=== PATIENT | female | born 1950 | race Caucasian/White ===

== ENCOUNTER → 2018-05-07 10:21 | Outpatient (CLI) | payer OTHER, SELFPAY ==
[2018-03-05 13:05] VITALS: BMI 25.7
[2018-05-07 14:04] LABS: Chlamydia Trachomatis by PCR Negative (Negative); Neisserai gonorrhoeae by PCR Negative (Negative); Probe Check PASS; Sample Adequacy Control PASS; Specimen Processing Control PASS
--- OUTSIDE RECORDS SUMMARY | 2018-07-12 05:00 | XMS RPT_ITS | Clinical Summary ---
:1950 Author Organization [facility], [facility] Address [address] [place] [address] Phone Care Team Providers Name Role Phone Cathy Hilliard Unavailable Conditions or Problems Problem Problem Onset Status Entry Provider Comment Standard Annotate Name Code Date Date Description Body Mass 628411704 Active Yazmin Luna Finding of body Index (SNOMED 11/09 11/09 Clif, mass index 26.0-26.9, CT) PA-C adult Bronchitis, 91473999 Inactive Carson A Acute acute (SNOMED 10/25 10/[address]) Screening 021843777 Active Carson A Screening for for breast (SNOMED 10/06 10/[address] Stan DO [address] cancer CT) neoplasm of breast Body Mass 190396231 Inactive Yazmin Luna Finding of body Index (SNOMED 11/09 11/09 Clif, mass index 28.0-28.9, CT) PA-C adult LONG-TERM 828164955 Active Sheeba Telles Long-term drug (CURRENT) (SNOMED 12/07 12/[address] Gayle therapy [address] OF [address]) RN OTHER MEDICATIONS BODY MASS Z68.30 Resolved Georges Perez Body mass index INDEX (ICD-10-CM 05/13 05/13 [place] (BMI) 30.0-30.9 ) 30.0-30.9, ADULT adult BODY MASS Z68.30 Removed Yazmin Luna Body mass index INDEX (ICD-10-CM 05/13 05/13 Clif, (BMI) 30.0-30.9 ) PA-C 30.0-30.9, ADULT adult Family 466205391 Active Yazmin Luna FH: History of (SNOMED 05/13 Clif, Hypertension Hypertensio CT) PA-C n Family 004851918 Active Yazmin Luna Family history History of (SNOMED 05/13 Clif, of stroke CVA or CT) PA-C Stroke BODY MASS Z68.29 Inactive Georges Perez Body mass index INDEX (ICD-10-CM 11/09 11/09 Moodisp[place]ry (BMI) 29.0-29.9 ) 29.0-29.9, ADULT adult SINUS 12042344 Active Georges Perez Sinus BRADYCARDIA (SNOMED 05/27 05/[address]) SHORTNESS 579213953 Active Shilpa Pereyra Dyspnea OF BREATH (SNOMED 05/17 05/[address]) DIASTOLIC 1266304 Active Shilpa Klein Fair Diastolic DYSFUNCTION (SNOMED 05/17 05/[address]) CHEST PAIN R07.9 Active Shilpa Pereyra Chest pain, UNSPECIFIED (ICD-10-CM 05/17 05/17 RN unspecified ) HYPERLIPIDE 02902365 Active Shilpa Pereyra Hyperlipidemia [place] (SNOMED 05/17 05/[address]) HYPERTENSIO 29092550 Active Shilpa Pereyra Hypertensive N (SNOMED 05/17 05/[address]) PREMATURE 52654452 Active Shilpa Pereyra Ventricular VENTRICULAR (SNOMED 05/17 05/17 RN premature beats CONTRACTION CT) S Medications Medication Instructions Start Stop Generic Name [facility] Provider Date Date LOSARTAN One tablet by / LOSARTAN [id number] Yazmin Luna POTASSIUM 25 MG mouth daily 23 POTASSIUM Clif, TABS PA-C PRAVASTATIN One tablet by / PRAVASTATIN [id number] Georges Perez SODIUM 20 MG mouth daily at 18 SODIUM Chito WONG TABS bedtime LOSARTAN One tablet by / LOSARTAN [id number] Georges Perez POTASSIUM 25 MG mouth daily 21 POTASSIUM Chito WONG TABS LOSARTAN One tablet by / LOSARTAN [id number] Yazmin Luna POTASSIUM 50 MG mouth daily 21 POTASSIUM Clif, TABS PA-C AMLODIPINE One tablet by / AMLODIPINE [id number] Yazmin Luna BESYLATE 2.5 MG mouth daily 22 BESYLATE Clif TABS PA-C LOSARTAN One tablet by / LOSARTAN 44506260145 Yazmin Luna POTASSIUM 50 MG mouth daily POTASSIUM Clif TABS PALaura NORVASC 2.5 MG One tablet by / AMLODIPINE 16115629793 Georges Perez TABS mouth daily BESYLATE Chito WONG NORVASC 2.5 MG One tablet by AMLODIPINE 12058832231 Georges Perez TABS mouth daily BESYLATE Chito WONG CALCIUM CITRATE Elemental / CALCIUM CITRATE 90944783319 Georges F 200 MG TABS calcium Take as Chito WONG directed CALCIUM CITRATE Elemental CALCIUM CITRATE 41869390195 Georges Perez 200 MG TABS calcium Take as Chito WONG directed POTASSIUM 99 MG One tablet by / POTASSIUM 90270899271 Georges F TABS mouth daily as Chito WONG needed POTASSIUM 99 MG One tablet by POTASSIUM 04081836758 Georges Perez TABS mouth daily as Chito WONG needed ATORVASTATIN One tablet by / ATORVASTATIN 58628052073 Georges Perez CALCIUM 20 MG mouth daily CALCIUM Chito WONG TABS ATORVASTATIN One tablet by ATORVASTATIN 36823324569 Yazmin Luna CALCIUM 20 MG mouth daily CALCIUM KENYON MenezesS PA-C ATORVASTATIN One tablet by / ATORVASTATIN [id number] Georges Perez CALCIUM 20 MG mouth daily (on CALCIUM Chito WONG TABS HOLD) ATORVASTATIN One tablet by ATORVASTATIN 63296876478 Sheeba Telles CALCIUM 20 MG mouth daily (on CALCIUM Gayle PARRY TABS HOLD) LISINOPRIL 20 One tablet by / LISINOPRIL 23242363309 Shilpa Klein Fair MG TABS mouth daily RN LISINOPRIL 20 One tablet by LISINOPRIL 43381573741 Georges F MG TABS mouth daily Chito WONG OMEPRAZOLE 20 One tablet by / OMEPRAZOLE 22842104588 Shilpa Klein Fair MG CPDR mouth daily 26 RN OMEPRAZOLE 20 One tablet by OMEPRAZOLE 90060727605 Georges F MG CPDR mouth daily Chito WONG LOSARTAN One tablet by / LOSARTAN 62954433759 Georges Perez POTASSIUM 100 mouth daily 05 POTASSIUM Chito MD MG TABS ATORVASTATIN One tablet by / ATORVASTATIN 27744734322 Shilpa Pereyra CALCIUM 20 MG mouth daily 26 CALCIUM RN TABS ATORVASTATIN One tablet by / ATORVASTATIN 18317783457 Yazmin Luna CALCIUM 20 MG mouth daily CALCIUM Menezes TABS PA-C AMLODIPINE Two tablets by / AMLODIPINE 88851241930 Georges Perez BESYLATE 2.5 MG mouth daily 13 BESYLATE Chito WONG TABS LOSARTAN One tablet by LOSARTAN 65372989141 Carson A POTASSIUM 25 MG mouth daily POTASSIUM Stan DO TABS [facility] FISH OIL 2 capsules by / OMEGA-3 FATTY 84040764608 Carson A 1200 MG CAPS mouth daily 17 ACIDS Stan DO MAG-TAB SR 84 to equeal 20mg, / MAGNESIUM 90267125810 Carson A MG (7MEQ) twice daily 17 LACTATE Stan DO CR-TABS RED WINE 350mg capsules / MISC NATURAL 38265743619 Carson A EXTRACT CAPS 6 times daily 17 PRODUCTS Stan DO PRAVASTATIN One tablet by PRAVASTATIN 30115370882 Yazmin uLna SODIUM 20 MG mouth daily at SODIUM Clif TABS bedtime PA-C CINNAMON 500 MG One tablet by / CINNAMON 96494627638 Georges Perez CAPS mouth daily 08 Chito WONG CINNAMON 500 MG One tablet by CINNAMON 77129779721 Yazmin Luna CAPS mouth daily LING Menezes-C VITAMIN C-GAY One tablet by / ASCORBIC ACID 28051888732 Yazmin Luna HIPS 500 MG mouth daily Menezes, TABS PA-C VITAMIN C-GAY One tablet by ASCORBIC ACID 43293075921 Carson A HIPS 500 MG mouth daily Stan DO TABS AMLODIPINE One tablet by / AMLODIPINE 54073943812 Georges Perez BESYLATE 2.5 MG mouth daily as 22 BESYLATE Chito WONG TABS needed AMLODIPINE One tablet by AMLODIPINE 36059191162 Carson A BESYLATE 2.5 MG mouth daily as BESYLATE Stan DO TABS needed OMEGA 3-6-9 One tablet by / OMEGA 3-6-9 92656485635 Georges Perez COMPLEX CAPS mouth twice 21 FATTY ACIDS Mood[place] MD daily OMEGA 3-6-9 One tablet by OMEGA 3-6-9 77756281116 Carson A COMPLEX CAPS mouth twice FATTY ACIDS Stan DO daily MAGNESIUM CAPS One tablet by / MAGNESIUM CAPS 50425727060 Georges F mouth daily [place] MD MAGNESIUM CAPS One tablet by MAGNESIUM CAPS 93698614779 Carson A mouth daily Stan DO Medications Administered No information available. Allergies, Adverse Reactions, Alerts Allergy Name Reaction Description Start Date Severity Status Provider PRAVASTATIN mylagias Moderate Active Yazmin Menezes PA-C LIPITOR myalgias Moderate Active Sheeba Araujo RN NKDA Mild No Longer Shilpa Pereyra RN Active Results Date Name Value Unit Range Flag Description Clinical Lists Update: Preload TSH 2.06 u[iU]/mL thyroid stimulating hormone, serum VLDL 13 mg/dL very low density lipoproteins GLUCOSE SER 106 mg/dL blood glucose BUN/CREAT 23.3 urea nitrogen/creatinine ratio, serum CREATININE 0.9 mg/dL creatinine, serum BUN 21 mg/dL urea nitrogen, blood ANION GAP 9 anion gap, serum CO2 24.0 mmol/L carbon dioxide, venous blood CHLORIDE 107 mmol/L chloride, serum POTASSIUM 3.9 mmol/L potassium, serum SODIUM 140 mmol/L sodium, serum PLATELETS 288 10*3/mm3 platelet count MCH 28.9 pg mean corpuscular hemoglobin, RBC MCV 85.2 fL mean corpuscular volume, RBC HCT 36.9 % hematocrit, blood HGB 12.5 g/dL hemoglobin, blood RBC M/UL 4.33 10*6/uL red blood count WBC BLOOD 7.2 10*9/L leukocyte (white blood cells) count, blood Office Visit: MM CHD 10YR RSK 7 % General cardiovascular disease 10Y risk [#] [place].D'Agostino CARD RSK GRP B cardiac risk group Clinical Lists Update: Preload CHOL/HDL 3.2 cholesterol/HDL ratio, serum LDH 145 U/L H LACTATE DEHYDROGENASE PROTEIN, TOT 7.4 g/dL protein, total, serum SGOT (AST) 17 U/L aspartate aminotransferase (SGOT), serum SGPT (ALT) 13 U/L alanine aminotransferase (SGPT), serum ALK PHOS 82 U/L alkaline phosphatase, serum BILI DIRECT 0.1 mg/dL bilirubin, serum, direct BILI TOTAL 0.6 mg/dL bilirubin, serum, total ALBUMIN 4.5 g/dL albumin, serum Office Visit: Sick visit ORALTOBACUSE Never Tobacco smoking status NJIS Office Visit: [facility] HGBA1C 5.7 % Hemoglobin A1c/Hemoglobin.total in Blood Replaced Document: Midmark ECG Observations EKG INTERP Sinus Rhythm WITHIN electrocardiogram interpretation NORMAL LIMITS EKG T AXIS 38 deg T wave axis, electrocardiogram EKG QRS AXIS 53 deg QRS axis, electrocardiogram EKG PWAVAXIS 27 deg P wave axis, electrocardiogram QRS INTERVAL 90 ms QRS duration, electrocardiogram ZZ-GE-unk 436 ms GE use only - for LinkLogic import when terms are not otherwise specified QT INTERVAL new path ms QT interval, electrocardiogram VT INTERVAL 168 ms VT interval, electrocardiogram EKGHRTRATE 66 BPM heart rate on electrocardiogram Clinical Lists Update: Preload CARDEFECHO 65 % Left ventricular Ejection fraction Office Visit DIET PURCHASING ADMINISTRATOR yes Dietary management education, guidance, and counseling (procedure) LDL 129 mg/dL Cholesterol in LDL [Mass/volume] in Serum or Plasma HDL 72 mg/dL Cholesterol in HDL [Mass/volume] in Serum or Plasma CHOLESTEROL 219 mg/dL Cholesterol [Mass/volume] in Serum or Plasma TRIGLYCRDES 90 mg/dL Triglyceride [Mass/volume] in Serum or Plasma SMOK STATUS Never smoker Tobacco use [facility] MEDS REVIEW Done Documentation of current medications (procedure) FALLRSKASSES No Fall risk assessment Plan of Care Type Date Detail Appointment 02:30 PM Georges Dale MD, [address], [address], [place], [address], Appointment 01:00 PM Georges Dale MD, [address], [address], [place], [address], Pending order PFM Pending order Follow Up Appt 1 year Pending order EKG (In office) Pending order Nuclear stress test -exercise Pending order PFM Pending order Follow Up Appt 6 months Pending order Nuclear stress test -exercise Pending order MMM Pending order Follow Up Appt 6 months Pending order EKG (In office) Pending order Mammogram, Screening, both breasts Pending order *Hepatic Function Panel Pending order *Lipid Profile CC PCP Pending order PFM Pending order Follow Up Appt 6 months Pending order *Hepatic Function Panel Pending order *Lipid Profile CC PCP Pending order MMM Pending order Follow Up Appt 6 months Pending order EKG (In office) Pending order PFM Pending order Follow Up Appt 6 months Pending order MMM Pending order Follow Up Appt 6 months Pending order PFM Pending order Follow Up Appt 6 months Pending order MMM Pending order Follow Up Appt 6 weeks Patient education CHOLESTEROL%20AND%20YOUR%20HEALTH, LIPID%20PROFILE Procedures Code Procedure Name Date Entry Date CPT-36527 EKG (In office) F/U PFM PFM FUA 6 months Follow Up Appt 6 months CPT-76290 EKG (In office) F/U MMM MMM FUA 6 months Follow Up Appt 6 months CPT-37492 Mammogram, Screening, both breasts 0788-1 *Hepatic Function Panel 45834-8 *Lipid Profile CC PCP F/U PFM PFM FUA 6 months Follow Up Appt 6 months 0788-1 *Hepatic Function Panel 97891-7 *Lipid Profile CC PCP F/U MMM MMM FUA 6 months Follow Up Appt 6 months [id number] SNOMED-CT: 822448867664036 Current Medications Documented CPT-10571 EKG (In office) F/U PFM PFM FUA 6 months Follow Up Appt 6 months [facility]CT[facility][id number] [facility] [id number] Current Medications Documented F/U MMM MMM FUA 6 months Follow Up Appt 6 months F/U PFM PFM FUA 6 months Follow Up Appt 6 months F/U MMM MMM FUA 6 weeks Follow Up Appt 6 weeks Vital Signs Date Name Value Unit Description BMI (Body Mass Index) 27.25 kg/m2 Body Mass Index [Ratio] BP Diastolic 68 mm[Hg] blood pressure, diastolic - 8462-4 BP Systolic 128 mm[Hg] blood pressure, systolic - 8480-6 Heart Rate 64 /min pulse rate E&M - 8867-4 Height 67 [in_us] height E&M - 8302-2 Height 170.18 cm height in centimeters E&M Respiratory Rate 16 /min respiratory rate E&M - 9279-1 Weight Measured 174 [lb_av] weight E&M - 3141-9 Weight Measured 78.92 kg weight in kilograms E&M BSA (Body Surface Area) 1.89 body surface area Body Temperature 98.1 [degF] temperature E&M
--- OUTSIDE RECORDS SUMMARY | 2018-07-12 05:00 | XMS RPT_ITS | Clinical Summary ---
:1950 Author Organization [facility], [facility] Address [address] [place] [address] Phone Care Team Providers Name Role Phone Cathy Hilliard Unavailable Conditions or Problems Problem Problem Onset Status Entry Provider Comment Standard Annotate Name Code Date Date Description Body Mass 206898526 Active Yazmin Luna Finding of body Index (SNOMED 11/09 11/09 Clif, mass index 26.0-26.9, CT) PA-C adult Bronchitis, 04812553 Inactive Carson A Acute acute (SNOMED 10/25 10/[address]) Screening 332457223 Active Carson A Screening for for breast (SNOMED 10/06 10/06 Stan DO malignant cancer CT) neoplasm of breast Body Mass 289240684 Inactive Yazmin Luna Finding of body Index (SNOMED 11/09 11/09 Clif, mass index 28.0-28.9, CT) PA-C adult LONG-TERM 748428763 Active Sheeba Telles Long-term drug (CURRENT) (SNOMED 12/07 12/07 Gayle therapy USE OF CT) RN OTHER MEDICATIONS BODY MASS Z68.30 Resolved Georges Perez Body mass index INDEX (ICD-10-CM 05/13 05/13 [place] (BMI) 30.0-30.9 ) 30.0-30.9, ADULT adult BODY MASS Z68.30 Removed Yazmin Luna Body mass index INDEX (ICD-10-CM 05/13 05/13 Clif, (BMI) 30.0-30.9 ) PA-C 30.0-30.9, ADULT adult Family 658294140 Active Yazmin Luna FH: History of (SNOMED 05/13 Clif, Hypertension Hypertensio CT) PA-C n Family 198951967 Active Yazmin Luna Family history History of (SNOMED 05/13 Clif, of stroke CVA or CT) PA-C Stroke BODY MASS Z68.29 Inactive Georges Perez Body mass index INDEX (ICD-10-CM 11/09 11/09 Mood[place]abarry (BMI) 29.0-29.9 ) 29.0-29.9, ADULT adult SINUS 99704983 Active Georges Perez Sinus BRADYCARDIA (SNOMED 05/27 05/[address]) SHORTNESS 381675768 Active Shilpa Pereyra Dyspnea OF BREATH (SNOMED 05/17 05/[address]) DIASTOLIC 4194965 Active Shilpa Klein Fair Diastolic DYSFUNCTION (SNOMED 05/17 05/[address]) CHEST PAIN R07.9 Active Shilpa Pereyra Chest pain, UNSPECIFIED (ICD-10-CM 05/17 05/17 RN unspecified ) HYPERLIPIDE 76600594 Active Shilpa Pereyra Hyperlipidemia [place] (SNOMED 05/17 05/[address]) HYPERTENSIO 03961309 Active Shilpa Pereyra Hypertensive N (SNOMED 05/17 05/[address]) PREMATURE 44444712 Active Shilpa Pereyra Ventricular VENTRICULAR (SNOMED 05/17 05/17 RN premature beats CONTRACTION CT) S Medications Medication Instructions Start Stop Generic Name [facility][NOTE 3] Provider Date Date LOSARTAN One tablet by / LOSARTAN [id number] Yazmin Luna POTASSIUM 25 MG mouth daily 23 POTASSIUM Clif, TABS PA-C PRAVASTATIN One tablet by / PRAVASTATIN 72763569430 Georges Perez SODIUM 20 MG mouth daily at 18 SODIUM Chito WONG TABS bedtime LOSARTAN One tablet by / LOSARTAN 95229001696 Georges Perez POTASSIUM 25 MG mouth daily 21 POTASSIUM Chito WONG TABS LOSARTAN One tablet by / LOSARTAN 14160391402 Yazmin Luna POTASSIUM 50 MG mouth daily 21 POTASSIUM Clif, TABS PA-C AMLODIPINE One tablet by / AMLODIPINE 17822176621 Yazmin Luna BESYLATE 2.5 MG mouth daily 22 BESYLATE Clif TABS PA-C LOSARTAN One tablet by / LOSARTAN 61897704719 Yazmin Luna POTASSIUM 50 MG mouth daily POTASSIUM Clif TABS PALaura NORVASC 2.5 MG One tablet by / AMLODIPINE 59713076044 Georges Perez TABS mouth daily BESYLATE Chito WONG NORVASC 2.5 MG One tablet by AMLODIPINE 85655896390 Georges Perez TABS mouth daily BESYLATE Chito WONG CALCIUM CITRATE Elemental / CALCIUM CITRATE 48585386661 Georges F 200 MG TABS calcium Take as Chito WONG directed CALCIUM CITRATE Elemental CALCIUM CITRATE 38650347535 Georges Perez 200 MG TABS calcium Take as Chito WONG directed POTASSIUM 99 MG One tablet by / POTASSIUM 33633071751 Georges F TABS mouth daily as Chito WONG needed POTASSIUM 99 MG One tablet by POTASSIUM 01011785062 Georges Perez TABS mouth daily as Chito WONG needed ATORVASTATIN One tablet by / ATORVASTATIN 57708158599 Georges Perez CALCIUM 20 MG mouth daily CALCIUM Chito WONG TABS ATORVASTATIN One tablet by ATORVASTATIN 86040636468 Yazmin Luna CALCIUM 20 MG mouth daily CALCIUM KENYON MenezesS PA-C ATORVASTATIN One tablet by / ATORVASTATIN 93214517051 Georges Perez CALCIUM 20 MG mouth daily (on CALCIUM Chito WONG TABS HOLD) ATORVASTATIN One tablet by ATORVASTATIN 35840364425 Sheeba Telles CALCIUM 20 MG mouth daily (on CALCIUM Gayle PARRY TABS HOLD) LISINOPRIL 20 One tablet by / LISINOPRIL 94031507983 Shilpa Klein Fair MG TABS mouth daily RN LISINOPRIL 20 One tablet by LISINOPRIL 43245358175 Georges F MG TABS mouth daily Chito WONG OMEPRAZOLE 20 One tablet by / OMEPRAZOLE 01193102085 Shilpa Klein Fair MG CPDR mouth daily 26 RN OMEPRAZOLE 20 One tablet by OMEPRAZOLE 82946425961 Georges F MG CPDR mouth daily Chito WONG LOSARTAN One tablet by / LOSARTAN 10325450003 Georges Perez POTASSIUM 100 mouth daily 05 POTASSIUM Chito MD MG TABS ATORVASTATIN One tablet by / ATORVASTATIN 33701791260 Shilpa Pereyra CALCIUM 20 MG mouth daily 26 CALCIUM RN TABS ATORVASTATIN One tablet by / ATORVASTATIN 80670532701 Yazmin Luna CALCIUM 20 MG mouth daily CALCIUM Menezes TABS PA-C AMLODIPINE Two tablets by / AMLODIPINE 11726980298 Georges Perez BESYLATE 2.5 MG mouth daily 13 BESYLATE Chito WONG TABS LOSARTAN One tablet by LOSARTAN 55349565206 Carson A POTASSIUM 25 MG mouth daily POTASSIUM Stan DO TABS [facility] FISH OIL 2 capsules by / OMEGA-3 FATTY 91243986049 Carson A 1200 MG CAPS mouth daily 17 ACIDS Stan DO MAG-TAB SR 84 to equeal 20mg, / MAGNESIUM 87786785307 Carson A MG (7MEQ) twice daily 17 LACTATE Stan DO CR-TABS RED WINE 350mg capsules / MISC NATURAL 32714095840 Carson A EXTRACT CAPS 6 times daily 17 PRODUCTS Stan DO PRAVASTATIN One tablet by PRAVASTATIN 84246830047 Yazmin Luna SODIUM 20 MG mouth daily at SODIUM Clif TABS bedtime PA-C CINNAMON 500 MG One tablet by / CINNAMON 53951805269 Georges Perez CAPS mouth daily 08 Chito WONG CINNAMON 500 MG One tablet by CINNAMON 95117969022 Yazmin Luna CAPS mouth daily LING Menezes-C VITAMIN C-GAY One tablet by / ASCORBIC ACID 27496223800 Yazmin Luna HIPS 500 MG mouth daily Menezes, TABS PA-C VITAMIN C-GAY One tablet by ASCORBIC ACID 37593471327 Carson A HIPS 500 MG mouth daily Stan DO TABS AMLODIPINE One tablet by / AMLODIPINE 49685802232 Georges Perez BESYLATE 2.5 MG mouth daily as 22 BESYLATE Chito WONG TABS needed AMLODIPINE One tablet by AMLODIPINE 14658083769 Carson A BESYLATE 2.5 MG mouth daily as BESYLATE Stan DO TABS needed OMEGA 3-6-9 One tablet by / OMEGA 3-6-9 81181647270 Georges Perez COMPLEX CAPS mouth twice 21 FATTY ACIDS Mood[place] MD daily OMEGA 3-6-9 One tablet by OMEGA 3-6-9 86175473633 Carson A COMPLEX CAPS mouth twice FATTY ACIDS Stan DO daily MAGNESIUM CAPS One tablet by / MAGNESIUM CAPS 81454840568 Georges F mouth daily Mood[place] MD MAGNESIUM CAPS One tablet by MAGNESIUM CAPS 02720214626 Carson A mouth daily Stan DO Medications [...] % General cardiovascular disease 10Y risk [#] [place].D'Agostino CARD RSK GRP B cardiac risk group [...] Sick visit ORALTOBACUSE Never Tobacco smoking status VAIS Office Visit: [facility] HGBA1C 5.7 % Hemoglobin A1c/Hemoglobin.total in Blood [...] INTERVAL new path ms QT interval, electrocardiogram NE INTERVAL 168 ms NE interval, electrocardiogram EKGHRTRATE 66 BPM heart rate on electrocardiogram Clinical Lists Update: Preload CARDEFECHO 65 % Left ventricular Ejection fraction 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 Dietary management education, guidance, and counseling (procedure) LDL 129 mg/dL Cholesterol in LDL [Mass/volume] in Serum or Plasma HDL 72 mg/dL Cholesterol in HDL [Mass/volume] in Serum or Plasma CHOLESTEROL 219 mg/dL Cholesterol [Mass/volume] in Serum or Plasma TRIGLYCRDES 90 mg/dL Triglyceride [Mass/volume] in Serum or Plasma SMOK STATUS Never smoker Tobacco use [facility] MEDS REVIEW Done Documentation of current medications (procedure) FALLRSKASSES No Fall risk assessment Plan of Care Type Date Detail Appointment 01:00 PM Georges Dale MD, [address], [address], [place], [address], Pending order PFM Pending order Follow Up [...] Procedures Code Procedure Name Date Entry Date CPT-37434 EKG (In office) F/U PFM PFM FUA 6 months Follow Up Appt 6 months CPT-50168 EKG (In office) F/U MMM MMM FUA 6 months Follow Up Appt 6 months CPT-03173 Mammogram, Screening, both breasts 0788-1 *Hepatic Function Panel 99280-1 *Lipid Profile CC PCP F/U PFM PFM FUA 6 months Follow Up Appt 6 months 0788-1 *Hepatic Function Panel 56817-7 *Lipid Profile CC PCP F/U MMM MMM FUA 6 months Follow Up Appt 6 months [id number] SNOMED-CT: [id number] Current Medications Documented CPT-81462 EKG (In office) F/U PFM PFM FUA 6 months Follow Up Appt 6 months SCT-[id number] SNOMED-CT: [id number] Current Medications Documented F/U MMM MMM FUA [...]
--- OUTSIDE RECORDS SUMMARY | 2018-07-12 05:00 | XMS RPT_ITS ---
:1950 Author Organization OHIP Care Team Providers Name Role Phone DONG DUNN Admitting Unavailable DONG DUNN Attending Unavailable DONG DUNN Primary Care Unavailable DARON PIERCE Consulting Unavailable PROVIDER, UNKNOWN Consulting Unavailable Daron Pierce Attending Unavailable Daron Pierce Primary Care Unavailable Yazmin May Attending Unavailable Georges Dale Attending Unavailable Daron Pierce Referring Unavailable PROBLEMS PROBLEMS DATE TYPE CONDITION / CODE ATTENDING STATUS SOURCE 05/08/2018 Unknown N34.2 - Other Daron Pierce Active [place] urethritis / Community N34.2(ICD-10) Hospital Repository PROCEDURES PROCEDURES No Procedure Records FoundRESULTS RESULTS CT/NG [facility] BY PCR Collected: 05/07/2018 Status: F Source: [place] [facility] TYPE CODE TESTS RESULT OUT OF RANGE REFERENCE UNITS LAB L8200.2100 Negative Normal Chlam Negative Trac PCR LAB L8200.2200 Negative Normal NG by Negative PCR Performed By: #### L8200.2000 #### [facility] [address] [place], [address] PROGRESS Observed: 04/29/2018 Status: COMPLETED Source: [place] 4:29 PM [facility] REPOSITORY HNO ID: [id number] Author: Sean Contreras) [place] Service: (none) Author Type: Physician Patient Partner Type: Progress Notes Filed: 04/29/2018 4:31 PM Note Text: Subjective HPI Patient presents with chief complaint of dysuria and frequency over the past week. She denies any fever or chills. Chest some back pain yesterday but that went away. She is having some suprapubic discomfort. No vomiting or diarrhea. No vaginal discharge. Review of Systems Gastrointestinal: Positive for abdominal pain. Negative for diarrhea, nausea and vomiting. Genitourinary: Positive for dysuria, frequency and urgency. Negative for flank pain and hematuria. All other systems reviewed and are negative. PAST MEDICAL HISTORY Diagnosis Date - Abnormal nuclear stress test 2002 - Anxiety state, unspecified Anxiety state - Benign neoplasm of stomach - GERD (gastroesophageal reflux disease) 07/12/2010 - Hyperlipidemia LDL goal < 130 02/06/2011 - Nonspecific abnormal finding in stool contents - Other symptoms involving digestive system(787.99) Current Outpatient Prescriptions: cephALEXin (KEFLEX) 500 mg capsule Take 1 capsule by mouth twice daily for 7 days. Disp: 14 capsule Rfl: 0 atorvastatin (LIPITOR) 20 mg tablet Take 1 tablet by mouth once daily. For cholesterol. (Patient not taking: Reported on 04/29/2018 ) Disp: 30 tablet Rfl: 12 cyclobenzaprine 10 mg tablet Take 1 tablet by mouth three times daily as needed for Muscle Spasm. (Patient not taking: Reported on 04/29/2018 ) Disp: 30 tablet Rfl: 3 omeprazole 20 mg capsule Take 1 capsule by mouth daily before breakfast. 1/2 hr before meal. (Patient not taking: Reported on 04/29/2018 ) Disp: 30 capsule Rfl: 0 Bee Pollen 580 mg cap Take by mouth once daily as needed. Disp: Rfl: OMEGA-3/DHA/EPA/FISH OIL (OMEGA-3 FISH OIL ORAL) Take by mouth once daily. Disp: Rfl: COMPOUNDED PRESCRIPTION Take 1 tablet by mouth once daily. Advanced cholesterol formula1 tablets daily (Patient not taking: Reported on 04/29/2018 ) Disp: Rfl: 0 No current facility-administered medications for this visit. PAST SURGICAL HISTORY Procedure Laterality Date - BREAST BIOPSY X 2 - COLONOSCOP W/ OR W/O [facility] SPEC 02/20/12 Colonoscopy repeat 10 years - EGD W/O OR W/BRUSH/WASH 11/17/2010 EGD - EGD W/O OR W/BRUSH/WASH 02/20/12 EGD - TOTAL ABDOM HYSTERECTOMY 2002 BSO also FAMILY HISTORY Problem Relation Age of Onset - Breast Cancer Sister - Diabetes Paternal Grandfather - Colon Cancer Maternal Grandmother Social History Substance Use Topics - Smoking status: Never Smoker - Smokeless tobacco: Never Used - Alcohol use No BP 182/104 Pulse 66 Temp 37.1 ?C (98.7 ?F) (Tympanic) Resp 18 Wt 73.3 kg (161 lb 9.6 oz) SpO2 98% BMI 26.08 kg/m? Objective Physical Exam Constitutional: She is oriented to person, place, and time and well-developed, well-nourished, and in no distress. HENT: Head: Normocephalic and atraumatic. Neck: Normal range of motion. Neck supple. Cardiovascular: Normal rate, regular rhythm and normal heart sounds. Pulmonary/Chest: Effort normal and breath sounds normal. Abdominal: Soft. Bowel sounds are normal. She exhibits no distension and no mass. There is no tenderness. There is no rebound and no guarding. Musculoskeletal: No cva tenderness Neurological: She is alert and oriented to person, place, and time. Skin: Skin is warm and dry. No rash noted. Psychiatric: Affect normal. Nursing note and vitals reviewed. ASSESSMENT/PLAN: 1. Dysuria - ICD9: 788.1, ICD10: R30.0 (primary diagnosis) acute - UA positive for paul esterase and hematuria - Send urine for culture - Begin treatment with keflex for 7 days - UA DIP, URINE (POC) - URINE CULTURE 2. Acute cystitis with hematuria - ICD9: 595.0, ICD10: N30.01 Sean Muller PA-C Observed: 04/29/2018 Status: F Source: [place] URINE CULTURE 4:00 PM [facility] REPOSITORY Sp. Request/Comment: - Specimen received in preservative Culture Result - 10,000 - <50,000 CFU/ml Lactose negative gram negative bacilli --> ABNORMAL ALERT Insignificant colony count. No further workup. --> ABNORMAL ALERT <10,000 CFU/ml Normal urogenital cindy Performed By: #### URCUL #### [facility] [address] [place] [address] CNOV Observed: 04/29/2018 Status: COMPLETED Source: [place] 3:45 PM [facility] REPOSITORY Office Visit ([facility]) RENEA MANN ([id number]) 1950 F Date Time Provider Department 04/29/18 3:45 PM SEAN MULLER (LING) [facility] During your visit today, we recorded the following information about you: Temperature Pulse Respiration Blood pressure 98.7 degrees 66/minute 18/minute 182/104 Weight 73.3 kg Sean Muller PA-C 04/29/2018 4:31 PM Signed Subjective HPI Patient presents with chief complaint of dysuria and frequency over the past week. She denies any fever or chills. Chest some back pain yesterday but that went away. She is having some suprapubic discomfort. No vomiting or diarrhea. No vaginal discharge. Review of Systems Gastrointestinal: Positive for abdominal pain. Negative for diarrhea, nausea and vomiting. Genitourinary: Positive for dysuria, frequency and urgency. Negative for flank pain and hematuria. All other systems reviewed and are negative. PAST MEDICAL HISTORY Diagnosis Date - Abnormal nuclear stress test 2002 - Anxiety state, unspecified Anxiety state - Benign neoplasm of stomach - GERD (gastroesophageal reflux disease) 07/12/2010 - Hyperlipidemia LDL goal < 130 02/06/2011 - Nonspecific abnormal finding in stool contents - Other symptoms involving digestive system(787.99) Current Outpatient Prescriptions: cephALEXin (KEFLEX) 500 mg capsule Take 1 capsule by mouth twice daily for 7 days. Disp: 14 capsule Rfl: 0 atorvastatin (LIPITOR) 20 mg tablet Take 1 tablet by mouth once daily. For cholesterol. (Patient not taking: Reported on 04/29/2018 ) Disp: 30 tablet Rfl: 12 cyclobenzaprine 10 mg tablet Take 1 tablet by mouth three times daily as needed for Muscle Spasm. (Patient not taking: Reported on 04/29/2018 ) Disp: 30 tablet Rfl: 3 omeprazole 20 mg capsule Take 1 capsule by mouth daily before breakfast. 1/2 hr before meal. (Patient not taking: Reported on 04/29/2018 ) Disp: 30 capsule Rfl: 0 Bee Pollen 580 mg cap Take by mouth once daily as needed. Disp: Rfl: OMEGA-3/DHA/EPA/FISH OIL (OMEGA-3 FISH OIL ORAL) Take by mouth once daily. Disp: Rfl: COMPOUNDED PRESCRIPTION Take 1 tablet by mouth once daily. Advanced cholesterol formula1 tablets daily (Patient not taking: Reported on 04/29/2018 ) Disp: Rfl: 0 No current facility-administered medications for this visit. PAST SURGICAL HISTORY Procedure Laterality Date - BREAST BIOPSY X 2 - COLONOSCOP W/ OR W/O [facility] SPEC 02/20/12 Colonoscopy repeat 10 years - EGD W/O OR W/BRUSH/WASH 11/17/2010 EGD - EGD W/O OR W/BRUSH/WASH 02/20/12 EGD - TOTAL ABDOM HYSTERECTOMY 2002 BSO also FAMILY HISTORY Problem Relation Age of Onset - Breast Cancer Sister - Diabetes Paternal Grandfather - Colon Cancer Maternal Grandmother Social History Substance Use Topics - Smoking status: Never Smoker - Smokeless tobacco: Never Used - Alcohol use No BP 182/104 Pulse 66 Temp 37.1 ?C (98.7 ?F) (Tympanic) Resp 18 Wt 73.3 kg (161 lb 9.6 oz) SpO2 98% BMI 26.08 kg/m? Objective Physical Exam Constitutional: She is oriented to person, place, and time and well-developed, well-nourished, and in no distress. HENT: Head: Normocephalic and atraumatic. Neck: Normal range of motion. Neck supple. Cardiovascular: Normal rate, regular rhythm and normal heart sounds. Pulmonary/Chest: Effort normal and breath sounds normal. Abdominal: Soft. Bowel sounds are normal. She exhibits no distension and no mass. There is no tenderness. There is no rebound and no guarding. Musculoskeletal: No cva tenderness Neurological: She is alert and oriented to person, place, and time. Skin: Skin is warm and dry. No rash noted. Psychiatric: Affect normal. Nursing note and vitals reviewed. ASSESSMENT/PLAN: 1. Dysuria - ICD9: 788.1, ICD10: R30.0 (primary diagnosis) acute - UA positive for paul esterase and hematuria - Send urine for culture - Begin treatment with keflex for 7 days - UA DIP, URINE (POC) - URINE CULTURE 2. Acute cystitis with hematuria - ICD9: 595.0, ICD10: N30.01 Sean Muller PA-C Referring Provider: SELF [200] Allergies As of Date: 04/29/2018 Noted Allergy Reaction SIMVASTATIN 04/09/2011 14 - Other: See Comments Comments: myalgia Date Reviewed: 04/29/2018 Reviewed by: Mary Carmen Lee LPN - Fully Assessed Reason for Visit: UTI [116] Cmt: burning, urgency and freuqency with urination x 1 week Primary Visit Diagnosis:Dysuria [R30.0] Other Visit Diagnosis:Acute cystitis with hematuria [N30.01] Order(s):UA DIP, URINE (POC) [[id number]] Order #: [id number]. #:[id number] URINE CULTURE [SQURCUL] Order #: [id number] cephALEXin (KEFLEX) 500 mg capsuleTake 1 capsule by mouth twice daily for 7 days.Disp: 14 capsuleRfl: 0 Prescriptions as of 04/29/2018 Sig: CEPHALEXIN 500 MG CAPSULE Take 1 capsule by mouth twice* ATORVASTATIN 20 MG TABLET Take 1 tablet by mouth once d* Patient not taking: Reported on 04/29/2018 CYCLOBENZAPRINE 10 MG TABLET Take 1 tablet by mouth three * Patient not taking: Reported on 04/29/2018 OMEPRAZOLE 20 MG CAPSULE,STACY* Take 1 capsule by mouth daily* Patient not taking: Reported on 04/29/2018 * BEE POLLEN 580 MG CAPSULE Take by mouth once daily as * * OMEGA-3 FISH OIL ORAL Take by mouth once daily. * COMPOUNDED PRESCRIPTION Take 1 tablet by mouth once d* Patient not taking: Reported on 04/29/2018 Problem List As Of Date 04/29/2018 Noted Resolved LUMP OR MASS IN BREAST [N63.0] INVALID FOR* ATROPHIC VAGINITIS [N95.2] INVALID FOR* FEMALE STRESS INCONTINENCE [N39.3] INVALID FOR* Cystocele, Midline [N81.11] INVALID FOR* GERD (gastroesophageal reflux disease) [K21.9] INVALID FOR* Esophagitis [K20.9] INVALID FOR* Acute gastritis without mention of hemorrhage [*INVALID FOR* Hyperlipidemia LDL goal < 130 [E78.5] INVALID FOR* Abnormal nuclear stress test [R94.39] INVALID FOR* Prescriptions ordered this encounter Disp Refills Start End CEPHALEXIN 500 MG CAPSULE 14 c* 0 04/29/2018 05/06/2018 Class: Print RX Route: ORAL Sig: Take 1 capsule by mouth twice daily for 7 days. Encounter Status:Closed by SEAN MULLER PA-C on 04/29/18 CARDIOLOGY VISIT Observed: 03/05/2018 Status: F Source: [place] REPORT 4:33 PM [facility] REPOSITORY [facility] [address] [place] [address] OFFICE VISIT Date of Service: 03/05/18 MR#: [id number] Acct: [id number] Name: RENEA MANN Rep #: [id number] : 1950 Provider: Georges Dale MD Age/Sex: 67/F Location: [facility] Status: Signed HPI HPI Details: RENEA MANN, is a 67 F who presents to the office today for outpatient cardiovascular follow-up. Since her visit of approximately 1 year ago she states overall from a cardiac standpoint she has done well. She describes no symptoms of classic angina pectoris nor she had any overt episodes of CHF or pulmonary edema. There has been no near syncope or syncope. She has been following her blood pressures at home. She brings in with her. Overall her blood pressures appear to have been under reasonably good control. She states this is without antihypertensive therapy other than on a as needed basis. She states if her blood pressures elevate she will decide whether she takes an amlodipine versus a losartan although she is concerned that the losartan makes her blood pressure too low. She states she was given ramipril by her PCP to take on a as needed basis but she has not done so as the pharmacist indicated that that is not a usual as needed medication. She did have her lipids checked on 02/05/2018. At that time her total cholesterol was reported at 293 with an LDL of 184 and an HDL of 92. Her triglyceride was 87. This is without lipid-lowering medication as she states she has been intolerant to them in the past and has not wanted to retry them. Intake Vital Signs03/05/18 Height 5 ft 6 in 03/05/18 Weight: 159 lb 03/05/18 Body Mass Index (BMI) 25.7 03/05/18 Blood Pressure 152/82 H Intake Visit Reasons: 1 Y FU Allergies atorvastatin [From Lipitor] Adverse Reaction (Severe, Verified 03/05/18 13:05) Myalgias pravastatin Adverse Reaction (Severe, Verified 03/05/18 13:05) Myalgias Medications [place]-3/Dha/Epa/Fish Oil [Fish Oil Dr 500 mg Softgel] 1 ea PO DAILY 12/13/16 [History Confirmed 03/05/18] Wine Extract 4 cap PO DAILY 12/13/16 [History Confirmed 03/05/18] amlodipine 5 mg tablet 5 mg PO DAILY PRN #30 tab 03/05/18 [Rx Confirmed 03/05/18] ascorbic acid (vitamin C) 500 mg tablet 500 mg PO DAILY 03/05/18 [History Confirmed 03/05/18] [facility] Medical History Diastolic dysfunction (Acute) Hyperlipemia (Chronic) Essential hypertension (Chronic) Premature ventricular contraction (Acute) GERD (gastroesophageal reflux disease) (Chronic) Surgical History History of total hysterectomy (Resolved) Family History Father CAD (coronary artery disease) Myocardial infarction, Onset Age: 50 Mother TIA (transient ischemic attack) CVA (cerebral vascular accident) Hypertension Atrial fibrillation Social History Smoking Status: Never smoker alcohol intake: never substance use type: does not use ROS Const Const: Negative for fatigue, weakness, weight gain, weight loss, frequent falls or excessive sweating Eyes Eyes: Negative for change in vision, blurry vision or transient loss of vision ENT ENT: Positive for balance problems (slight unsteadiness); negative for dizziness Cardio Chest Pain: No Palpitations: Yes (rare) Edema: None Muscle aches with walking: None Resp Respiratory: Positive for SOB with activity (slight while going upsatirs); negative for SOB at rest GI GI: Negative vomiting or vomiting blood/hematemesis : Negative for hematuria Musc Musc: Positive for balance problems (slight unsteadiness); negative for muscle aches/ myalgia, muscle weakness or joint pain Skin Skin: Negative non-healing lesions or rash Neuro Neuro: Positive for lack of coordination (patient reports having trouble going upstairs not picking up feet); negative for weakness, blurry vision, dizziness, lightheadedness, frequent falls or orthostatic symptoms Dionicio Hematologic/Lymphatic: Negative for easy bleeding Endo Endo: Negative for fatigue or excessive sweating Psych Psych: Negative for anxiety or depression Allergy Allergy/Immunology: Negative for hives, Negative for rash Cardiology Exam Const Appearance: cooperative, healthy appearing, comfortable, no acute distress, well developed and well groomed Nutritional Appearance: thin Orientation: alert, awake and oriented x3 Head Head: normal to inspection, normocephalic and atraumatic Ears: hearing grossly normal bilaterally Nose: external nose normal Face and Sinus: face symmetric Mouth: oral mucosae normal Teeth and gingiva: fair dentition Eyes Eyelids: eyelids normal Conjunctivae: conjunctivae normal Pupils: PERRL EOM: EOM intact bilaterally Neck Neck: normal visual inspection Carotids: normal carotid upstroke Chest Chest inspection: normal inspection of the chest and symmetric chest movement Auscultation: Bilateral: Clear to Auscultation Cardio Palpation: normal PMI Rate: regular rate Rhythm: regular rhythm Heart sounds: S1 normal and S2 normal Murmur: Grade 2/6, soft, mid systolic, LLSB and LVOT GI GI: normal to inspection, bowel sounds present and soft Neuro General: alert, awake, oriented x3, gait normal, moves all extremities, no focal sensory deficit and no focal motor deficits Skin Skin: no rashes or lesions noted Extremities Pulses: Normal: Right Radial Pulse, Left Radial Pulse Lower Extremity Edema: None: Bilateral Psych Psychological: normal affect Supplemental Info Transthoracic echocardiogram: 05/18/2016 Interpretation Summary Left ventricular systolic function is normal. The estimated ejection fraction is 65 %. Trivial mitral valve insufficiency. Trivial tricuspid valve insufficiency. Mild diffuse aortic valve thickening. Trivial eccentric pulmonic valve insufficiency. Stress test: 05/18/2016 Time The patient exercised on a Jorge protocol for 6 minutes and 30 seconds completing stage 2 and 30 seconds of stage 3, achieving a peak heart rate of 146 beats per minute (93% predicted maximum heart rate) and a peak blood pressure of 182/84 mmHg and a peak MET capacity of 7 METS. The baseline ECG demonstrated normal sinus rhythm. The peak exercise ECG demonstrated no obvious ECG changes. There was an isolated PVC during exercise. The functional capacity was considered average. The patient had no complaint of chest discomfort during exercise or recovery. The examination was discontinued secondary to dyspnea and leg discomfort. IMPRESSION: 1. Technically adequate (percent predicted maximum heart rate greater than 85%) exercise tolerance test. 2. Peak exercise ECG with no obvious ECG changes. 3. Isolated PVC during exercise. 4. Nuclear images pending. MYOCARDIAL PERFUSION IMAGING STUDY: TECHNIQUE: The patient was injected with 11.1 mCi of Tc99m Cardiolite and subsequently rest SPECT Cardiolite nuclear imaging was obtained in the horizontal long, vertical long and short axes views. The patient exercised on a Jorge protocol for 6 minutes and 30 seconds completing stage 2 and 30 seconds of stage 3, achieving a peak heart rate of 146 beats per minute (93% predicted maximum heart rate) and a peak blood pressure of 182/84 mmHg and a peak MET capacity of 7 METS. The patient was injected with 33.5 mCi of Tc99m Cardiolite and subsequently stress SPECT Cardiolite nuclear imaging was obtained in the horizontal long, vertical long and short axes views. A gated Cardiolite study at peak stress was obtained. INTERPRETATION: Rest and stress SPECT Cardiolite nuclear imaging, status post realignment, normalization, pre-attenuation, post-attenuation correction demonstrates the appearance of diminished tracer uptake in the distal anterior segments on the resting views, which appears to be improved and/or normalized on the stress views. There are similar type findings on the resting and stress polar map images. There is notation of end systolic thickening and brightening. The gated Cardiolite study demonstrates myocardial thickening and inward wall motion. The reported LVEF is 68%. There are no myocardial perfusion changes considered diagnostic for associated stress-induced myocardial ischemia or previous myocardial injury/infarction. IMPRESSION: 1. Rest and stress SPECT Cardiolite nuclear imaging demonstrate the appearance of myocardial perfusion changes at rest, which appear to improve and/or normalize following stress appearing compatible with shifting soft tissue attenuation/artifact with no myocardial perfusion changes considered diagnostic for associated stress-induced myocardial ischemia or previous myocardial injury/infarction. 2. The gated Cardiolite study reports an LVEF of 68%. Cardiac cath: 03/10/2003 CONCLUSIONS: 1. Normal left ventricular systolic function, ejection fraction 63%. 2. Mild diastolic dysfunction. 3. Normal coronary arteries. Holter monitor: 08/04/2012 NORMAL SINUS RHYTHM MINIMUM [id number]:41 AM, NOACTIVITYORSYMPTOM RECORDED. AVERAGE HR 77 BPM MAXIMUM HR 135 8PM AT 8:48:05 AM, NO ACTIVITY OR SYMPTOM RECORDED. RARE ISOLATED PREMATURE ATRIAL COMPLEXES. ONE ATRIAL COUPLET. NO RUNS NOTED. FREQUENT ISOLATED PREMATURE VENTRICULAR COMPLEXES. OCCASIONAL VENTRICULAR BIGEMINY AND TRIGEMINY. NO RUNS NOTED. ONE SYMPTOM OF CHEST PAIN DOCUMENTED IN 24 HOUR HOLTER DIARY. MONITOR DURING THIS EPISODE SHOWED SINUS TACHYCARDIA RATE 103 BPM WITH AN ISOLATED PREMATURE VENTRICULAR COMPLEX. NO ST CHANGES NOTED. Assessment AND Plan 1. Premature ventricular beat I49.3 Plan At the present time she appears to be doing well with no concerning ectopy or hemodynamic compromise. She will continue to be followed 2. Hyperlipidemia, unspecified hyperlipidemia type E78.5 Plan Her lipid labs are elevated. She does not want to retry lipid-lowering medication. Her graph she wants to pursue her dietary adjustment. She states she has not been as physically active as she should be. She wants to try and become more active with the hopes that that will help her lipid profile 3. Essential hypertension I10 Plan Her blood pressures at the moment appear recently well controlled based on her home blood pressure recordings. They are somewhat elevated today. She does not want to take medication on a regular routine basis. She only wants to use as needed blood pressure medication. Thus at the present time she was asked to only use her amlodipine as a as needed medication unless otherwise not tolerated. She was asked not to mix and match her other antihypertensive therapies. She was asked to discontinue them. Of note with her other medications such as her losartan she states she was quartering those medications to take for her blood pressure because of her concern that her blood pressure would be too low Plan Detail Other Medications New: Discontinued: Additional Comments Again she was asked to monitor her vital signs. She was asked to report any concerns. She was asked to consider if need be taking antihypertensive therapy on a regular basis. She states depending upon her blood pressure recordings she will consider it. She will work as best she can with her diet and activity bring her lipids under better control. Again she does not want to take lipid-lowering medication Thank you for allowing me to participate in the care of your patient. Please don't hesitate to call if any issues arise. This note was generated using a voice recognition system and there may be incorrect words, spelling or punctuation that were not noted when reviewing the office note prior to saving. Follow Up 1 Year (PFM) Coding Level of Care Code Off vis,est,level 3 Diagnoses Premature ventricular beat I49.3 Hyperlipidemia, unspecified hyperlipidemia type E78.5 Hyperlipidemia type: unspecified Essential hypertension I10 Coding Level of Care Code Off vis,est,level 3 Diagnoses Premature ventricular beat I49.3 Hyperlipidemia, unspecified hyperlipidemia type E78.5 Hyperlipidemia type: unspecified Essential hypertension I10 03/05/18 1633 <Electronically signed by Georges Dale MD> Date Georges Dale MD Cosigner Signature: Date (if applicable) CC: Daron Pierce DO LIPID PROFILE Collected: 02/05/2018 Status: F Source: [facility] 7:40 AM [facility] REPOSITORY TYPE CODE TESTS RESULT OUT OF REFERENCE UNITS RANGE LAB LIPID PROFILE(LOIN C) LIPID PROFILE Result Comment: LIPID PROFILE LAB TRIGLYCERIDE(LOINC) 0 - 150 mg/dl TRIGLYCERIDE 87 LAB CHOLESTEROL(LOINC) 0 - 200 mg/dl CHOLESTEROL High 293 LAB HDL(LOINC) 40 - 60 mg/dl HDL High 92 LAB CHOL/HDL(LOINC) 0.0 - 5.0 CHOL/HDL 3.2 LAB LDL(LOINC) 0 - 129 mg/dl LDL High 184 Performed By: #### [id number] #### [facility],[address] [place] [address] ALLERGIES ALLERGIES DATE TYPE / CODE NAME / CODE REACTION SEVERITY SOURCE 03/05/2018 Drug pravastatin/[id number] MYALGIAS SV [place] Allergy/416 3606(RXNORM) [facility] 155296([facility] ED CT) Repository 03/05/2018 Drug atorvastatin/F0060 MYALGIAS SV [place] Allergy/416 39353(RXNORM) [facility] 164331([facility] ED CT) Repository 04/09/2011 DRUG SIMVASTATIN OTHER: SEE [facility] INGREDI/[address] [place] 399950(SN Repository ED CT) Drug NKDA - NO KNOWN Moderate Michele Pomerene Allergy/416 DRUG ([facility] [id number]([facility] ALLERGIES/[id number] Modifier) Hospital ED CT) (RXNORM) (Qualifier Repository Value) ENCOUNTERS ENCOUNTERS ADMIT/DISCHARGE ACCOUNT ADMITTING ENCOUNTER LOCATION SOURCE NUMBER CLASS 05/07/2018 [id number] [facility] ing:BFHLAB Repository 04/29/2018/04/30/19 [id number] Ambulatory [address] Repository 03/05/2018/03/05/20 [id number] Ambulatory BMSBuilding:B [place] [facility] [place] Repository 03/03/2018 [id number] Ambulatory BMSBuilding:[place] Repository 02/05/2018/02/06/20 [id number] MICHELE, Ambulatory Michele Pomerene 18 [facility] Repository PAYERS PAYERS ENCOUNTER GUARANTOR PAYER SUBSCRIBER SOURCE 05/07/2018 Josemanuel [id number] Insurance:[facility]: [address] [id number] [address]Hla: GROUPPolicy Number: Repository [id number] () Date: [facility] [address] [place] [address] [id number]: 05/07/2018 Secondary NOT GIVENUNK Romeo Insurance:SELF PAY [facility] Number: Effective Repository Date:2018-05-07 03/05/2018 Josemanuel [id number] [address] Insurance:[facility]: [address] [id number] [address]Qix: GROUPPolicy Number: Repository [id number] (HP) Date: [address] [place] [address] [id number]: 03/05/2018 Secondary NOT GIVENUNK Perry Insurance:SELF PAY [facility] Number: Effective Repository Date:2017-04-05 03/03/2018 Josemanuel [id number] Primary [facility] Insurance:KARINA RHOADESOB: Community [address] [place] [address] [id number] [address]Dbm: GROUPPolicy Number: Repository [id number] (HP) Date: [address] [address]TH: 03/03/2018 Secondary NOT GIVENUNK Perry Insurance:SELF PAY [facility] Number: Effective Repository Date:2018-03-03
== END ==
PROVIDERS: Family Provider Family Medicine; PCP Family Medicine; Visit Provider Family Medicine
DX: N34.2 Other urethritis (principal)
CPT/HCPCS: 87491; 87591

== ENCOUNTER 2019-05-20 11:27 | Emergency (ER) | payer OTHER, SELFPAY ==
[2019-03-13 15:31] VITALS: BMI 27.6
[2019-05-20 11:28] VITALS: BP 156/98; PULSE 68; RESP 16; TEMP 36.4; O2SAT 98; BMI 26.8
--- NOTE | 2019-05-20 11:46 | EKG12_ITS ---
Test Reason : CP Blood Pressure : / mmHG Vent. Rate : 064 BPM Atrial Rate : 064 BPM P-R Int : 176 ms QRS Dur : 082 ms QT Int : 404 ms P-R-T Axes : 031 031 045 degrees QTc Int : 416 ms Normal sinus rhythm Normal ECG Confirmed by DANK WONG, SASHA ([id number]), art editor EDUARDO SOLANO ([id number]) on 05/22/2019 1:11:56 PM Referred By: RACH Confirmed By:DONNA WEEMS MD
--- NOTE | 2019-05-20 11:47 | CT_ITS ---
STUDY: CT BRAIN WITHOUT CONTRAST REASON FOR EXAM: Female, 68 years old. HEADACHE, DIZZINESS, HTN RADIATION DOSAGE (If Supplied By Facility): CTDIvol = ( 60.81 ) mGy, DLP = ( 1021.47 ) mGycm TECHNIQUE: Transaxial CT imaging of the brain was performed without administration of intravenous contrast material. Individualized dose optimization techniques were used for this CT. COMPARISON: Comparison is made with prior study dated July 27, 2012. FINDINGS: Normal soft tissue structures. Normal calvarium. Normal size ventricles and extra-axial spaces for the patient''s age. Normal white matter tracts of the cerebral hemispheres. Normal basal ganglia and thalami. Normal brainstem. Normal cerebellum. There is no intracranial hemorrhage. There are no findings of an acute ischemic infarction. Normal visualized paranasal sinuses. CT/Brain/Head without Contrast IMPRESSION: Normal unenhanced CT scan of the brain. Electronically Signed: Arvin Norris, at 12:38 EST , Service support ,
--- NOTE | 2019-05-20 11:50 | RAD_ITS ---
STUDY: X-RAY CHEST REASON FOR EXAM: Female, 68 years old. HYPERTENSION AND NOT FEELING WELL, SOME CHEST DISCOMFORT. TECHNIQUE: Single AP portable view of the chest. COMPARISON: Comparison is made with prior study dated May 15, 2016. FINDINGS: EKG electrodes are seen. Hyperinflation. There is no demonstrated pleural abnormality. Normal size heart. Normal mediastinum and tom. Normal visualized pulmonary arteries. There is atherosclerotic tortuosity of the aortic arch and descending thoracic aorta. There are diffuse degenerative changes of the visualized thoracic spine. Normal visualized ribs, clavicles, and shoulders. There is no demonstrated abnormality of the visualized soft tissue structures of the upper abdomen. RAD/Chest 1 View (Portable) IMPRESSION: Hyperinflation. The lungs are clear. Electronically Signed: Arvin Norris, at 12:18 EST , Service support ,
[2019-05-20 12:02] VITALS: BP 162/82; PULSE 68; RESP 13; O2SAT 98
[2019-05-20 12:07] LABS: Absolute Lymphocyte Count 1.61 X10^3/uL (0.83-4.51); Absolute Neutrophil Count 5.6 X10^3/uL (2.0-7.7); Basophil# 0.03 X10^3/uL; Basophil% 0.4 % (0-1); Eosinophil# 0.02 X10^3/uL; Eosinophils% 0.3 % (0-5); Hematocrit 41.7 % (37-47); Lymphocyte # 1.61 X10^3/ul (4.0); Lymphocyte % 20.8 % (19-41); Mean Corp Hgb Conc 33.6 g/dL (32-36); Mean Corpuscular Hgb 29.4 pg (27.0-32.0); Mean Corpuscular Volume 87.4 fL (81-99); Mean Platelet Vol. 8.9 fl (6.2-12.0); Monocyte# 0.46 X10^3/uL; NRBC Flagged by Analyzer 0 % (0-5); Neutrophil # 5.59 X10^3/uL (2.7-7.7); Neutrophil % 72.2 % (47-70); Platelet Count 342 K/mm3 (150-450); RBC Distribution Width CV 12.4 % (11.6-14.6); RBC Distribution Width SD 39.7 fl (35.1-43.9); Red Blood Count 4.77 M/mm3 (4.2-5.4); White Blood Count 7.7 K/mm3 (4.4-11.0)
[2019-05-20 12:33] LABS: Anion Gap 5 (5-15); BUN 22 mg/dL (7-18); BUN/Creat Ratio 25.2 RATIO (10-20); Calcium,Total 9.9 mg/dL (8.5-10.1); Chloride 107 mmol/L (98-107); Creatinine, Serum 0.87 mg/dL (0.55-1.02); EST Glomerular Filtration Rate 69 mL/min (>60); Est Glom Filt Rate - Afr Amer 83 mL/min (>60); Estimated Creatinine Clearance 58.74 ml/min; Glucose 84 mg/dL (74-106); Lipase 102 U/L (73-393); Potassium 4.2 mmol/L (3.5-5.1); Sodium Level 138 mmol/L (136-145)
[2019-05-20 12:34] LABS: D-Dimer Quantitative (DVT/PE) 0.77 FEU/ug/m (0.27-0.49)
[2019-05-20] MEDS: 0.9% Normal Saline 1,000 ML 150 ML IV (12:35)
[2019-05-20] MEDS: Aspirin 81 MG TAB.CHEW 324 MG PO (12:35)
--- NOTE | 2019-05-20 12:38 | CT_ITS ---
STUDY: CTA CHEST REASON FOR EXAM: Female, 68 years old. PT STATED MCMANUS AFTER HTN YESTERDAY, CHEST PAIN RADIATION DOSAGE (If Supplied By Facility): CTDIvol = ( 18.05 ) mGy, DLP = ( 415.57 ) mGycm TECHNIQUE: The examination was performed with the intravenous administration of 100 CC ISOVUE 370. Post-processing of the angiographic images was performed, with multiplanar reformation and 3D reconstruction. Individualized dose optimization techniques were used for this CT. COMPARISON: Comparison is made with prior examination dated April 16, 2017. FINDINGS: Normal enhancement of the main pulmonary artery and right and left pulmonary arteries. Normal enhancement of the bilateral peripheral pulmonary arteries. There is no demonstrated pulmonary embolism. Normal thoracic aorta and visualized great vessels. There is no demonstrated aortic dissection. Normal heart and pericardium. Normal mediastinum. Normal hilar regions. Normal visualized trachea and bronchi. The lungs are well expanded. Findings suggestive of linear scarring with focal bronchiectasis in the anterior aspect of the left lower lobe abutting the left major fissure. Normal pleura. Normal chest wall structures. There are degenerative changes of thoracic spine. Small hiatal hernia. CT/CTA Chest W/WO Contrast IMPRESSION: No evidence of pulmonary embolism. Focal linear density in the anterior aspect of the left lower lobe adjacent to the major fissure suggestive of scarring. Electronically Signed: Arvin Norris, at 14:19 EST , Service support ,
[2019-05-20 14:29] VITALS: BP 159/75; PULSE 64; RESP 16; O2SAT 97
--- NOTE | 2019-05-20 14:36 | ED.DCSUM_ITS ---
- ER Visit Summary Date of Service: 05/20/19 Chief Complaint: [Chest pain] History of Present Illness: The patient is a 68 F [presents to the emergency department complaint of chest pain that she has had for 4 days. Patient describes a aching in the center of her chest and a burning. Patient states that she thinks it might be her indigestion or heartburn. Patient states that she woke up last evening with a bad headache around 3 AM and noticed that her blood pressure was elevated. Patient had nausea yesterday but no vomiting. Patient has had a cough but is been nonproductive. Patient states that she has had cough and congestion for several months. Patient has history of hypertension and high cholesterol. Patient has chronic neck pain issues that oftentimes cause her headaches. She denies any falls or head injuries. She denies any fevers. Patient states that her last stress test was in 2017 and it was unremarkable. Her last heart catheterization was in 2002.] Patient states that she takes her blood pressure medicine just as needed. Physical Examination: [HEENT-PERRLA, EOMI. Cranial nerves II through XII grossly intact. TMs clear. Mucous membranes moist. No adenopathy. Cardiovascular-regular rate and rhythm without murmur or ectopy Lungs-clear to auscultation, chest wall stable without crepitus or subcu emphysema Abdomen-normoactive bowel sounds, soft, nontender, no rebound or rigidity, no peritoneal signs. Extremities-intact ?4, normal range of motion, normal pulses, atraumatic] Test Results: [EKG obtained arrival showed a sinus rhythm with a ventricular rate of 64 bpm with no acute ST segment changes. CBC with differential showed a white count of 7.7, hemoglobin 14, hematocrit 42, platelets 342. Chemistries unremarkable. Lipase was 102. Troponin was less than 0.015. D-dimer was 0.77. Chest x-ray initially obtained showed hyperinflation. CTA of the chest obtained showed no evidence for PE or dissection and she had a area of left lower lobe scarring. CT scan of the brain without contrast also ordered was negative for anything acute.] Emergency Department Course and Treatment: [Was placed on monitoring specialist on arrival. Patient had received aspirin.] Treatment Plan: [Patient to follow-up with primary care physician within next 3 to 5 days. I did discuss with patient that I cannot rule out cardiac etiology for her pain and initially I recommended admission for possible stress testing. Patient is refusing and states that she believes this is more her heartburn and does not want to be admitted. Patient advised to return to the emergency department if worsening pain, increasing shortness of breath, exertional symptoms, or conditions worsen anyway. Patient also advised to follow-up with her primary care physician about obtaining an MRI of her cervical spine as she has chronic pain leading to headaches and inhibiting her ability to sleep at night.] Disposition: [Discharged home in stable condition] Impression: [Chest pain-etiology uncertain Chronic neck pain] This note was generated with Billetto dictation software. It may contain incorrect words, spelling, and punctuation that were not noted in review of the chart prior to signing ED Disposition - Plan for ED Patient: Referrals: Carson Pierce DO [Primary Care Provider] -
--- NOTE | 2019-05-20 14:41 | ED.DEP ---
ED Disposition - Plan for ED Patient: Instructions: HYPERTENSION, Established, HEADACHE, Unspecified, CHEST PAIN, Uncertain Cause Referrals: Carson Pierce DO [Primary Care Provider] - 3-5 Days
[2019-05-20 14:45] VITALS: BP 159/75; PULSE 63; RESP 14; O2SAT 97
== END 2019-05-20 14:54 | disposition home or self-care (01) ==
PROVIDERS: Emergency Provider Emergency Medicine; PCP Family Medicine
DX: R07.9 Chest pain, unspecified (principal); M54.2 Cervicalgia; G89.29 Other chronic pain; I10 Essential (primary) hypertension; E78.00 Pure hypercholesterolemia, unspecified; R05 Cough; R11.0 Nausea; R51 Headache; Z79.899 Other long term (current) drug therapy
CPT/HCPCS: 70450; 71045; 71275; 80048; 83690; 84484; 85025; 85379; 93005; 96360; 96361; 99285; J7030; Q9967; A4216

== ENCOUNTER → 2020-08-30 13:47 | Outpatient (CLI) | payer SELFPAY, OTHER ==
[2020-03-02 14:03] VITALS: BMI 26.5
--- NOTE | 2020-08-30 13:50 | RAD_ITS ---
STUDY: X-RAY - LEFT ANKLE REASON FOR EXAM: Left lateral ankle and posterior calcaneal pain, open wound at the posterior heel for one month. TECHNIQUE: 3 view(s) of the ankle. COMPARISON: Radiographs 02/10/2015. FINDINGS: Normal visualized distal tibia and fibula. Normal medial and lateral malleoli. Normal tibiotalar articulation and ankle mortise. There are posterior and plantar calcaneal enthesophytes. There is no demonstrated bone destruction of the calcaneus. The visualized subtalar, talonavicular, calcaneocuboid and tarsal articulations are normal. The soft tissue structures are unremarkable. RAD/Ankle min 3 Views IMPRESSION: Calcaneal enthesopathy. Otherwise, unremarkable x-ray examination of the left ankle. Electronically Signed: Abdoulaye Marcus MD at 14:21 EDT Tel , Service support ,
== END ==
PROVIDERS: PCP Family Medicine; Referring Provider Family Medicine; Visit Provider Family Medicine
DX: M77.32 Calcaneal spur, left foot (principal)
CPT/HCPCS: 73610

== ENCOUNTER 2020-12-08 18:34 | Emergency (ER) | payer OTHER, SELFPAY ==
[2020-12-08 18:35] VITALS: BP 174/89; PULSE 73; RESP 16; TEMP 36.6; O2SAT 99; BMI 26.1
--- NOTE | 2020-12-08 19:22 | CT_ITS ---
STUDY: CTA HEAD AND NECK WITH CONTRAST REASON FOR EXAM: Female, 70 years old. paresthesias RADIATION DOSAGE (If Supplied By Facility): CTDIvol = ( 28.84 ) mGy, DLP = ( 1429.72 ) mGycm TECHNIQUE: CT angiography was performed with a multi-detector CT scanner. Data acquisition was obtained from the skull base through the vertex following intravenous administration of IV 100mL Isovue-370. MIP images were reconstructed from the axial data set. Post-processing of the angiographic images was performed, with multiplanar reformation and 3D reconstruction. Individualized dose optimization techniques were used for this CT. COMPARISON: No relevant priors. FINDINGS: Normal bilateral petrous carotid arteries. Normal right cavernous carotid artery with a normal supraclinoid bifurcation. Normal left cavernous carotid artery with a normal supraclinoid bifurcation. Normal right A1 segments of the anterior cerebral artery. Normal left A1 segments of the anterior cerebral artery. Anterior communicating artery not visualized consistent with normal variant. Normal bilateral A2 segments of the anterior cerebral arteries. Normal right M1 and M2 segments of the middle cerebral arteries, with a normal M1 bifurcation. Normal left M1 and M2 segments of the middle cerebral arteries, with a normal M1 bifurcation. The right posterior communicating arteries are normal. There is no left posterior communicating artery consistent with normal variant Normal bilateral vertebral arteries. Normal basilar artery with a normal basilar bifurcation. The visualized bilateral superior cerebellar (SCA) arteries are normal. Normal bilateral P1, P2 and visualized P3 segments of the posterior cerebral arteries. There is no demonstrated aneurysm of the [place]. There is no demonstrated abnormality of the visualized brain. AORTIC ARCH: Normal visualized aortic arch. Normal origins of the brachiocephalic, left common carotid, and left subclavian arteries. RIGHT CAROTID ARTERIES: Normal right common carotid artery (CCA). Minor calcific plaquing of the right common carotid bulb. Normal origin of the right internal carotid (ICA) artery without a hemodynamically significant stenosis. Normal visualized cervical portion of the right internal carotid artery. Normal origin of the right external carotid artery (ECA). LEFT CAROTID ARTERIES: Normal left common carotid artery (CCA). Minor calcific plaquing of the left common carotid bulb. Normal origin of the left internal carotid (ICA) artery without a hemodynamically significant stenosis. Normal visualized cervical portion of the left internal carotid artery. Normal origin of the left external carotid artery (ECA). VERTEBRAL ARTERIES: Normal bilateral vertebral arteries. 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 No evidence for hemodynamically significant stenosis or occlusive thrombus. Electronically Signed: Jerry James MD at 22:15 EDT , Service support ,
--- NOTE | 2020-12-08 19:22 | EKG12_ITS ---
Test Reason : NEURO S/X Blood Pressure : / mmHG Vent. Rate : 062 BPM Atrial Rate : 062 BPM P-R Int : 184 ms QRS Dur : 082 ms QT Int : 438 ms P-R-T Axes : 046 037 048 degrees QTc Int : 444 ms Normal sinus rhythm Normal ECG Confirmed by BETO WONG, KATLYN ([id number]), editor book LUIS KAPOOR ([id number]) on 12/12/2020 1:05:04 PM Referred By: RADHA Confirmed By:KATLYN PÉREZ MD
--- NOTE | 2020-12-08 19:23 | EX.ED.DYSGE1 ---
HPI History of Present Illness Chief Complaint: Neuro S/Sx Informant: patient Onset/Context/Timing Onset: Weeks Context: Gradual Onset Current Severity: Mild Maximum Severity: Moderate Narrative Narrative: Patient presents with 2-week history of tightness on the side of her neck and throat. She has had some intermittent facial numbness over the past couple of days, none currently. She does describe this as being bilateral. She also reports having charley horses when she tries to go to sleep at night. Patient states that she called her doctor today due to concern of carotid disease and he was on the office so she came to the emergency room. She does state that she recently changed her medications secondary to high blood pressure. She was already having these symptoms prior to any medication dose adjustments. [facility] Medical History (Updated 12/08/20 @ 22:[address] Vicky Hirsch MD) Diastolic dysfunction Essential hypertension GERD (gastroesophageal reflux disease) Hyperlipemia Premature ventricular contraction Home Medications ascorbic acid (vitamin C) 500 mg tablet 500 mg PO DAILY 03/05/18 [History Last Taken Unknown] Wine Extract 6 cap PO DAILY 03/13/19 [History Last Taken Unknown] cod liver oil 1 cap PO DAILY 03/13/19 [History Last Taken Unknown] pyridoxine (vitamin B6) 50 mg capsule 50 mg PO DAILY 03/13/19 [History Last Taken Unknown] amlodipine 5 mg PO BID 12/08/20 [History Last Taken Unknown] Allergy/AdvReac Type Severity Reaction Status Date / Time atorvastatin [From Lipitor] AdvReac Severe Myalgias Verified 12/08/20 18:35 pravastatin AdvReac Severe Myalgias Verified 12/08/20 18:35 Family History Father CAD (coronary artery disease) Myocardial infarction, Onset Age: 50 Mother TIA (transient ischemic attack) CVA (cerebral vascular accident) Hypertension Atrial fibrillation Surgical History History of total hysterectomy Social History Smoking Status: Never smoker alcohol intake: never substance use type: does not use ROS ROS ED Constitutional Constitutional ED: Denies chills or fever(s) Eyes Eyes: Denies change in vision ENT ENT ED: Denies sore throat Cardiovascular Cardiovascular: Denies chest pain Respiratory/Chest Respiratory/Chest: Denies cough or dyspnea Gastrointestinal Gastrointestinal: Denies abdominal pain, diarrhea, nausea or vomiting Genitourinary Genitourinary ED: Denies dysuria Musculoskeletal Musculoskeletal: Denies back pain Integumentary Denies rash Neurologic Neurologic: Reports paresthesias; Denies headache(s) or weakness Psychiatric Psychiatric: Denies anxiety or depression Allergic/Immunologic Allergic/Immunologic ED: Denies urticaria EXAM Physical Exam Const Vital Signs: 12/08/20 18:35 Temperature 97.9 F Temperature Source Temporal Pulse Rate 73 Respiratory Rate 16 Blood Pressure 174/89 H Blood Pressure Mean 117 Pulse Ox 99 Positive well nourished and well developed General Appearance ED: well developed HEENT Reports normocephalic and head/scalp atraumatic Eyes PERRL and EOMs intact bilaterally Neck supple Chest Wall inspection of chest normal and palpation of chest normal Resp normal respiratory effort and clear to auscultation bilaterally Cardio regular rate and regular rhythm GI normal to inspection, nondistended, normoactive bowel sounds Palpation: soft Extremity normal to inspection Neuro oriented x3 and no sensory deficits noted Sensorium / Orientation: alert Motor Exam: strength 5/5 throughout Psych mental status grossly normal Skin no rashes or lesions noted MDM MDM MDM Narrative Medical decision making narrative: Lab work and CTA head neck obtained. Lab Data Attestation: I reviewed the patient's lab results. Labs: Laboratory Results - last 24 hr 12/08/20 12/08/20 19:20 19:40 WBC 6.6 RBC 4.63 Hgb 13.5 Hct 41.0 MCV 88.6 MCH 29.2 MCHC 32.9 RDW Std Deviation 41.0 RDW Coeff of Meir 12.6 Plt Count 348 MPV 8.5 Immature Gran % (Auto) 0.300 Neut % (Auto) 58.3 Lymph % (Auto) 32.7 [place] % (Auto) 7.4 Eos % (Auto) 0.5 Baso % (Auto) 0.8 Absolute Neuts (auto) 3.9 Absolute Lymphs (auto) 2.16 Nucleated RBC % 0 Sodium 138 Potassium 3.9 Chloride 105 Carbon Dioxide 31.0 Anion Gap 2 L BUN 19 H Creatinine 0.69 Estim Creat Clear Calc 49.70 Est GFR (MDRD) Af Amer 109 Est GFR (MDRD) Non-Af 90 BUN/Creatinine Ratio 27.7 H Glucose 89 Calcium 9.8 Radiography Diagnostic Testing: Radiology Impression Head/Neck CTA 12/08/20 19:22 IMPRESSION: 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 No evidence for hemodynamically significant stenosis or occlusive thrombus. Electronically Signed: Jerry James MD at 22:15 EDT , Service support , EKG Initial EKG: Attestation: I personally reviewed and interpreted this EKG as follows: Interpretation: Sinus Rhythm (Sinus at 62 with no acute ischemia.) Treatment and Re-Evaluation Comments:: Test results discussed with patient and family at bedside. At this time no acute findings noted on this work-up to explain her symptoms. 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 She will follow-up with her primary care physician. Discharge Plan Triage Chief Complaint: Neuro S/Sx ED Provider: Vicky Hirsch Dx/Rx/DC Orders Clinical Impression: Neck pain, Paresthesias Instructions: ED Neck Pain, ED Paraesthesias Prescriptions: No Action ascorbic acid (vitamin C) 500 mg tablet 500 mg PO DAILY RF: 0 pyridoxine (vitamin B6) 50 mg capsule 50 mg capsule 50 mg PO DAILY RF: 0 cod liver oil Capsule 1 cap PO DAILY RF: 0 Wine Extract 6 cap PO DAILY RF: 0 amlodipine 5 mg tablet 5 mg PO BID RF: 0 Primary Care Provider: Carson Pierce Referrals: Carson Pierce DO [Primary Care Provider] - 1-2 Weeks Disposition Disposition: Home, Self Care
[2020-12-08 19:30] VITALS: BMI 26.1
[2020-12-08 19:46] LABS: Absolute Lymphocyte Count 2.16 X10^3/uL (0.83-4.51); Absolute Neutrophil Count 3.9 X10^3/uL (2.0-7.7); Basophil# 0.05 X10^3/uL; Basophil% 0.8 % (0-1); Eosinophil# 0.03 X10^3/uL; Eosinophils% 0.5 % (0-5); Hemoglobin 13.5 g/dL (12.0-15.0); Lymphocyte # 2.16 X10^3/ul (0.83-4.51); Lymphocyte % 32.7 % (19-41); Mean Corp Hgb Conc 32.9 g/dL (32-36); Mean Corpuscular Hgb 29.2 pg (27.0-32.0); Mean Corpuscular Volume 88.6 fL (81-99); Mean Platelet Vol. 8.5 fl (6.2-12.0); Monocyte# 0.49 X10^3/uL; Monocyte% 7.4 % (0-10); NRBC Flagged by Analyzer 0 % (0-5); Neutrophil # 3.85 X10^3/uL (2.7-7.7); Neutrophil % 58.3 % (47-70); Platelet Count 348 K/mm3 (150-450); RBC Distribution Width CV 12.6 % (11.6-14.6); Red Blood Count 4.63 M/mm3 (4.2-5.4); White Blood Count 6.6 K/mm3 (4.4-11.0)
[2020-12-08 20:25] LABS: Anion Gap 2 (5-15); BUN 19 mg/dL (7-18); BUN/Creat Ratio 27.7 RATIO (10-20); Calcium,Total 9.8 mg/dL (8.5-10.1); Chloride 105 mmol/L (98-107); Creatinine, Serum 0.69 mg/dL (0.55-1.02); EST Glomerular Filtration Rate 90 mL/min (>60); Est Glom Filt Rate - Afr Amer 109 mL/min (>60); Glucose 89 mg/dL (74-106); Potassium 3.9 mmol/L (3.5-5.1); Sodium Level 138 mmol/L (136-145)
[2020-12-08 22:37] VITALS: BP 152/76; PULSE 59; RESP 18; O2SAT 97
== END 2020-12-08 22:38 | disposition home or self-care (01) ==
PROVIDERS: Emergency Provider Emergency Medicine; PCP Family Medicine
DX: M54.2 Cervicalgia (principal); R20.2 Paresthesia of skin; I10 Essential (primary) hypertension; E78.5 Hyperlipidemia, unspecified; K21.9 Gastro-esophageal reflux disease without esophagitis; Z79.899 Other long term (current) drug therapy
CPT/HCPCS: 70496; 70498; 80048; 85025; 93005; 99283; Q9967; A4216

== ENCOUNTER → 2021-03-21 06:27 | Outpatient (CLI) | payer SELFPAY, OTHER ==
--- NOTE | 2021-03-21 09:07 | STRESSREP_ITS ---
Stress Test Report Date: 03-21-2021 Procedure: Pharmacologic stress nuclear imaging study Indications: Chest pain; ventricular ectopy Consent: Per the patient Procedure: The patient underwent pharmacologic (Regadenoson 0.4mg ) evaluation with a peak heart rate of 111 beats per minute (73 %predicted maximal heart rate) and a peak blood pressure of 196/98 mmHg. The baseline ECG demonstrated sinus rhythm. The peak pharmacologic ECG demonstrated no obvious ECG changes. There was an occasional PVC during recovery. There was no complaint of chest discomfort during pharmacologic infusion or recovery. The examination was discontinued secondary to completion of protocol. Impression: 1. Pharmacologic (Regadenoson) evaluation 2. Peak pharmacologic ECG with no obvious ECG changes. 3. There was an occasional PVC during recovery. 4. Nuclear images pending Myocardial perfusion imaging study: Technique: The patient was injected with 11.7 millicuries of technetium 99m Cardiolite and subsequently rest SPECT Cardiolite nuclear imaging was obtained in the horizontal long, vertical long, and short axis views. The patient underwent pharmacologic (Regadenoson) evaluation with a peak heart rate of 111 beats per minute (73 % percent predicted maximal heart rate) and a peak blood pressure of 196/98 mmHg. The patient was injected with 32.1 millicuries of technetium 99m Cardiolite and subsequently stress SPECT Cardiolite nuclear imaging was obtained in the horizontal long, vertical long, and short axis views. A gated Cardiolite study at peak stress was obtained. Interpretation: Rest and stress SPECT Cardiolite nuclear imaging status post realignment, normalization, and attenuation correction demonstrate the appearance of diminished myocardial perfusion uptake in the distal anterior/anteroseptal segments at rest which appear to improve/normalize following stress. There is end systolic thickening and brightening. The gated Cardiolite study demonstrates myocardial thickening and inward wall motion. The reported LVEF is 74 %. Impression: 1. Rest and stress SPECT Cardiolite nuclear imaging demonstrate the appearance of diminished myocardial perfusion uptake in the distal anterior/anteroseptal segments at rest which appear to improve/normalize following stress appearing c/w shifting soft tissue attenuation/artifact with no myocardial perfusion changes considered diagnostic for stress induced myocardial ischemia. 2. The gated Cardiolite study reports an LVEF of 74 %. This note was generated with Tradition Midstreamation software. It may contain incorrect words, spelling, and punctuation that were not noted in checking the note before signing.
== END ==
PROVIDERS: PCP Family Medicine; Referring Provider Internal Medicine Cardiovascular Disease; Visit Provider Internal Medicine Cardiovascular Disease
DX: R07.9 Chest pain, unspecified (principal)
CPT/HCPCS: 78452; 93017; A9500; A4216; J2785

== ENCOUNTER 2021-07-19 10:28 | Day surgery (SDC) | payer SELFPAY, OTHER ==
[2021-07-19 10:50] VITALS: BP 158/81; PULSE 81; RESP 16; TEMP 36.7; O2SAT 100; BMI 24.5
--- NOTE | 2021-07-19 10:54 | HP.PCM_ITS ---
History and Physical Date of Admission: 07/19/21 RENEA MANN, is a 70 F who presents to the office today for For the last three months she has been having difficult with her esophagus including chest pain, esophageal pain causing her to avoid PO intake, heartburn. She has noticed food triggers like sauerkraut. Medications include famotidine PRN, opened calcium capsules PRN, DLG, other natural supplements attempted. DLG has been the most helpful. Presented to [facility] ED previously for evaluation, last seen 2019. Reports taking magnesium to treat constipation. 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 Reports muscle cramping in her legs, feels she may have a UTI because of lower abdominal pain. CT abd/pel 2015 showed decreased attenuation of liver consistent with steatosis. Gastrointestinal history includes GERD with esophagitis, steatosis of liver, IBS. Esophageal burning and chest pain with increased symptoms with PO intake. Famotidine attempted without effect. Last colonoscopy reported as 2014. Additional history includes HTN, TMJ, obstructive sleep apnea, adrenal hyperplasia, COPD, carotid artery disease, hyperlipidemia. ROS Const Constitutional: Positive for fatigue and headache(s); No anorexia, body ache, chills, excessive sweating, fever(s), frequent falls, decreased energy, malaise, night sweats, snoring, weakness, weight change, sleep problems, abnormal sleep pattern, change in appetite or other Eyes Eyes: Positive for blurry vision; No change in vision, double vision, irritation, discharge, vision loss, dry eyes, bulging eyes, floaters, visual disturbances, eye pain, Light sensitivity, spots in vision, tunnel vision or other ENT ENT: Positive for nasal congestion, headache(s), difficulty swallowing, hoarseness and sore throat; No abnormal hearing, ear or mastoid pain, ear discharge, ear pressure, hearing loss, tinnitus, dizziness/vertigo, balance problems, nosebleed/epistaxis, nasal obstruction, nose pain, sinus pressure, sinus pain, nasal discharge, post nasal drip, facial pain, dental pain, dry mouth, bad breath, lip swelling, mouth lesions, mouth pain, neck pain, tongue swelling, throat swelling or other Resp Respiratory: Positive for wheezing; No cough, change in phlegm color, chest congestion, excessive phlegm production, hemoptysis, pain on inspiration, shortness of breath, pain with cough, snoring, stridor or other Cardio Cardiology: Positive for chest pain at rest and leg pain with exertion; No chest pain with exertion, excessive sweating, shortness of breath, dyspnea on exertion, generalized swelling, irregular heart rhythm, lightheadedness, orthopnea, radiating jaw, neck or arm pain, fast heart rate, slow heart rate, palpitations, difficulty breathing or other Gastro GI: Positive for abdominal pain, difficulty swallowing, excessive flatus and nausea/dyspepsia; No belching, bloating, change in bowel habits, change in stool character, coffee ground emesis, constipation, cramping, diarrhea, heartburn, feeling full early, incontinent of stools, Vomiting blood/hematemesis, Blood in stool, loose stools, Black,tarry stools, pain with swallowing, vomiting or other Genitourinary-Female: Positive for urinary incontinence, urinary frequency and Vaginal Itching; No difficulty urinating, burning urination, painful urination, urinary urgency, urinary hesitancy, urinary retention, blood in urine, Frequent nighttime urination/ nocturia, post void dribbling, suprapubic fullness, side pain, sexual problems, genital lesions, genital itching, hot flashes, abnormal periods, abnormal vaginal bleeding, absent period, painful periods, light periods, heavy periods, difficulty getting , painful intercourse, pelvic pain, vaginal dryness, vaginal odor or other Musc Musculoskeletal: Positive for abnormal gait, joint pain, back pain, muscle cramps, muscle weakness, numbness, stiffness, tingling, restless legs, leg pain at night and leg pain with exertion; No deformity, joint swelling, limited range of motion, loss of height, decreased muscle mass, myalgias, neck pain, radiating pain into limb, Arthritis, sciatica or other Skin Skin: Positive for dry skin and itchy eyes; No acne, hair loss in leg, change in hair, nail changes, boil, change in skin color, redness, excessive hair growth, yellowing of the eye, lesions, rash, skin pain, skin ulcer, sores, skin swelling, wounds or other Neuro Neurology: Positive for abnormal gait, headache(s), numbness, tingling and restless legs; No abnormal hearing, abnormal movements, abnormal speech, behavioral changes, confusion, unsteady gait/balance, dizziness, weakness, frequent falls, lack of coordination, loss of vision, memory loss, visual disturbances, fainting, tremor(s), Increased tone in limbs, paralysis, seizures or other Psych Psychiatric: No abnormal sleep pattern, No lack of enjoyment, Positive for anxiety, No behavioral changes, No change in appetite, No confusion, No depression, No difficulty concentrating, No hopelessness, No irritability, No memory loss, No mood swings, No panic attacks, No paranoia, No Thoughts of harming yourself/Others, No hallucinations, No Behavioral Problems, No Compulsive Behavior, No hyperactivity, No inattentiveness, No obsessions/compulsions, No Temper Tantrums, No suicidal ideation and No other Endo Endocrine: Positive for fatigue and heat intolerance; No change in body appearance, cold intolerance, excessive sweating, flushing, increased thirst/drinking, increased hunger, increased urine leakage, weight change or other Aller/Imm Allergy/Immunologic: Positive for itchy eyes and wheezing; No lip swelling, throat swelling or tongue swelling Dionicio/Lymp Hematologic/Lymphatic: Positive for easy bruising; No easy bleeding, enlarged lymph nodes or other Exam Const General: cooperative and comfortable Nutritional Appearance: average body habitus and well nourished [facility] Head: normal to inspection Ears: hearing grossly normal bilaterally Nose: external nose normal Face and sinus: normal facial exam Mouth: oral mucosae normal Throat: posterior oropharynx normal Eyes General: appearance normal, both eyes and all related structures Neck Neck: normal visual inspection Chest Chest palpation & inspection: normal inspection of the chest and normal palpation of entire chest wall Resp Effort & Inspection: normal respiratory effort Auscultation: Bilateral: Clear to Auscultation Cardio Palpation: normal PMI Rate: regular rate Rhythm: regular rhythm GI Inspection: normal to inspection Auscultation: normal bowel sounds Percussion: normal to percussion Palpation: no hepatosplenomegaly Skin General: no rashes or lesions noted Neuro General: patient alert Extrem General: normal to inspection Psych Affect: normal affect Quality Reporting Tobacco Screening ([facility] 138) Smoking Status: Never smoker Assessment and Plan Assessment and Plan (1) Burning chest pain: Status: Acute Plan - Dr. Zamora Friend, DO: He has a history of gastroesophageal reflux disease. Degenerative diagnosis for the burning in the chest could be erosive esophagitis, eosinophilic esophagitis, nonerosive reflux esophagitis. We will perform an upper endoscopy which is upper GI tract. Also the diagnosis would be hiatal hernia. She was explained alternatives, risk, benefits, listing bleeding, infection, sepsis, perforation, need for emergent surgery . She will have an ASA of 1. I have re-examined the patient. There are no clinical changes since date of exam.
[2021-07-19] MEDS: Lactated Ringers 1,000 ML 15 ML IV (10:59)
--- NOTE | 2021-07-19 11:45 | EGD_PTH ---
PATIENT: RENEA MANN LOC: [facility] U#:[id number] AGE/SX: 70/F ROOM: RE07/19/[address]: Dr. Noah Roman DO : 1950 BED: DIS: 07/19/2021 SPEC #: [id number] RECD: 07/19/21 15:00 STATUS: SAGRARIO GIBSON #: [id number] CRISTHIAN: 07/19/21 11:[address]: Noah Roman DEPT: SURGICAL PATHOLOGY RECD BY: Ramandeep Mcdonald ENTERED: 07/20/21 08:43 SP TYPE: EGD BIOPSY OT DR: Dr. Carson Pierce DO Tissues: Esophagus, NOS Procedures: Special Stain Group II Surgery Specimen Level IV Alcian Blue/PAS (control) HEADER [place]PER[place] [place] and dilatation PRE-OP DIAGNOSIS: Burning chest pain TISSUE SUBMITTED: Distal esophagus biopsy MICROSCOPIC DIAGNOSIS Distal esophagus, biopsy: Gastroesophageal junctional mucosa with chronic inflammation. No evidence of goblet cell metaplasia. AM:magali 07/21/2021 COMMENT Alcian blue/PAS stain with matched control supports the above diagnosis. MICROSCOPIC DESCRIPTION Slides are reviewed. GROSS DESCRIPTION Received in fixative is one container labeled with the patient's name and designated distal esophagus. The specimen consists of multiple irregular fragments of light juárez soft tissue that in aggregate measure 1 x 0.3 x 0.1 cm. The specimen is totally submitted in one cassette. / SJ:magali 07/20/2021 TC:3 CPT: 19416, 02220
--- NOTE | 2021-07-19 12:09 | OP.EGD_ITS ---
Patient Name: Venessa Koehler Procedure Date: 07/19/2021 11:39 AM Date of : 1950 Age: 70 Procedure: Upper GI endoscopy Indications: Failure to respond to medical treatment Providers: Noah Romna DO Medicines: See the Anesthesia note for documentation of the administered medications Patient Profile: This is a 70 year old female. Refer to note in patient chart for documentation of history and physical. Patient has symptoms of chronic chest pain. Complications: No immediate complications. Procedure: Pre-Anesthesia Assessment: - Prior to the procedure, a History and Physical was performed, and patient medications and allergies were reviewed. The risks and benefits of the procedure and the sedation options and risks were discussed with the patient. All questions were answered and informed consent was obtained. Patient identification and proposed procedure were verified by the physician. Mental Status Examination: alert and oriented. Airway Examination: normal oropharyngeal airway and neck mobility. Respiratory Examination: clear to auscultation. CV Examination: normal. Prophylactic Antibiotics: The patient does not require prophylactic antibiotics. Prior Anticoagulants: The patient has taken no previous anticoagulant or antiplatelet agents. After reviewing the risks and benefits, the patient was deemed in satisfactory condition to undergo the procedure. The anesthesia plan was to use moderate sedation / analgesia (conscious sedation). Immediately prior to administration of medications, the patient was re-assessed for adequacy to receive sedatives. The heart rate, respiratory rate, oxygen saturations, blood pressure, adequacy of pulmonary ventilation, and response to care were monitored throughout the procedure. The physical status of the patient was re-assessed after the procedure. After obtaining informed consent, the endoscope was passed under direct vision. Throughout the procedure, the patient's blood pressure, pulse, and oxygen saturations were monitored continuously. The gastroscope was introduced through the mouth, and advanced to the second part of duodenum. The upper GI endoscopy was accomplished without difficulty. The patient tolerated the procedure well. Moderate Sedation: Moderate (conscious) sedation was administered by the endoscopy nurse and supervised by the endoscopist. The following parameters were monitored: oxygen saturation, heart rate, blood pressure, and response to care. Total physician intraservice time was 15 minutes. Scope In: 11:55:35 AM Scope Out: 12:02:18 PM Total Procedure Duration Time 0 hours 6 minutes 43 seconds Findings: LA Grade B (one or more mucosal breaks greater than 5 mm, not extending between the tops of two mucosal folds) esophagitis with no bleeding was found 38 to 40 cm from the incisors. Biopsies were taken with a cold forceps for histology. Verification of patient identification for the specimen was done. Estimated blood loss was minimal. A moderate Schatzki ring was found in the lower third of the esophagus. The dilation site was examined and showed moderate improvement in luminal narrowing. Estimated blood loss was minimal. The entire examined stomach was normal. The second portion of the duodenum was normal. Abnormal motility was noted in the middle third of the esophagus. There is spasticity of the esophageal body. The distal esophagus/lower esophageal sphincter is open. Impression: - LA Grade B reflux esophagitis. Biopsied. - Moderate Schatzki ring. - Normal stomach. - Normal second portion of the duodenum. Recommendation: - Discharge patient to home. - Resume previous diet. - Continue present medications. - Await pathology results. - Use Protonix (pantoprazole) 20 mg PO BID for 8 weeks. Procedure Code(s): --- Professional --- 90175, Esophagogastroduodenoscopy, flexible, transoral; with biopsy, single or multiple 14888, 59, Moderate sedation services provided by the same physician or other qualified health healthcare applications analyst performing the diagnostic or therapeutic service that the sedation supports, requiring the presence of an independent trained observer to assist in the monitoring of the patient's level of consciousness and physiological status; initial 15 minutes of intraservice time, patient age 5 years or older CPT copyright 2017 [employer]. All rights reserved. The codes documented in this report are preliminary and upon marketing professor review may be revised to meet current compliance requirements. Noah Roman DO 07/19/2021 12:09:06 PM This report has been signed electronically. Number of Addenda: 1 Note Initiated On: 07/19/2021 11:39 AM Addendum Number: 1 Addendum Date: 01/17/2022 6:15:46 AM MAC was used as sedation for this procedure. Noah Roman DO 01/17/2022 6:15:50 AM This report has been signed electronically.
[2021-07-19 12:10] VITALS: BP 102/54; BP 158/81; PULSE 55; RESP 16; TEMP 36.2; O2SAT 99
--- NOTE | 2021-07-19 12:10 | OP.CCLET_ITS ---
01/17/2022 Carson Pierce [address] [facility] [place] [address] Re : Upper GI endoscopy procedure for [facility] Dear Dr. Pierce This procedure was performed on Monday, July 19, 2021. My impressions and recommendations are as follows: Impressions : - LA Grade B reflux esophagitis. Biopsied. - Moderate Schatzki ring. - Normal stomach. - Normal second portion of the duodenum. Recommendations : - Discharge patient to home. - Resume previous diet. - Continue present medications. - Await pathology results. - Use Protonix (pantoprazole) 20 mg PO BID for 8 weeks. My findings are described in the full procedure note, which is enclosed. If I can be of further assistance, please feel free to contact me at . Sincerely, Noah Friend, 07/19/2021 12:09:06 PM This report has been signed electronically.
[2021-07-19 12:15] VITALS: BP 108/70; BP 158/81; PULSE 55; RESP 16; O2SAT 99
[2021-07-19 12:20] VITALS: BP 119/74; BP 158/81; PULSE 58; RESP 16; O2SAT 99
[2021-07-19 12:25] VITALS: BP 126/67; BP 158/81; PULSE 56; RESP 16; TEMP 36.4; O2SAT 100
[2021-07-19 12:51] VITALS: BP 158/81
== END 2021-07-19 23:59 | disposition home or self-care (01) ==
LOC: EN 10:31 → AC 10:33
PROVIDERS: PCP Family Medicine; Referring Provider Family Medicine; Visit Provider Internal Medicine Gastroenterology
PROC: 0DJ08ZZ Inspection of Upper Intestinal Tract, Via Natural or Artificial Opening Endoscopic (ICD-10-PCS; CPT 43235; principal; 2021-07-19 11:40)
DX: K21.00 Gastro-esophageal reflux disease with esophagitis, without bleeding (principal); J44.9 Chronic obstructive pulmonary disease, unspecified; K22.2 Esophageal obstruction; K58.9 Irritable bowel syndrome, unspecified; Z20.822 Contact with and (suspected) exposure to COVID-19; I49.3 Ventricular premature depolarization; I10 Essential (primary) hypertension; E78.5 Hyperlipidemia, unspecified; G47.33 Obstructive sleep apnea (adult) (pediatric); Z78.0 Asymptomatic menopausal state; Z79.899 Other long term (current) drug therapy
CPT/HCPCS: 43239; 87426; 88305; 88313; J7120; C1769

== ENCOUNTER → 2022-03-14 | Outpatient (CLI) | payer SELFPAY, OTHER ==
--- NOTE | 2022-03-14 12:26 | BI_ITS ---
MAMMOGRAPHY - BILATERAL SCREENING REASON FOR EXAM: Female, 71 years old. Routine annual screening examination. PERTINENT HISTORY: Sister with breast cancer. Aunt with breast cancer. TECHNIQUE: Digital bilateral breast olya (3D mammographic acquisition) in the CC and MLO projections. 2-D mediolateral oblique (MLO) and craniocaudad (CC) views of both breasts were obtained. CAD: Full Field Digital Mammography with Computer Added Detection was performed. COMPARISON: Mammogram from 12/19/2015, 05/13/2014. FINDINGS: Breast Composition: The breasts are almost entirely fatty. There are no dominant masses or suspicious calcifications. No other significant abnormalities are identified. There has been no significant change since the prior study. BI/SCRN MAMM (CAD)W/OLYA BILAT IMPRESSION: Stable bilateral screening mammogram. Yearly follow-up mammogram recommended. (A) ASSESSMENT CATEGORY: BIRADS Category 1: Negative. A letter regarding these results will be sent to the patient by the facility within 30 days. Approximately 10% of breast cancers are not detected by mammography. A normal mammogram should not delay biopsy of a clinically suspicious abnormality. Electronically Signed: Nicanor Cesar, at 16:00 EST ,
== END | disposition home or self-care (01) ==
PROVIDERS: PCP Family Medicine; Visit Provider Family Medicine
DX: Z12.31 Encounter for screening mammogram for malignant neoplasm of breast (principal); Z80.3 Family history of malignant neoplasm of breast
CPT/HCPCS: 77063; 77067

== ENCOUNTER 2022-07-02 14:43 | Emergency (ER) | payer OTHER, SELFPAY ==
[2022-07-02 14:43] VITALS: BP 173/91; PULSE 89; RESP 16; TEMP 36.6; O2SAT 99; BMI 27.2
--- NOTE | 2022-07-02 16:08 | EKG12_ITS ---
Test Reason : GENERAL Blood Pressure : / mmHG Vent. Rate : 056 BPM Atrial Rate : 056 BPM P-R Int : 182 ms QRS Dur : 080 ms QT Int : 434 ms P-R-T Axes : 040 040 052 degrees QTc Int : 418 ms Sinus bradycardia Otherwise normal ECG Confirmed by SANTANA WONG, TREVOR ([id number]), publications editor LUIS KAPOOR ([id number]) on 07/04/2022 9:48:33 AM Referred By: Confirmed By:TREVOR DILLON MD
--- NOTE | 2022-07-02 16:08 | VDLE_ITS ---
Reason For Study: Swelling RIGHT LEFT CFV is compressible, spontaneous, phasic, GSV is normal. competent and demonstrates normal CFV is compressible, spontaneous, phasic, augmentation. competent, and demonstrates normal Procedure augmentation. This is a venous duplex using B-mode, color FV is compressible, spontaneous, phasic, flow and spectral Doppler. competent and demonstrates normal Exam performed portable in ED. augmentation. The exam was diagnostic. POP V is compressible, spontaneous, phasic, A preliminary report was called and/or faxed competent and demonstrates normal to Dr. Garcia. augmentation. T/P Trunk is compressible. PTV is compressible. LT PerV is compressible. Non-vascularized hypoechoic area measuring approximately 3.48cm x 1.10 cm noted in the left proximal calf. VL/Venous Duplex US, Unilateral Interpretation Summary There is no evidence of left lower extremity deep vein thrombosis. Left great s aphenous vein appears patent and compressible segmentally. Left proximal calf 3.48 x 1.1 cm Nonvascul ar partially hypoechoic structure of undetermined etiology. Clinical correlation would be ap propriate. Normal flow patterns right common femoral vein Ordering Physician: Max Garcia Referring Physician: Carson Pierce Performed By: Jose Daniel Lennon RVT
--- NOTE | 2022-07-02 16:13 | RAD_ITS ---
INDICATION: Cough. EXAMINATION/TECHNIQUE: X-RAY - XR Chest 1 View COMPARISON: May 20, 2019 chest x-ray. FINDINGS: LINES/DEVICES: None. LUNGS: No consolidation, edema or effusion. No pneumothorax. MEDIASTINUM AND CARDIOVASCULAR STRUCTURES: Cardiac silhouette not enlarged. Central airways and mediastinal contour are unremarkable. BONES AND SOFT TISSUES: Stable degenerative changes. RAD/Chest 1 View (Portable) IMPRESSION: No acute cardiopulmonary disease. Electronically Signed: Georges Diaz MD at 16:32 EDT ,
--- NOTE | 2022-07-02 16:17 | EDS_ITS ---
HPI History of Present Illness Chief Complaint: Lower Extremity Injury Informant: patient Narrative Narrative: Patient was referred by her primary for some left leg swelling that started on Saturday. She does not think she injured it. She did get up and down out of a chair many times that day but did not think that that really hurt it. She did have a DVT about 40 years ago but not sure which side. She is not on any anticoagulation now. Patient denies any other symptoms. But on specific review of symptoms I do find out that she has had just a slight cough occasionally over the last couple days. She is not short of breath. Its not pain. She just states she has a catching or feeling in her chest. No sputum production or hemoptysis. No pleuritic pain. No lightheadedness. No fevers or chills. PFSH [facility] Medical History Anxiety Arthritis Back pain Burning chest pain Cardiology follow-up encounter Diastolic dysfunction Difficulty swallowing Easy bruising Esophageal spasm Essential hypertension Excessive bleeding Gastric reflux GERD (gastroesophageal reflux disease) High cholesterol History of echocardiogram History of hiatal hernia History of irregular heartbeat History of stress test Hyperlipemia Injury of back Injury of head and neck Leg cramps Non-smoker Post-menopausal Premature ventricular contraction Sleep apnea Wears dentures Wears glasses Home Medications ascorbic acid (vitamin C) 500 mg tablet 1,000 mg PO DAILY 03/05/18 [History Last Taken Unknown] amlodipine 5 mg tablet 5 mg PO DAILY PRN BP 03/08/21 [History Last Taken 07/19/21 06:30] lactobacillus combination no.9 4 billion cell capsule (Adult 50 Plus Probiotic) 4,000 mmu cells PO DAILY 03/08/21 [History Last Taken Unknown] magnesium 250 mg tablet 250 mg PO DAILY 03/08/21 [History Last Taken Unknown] omega-3 fatty acids 1,250 mg PO DAILY 07/18/21 [History Last Taken Unknown] vitamin B complex 1 cap PO DAILY 07/18/21 [History Last Taken Unknown] ezetimibe 10 mg tablet (Zetia) 10 mg PO DAILY 03/22/22 [History Last Taken Unknown] famotidine 20 mg tablet 20 mg PO DAILY PRN 03/22/22 [History Last Taken Unknown] Allergy/AdvReac Type Severity Reaction Status Date / Time atorvastatin [From Lipitor] AdvReac Severe Myalgias Verified 07/02/22 14:46 pravastatin AdvReac Severe Myalgias Verified 07/02/22 14:46 epinephrine AdvReac Other Verified 07/02/22 14:46 Family History Father CAD (coronary artery disease) Myocardial infarction, Onset Age: 50 Mother TIA (transient ischemic attack) CVA (cerebral vascular accident) Hypertension Atrial fibrillation Surgical History History of cardiac catheterization History of total hysterectomy Social History Smoking Status: Never smoker alcohol intake: never substance use type: does not use ROS ROS ED Constitutional Constitutional ED: Denies chills, fever(s) or subjective Eyes Eyes: Denies blurry vision, change in vision or diplopia ENT ENT ED: Denies rhinorrhea or sore throat Cardiovascular Cardiovascular: Reports other Details: See history of present illness peer ; Denies chest pain, palpitations, paroxysmal nocturnal dyspnea or racing heartbeat Respiratory/Chest Respiratory/Chest: Reports cough; Denies dyspnea, dyspnea on exertion, paroxysmal nocturnal dyspnea or sputum Gastrointestinal Gastrointestinal: Denies abdominal pain, nausea or vomiting Genitourinary Genitourinary ED: Denies hematuria Musculoskeletal Musculoskeletal: Reports other Details: Soreness of her left calf. ; Denies arthralgias, back pain or neck pain Integumentary Denies rash Neurologic Neurologic: Denies headache(s), paresthesias or weakness Endocrine Endocrinology: Denies polydipsia or polyuria Hematologic/Lymphatic Hematologic/Lymphatic: Denies easy bleeding, easy bruising or lymphadenopathy Allergic/Immunologic Allergic/Immunologic ED: Denies urticaria EXAM Physical Exam Narrative Exam Narrative: Patient is awake alert no acute distress sitting comfortably in bed. HEENT shows no sign of trauma. Mucous membranes are moist. No sinus tenderness. Neck shows no JVD or stridor. Lungs are completely clear bilaterally. No pain with a deep breath. She is not coughing. Her saturations are normal at 99% on room air showing no hypoxia. Heart is regular. I hear no murmur gallop or rub. Peripheral pulses are equal and normal. Abdomen is soft completely nontender shows no CVA or suprapubic tenderness Extremities does show some very mild swelling of her left calf. It does not e xtend proximal to the knee clinically. Although there is some tenderness I do not feel a cord. She does have some varicosities but these are evidently not new. No sign of arterial insufficiency. However, this is concerning for early DVT. Neurologically she is awake alert and appropriate. Const Vital Signs: 07/02/22 14:43 07/02/22 19:01 Temperature 97.8 F Temperature Source Temporal Pulse Rate 89 58 L Respiratory Rate 16 13 Blood Pressure 173/91 H 174/77 H Blood Pressure Mean 118 109 Pulse Ox 99 98 Oxygen Delivery Method Room Air Room Air MDM MDM MDM Narrative Medical decision making narrative: Patient's CBC was normal including platelets. Electrolytes were normal other than mildly high BUN to creatinine ratio. Troponin was negative. I talk with the locate technician. There is no indication of DVT. But he did say it looks like there may be some muscular injury with some fluid in the area. Patient's D-dimer was elevated. Considering she had leg pain and swelling, history of DVT, and some nonspecific chest symptoms and cough we did do a CTA of her chest which happily was negative. Patient now states that her getting up and down on a chair was actually standing on a chair to do work on windows. Because she has sore knees she was bending and impacting the left leg more than the right. I think this likely caused her injury. But ice rest and gentle range of motion should get this to resolve. If it gets worse or more swelling she should come in because it is still possible to develop a DVT after this injury Lab Data Labs: Laboratory Results - last 24 hr 07/02/22 07/02/22 07/02/22 16:20 16:20 17:04 WBC 6.4 RBC 4.48 Hgb 13.2 Hct 39.1 MCV 87.3 MCH 29.5 MCHC 33.8 RDW Std Deviation 40.5 RDW Coeff of Meir 12.7 Plt Count 337 MPV 8.4 Immature Gran % (Auto) 0.300 Neut % (Auto) 71.3 H Lymph % (Auto) 20.1 Brewster % (Auto) 6.4 Eos % (Auto) 1.3 Baso % (Auto) 0.6 Absolute Neuts (auto) 4.6 Absolute Lymphs (auto) 1.28 Nucleated RBC % 0 D-Dimer Quant (PE/DVT) 0.72 H* Sodium 141 Potassium 4.0 Chloride 107 Carbon Dioxide 27.0 Anion Gap 7 BUN 22 H Creatinine 0.73 Estim Creat Clear Calc 49.00 Est GFR (MDRD) Af Amer 101 Est GFR (MDRD) Non-Af 83 BUN/Creatinine Ratio 30.0 H Glucose 113 H Calcium 9.4 Troponin I High Sens 5 Radiography Diagnostic Testing: Clinical Impression(s) from Imaging Studies Chest X-Ray 07/02/22 16:13 IMPRESSION: No acute cardiopulmonary disease. Electronically Signed: Georges Diaz MD at 16:32 EDT , Chest CTA 07/02/22 18:45 IMPRESSION: No pulmonary embolism or aortic dissection. Electronically Signed: Georges Diaz MD at 19:22 EDT , EKG Initial EKG: Comments: My independent interpretation of EKG done for nonspecific chest symptoms shows sinus rhythm with bradycardic rate at 56. No ectopy. No acute ST elevation or depression. OH interval, QRS duration and QTc are normal. Discharge Plan Triage Chief Complaint: Lower Extremity Injury ED Provider: Max Garcia Dx/Rx/DC Orders Clinical Impression: Pain of left calf, Swelling of left lower extremity Instructions: ED Muscle Strain, Extremity Prescriptions: No Action ascorbic acid (vitamin C) 500 mg tablet 1,000 mg PO DAILY magnesium 250 mg tablet 250 mg PO DAILY Adult 50 Plus Probiotic 4 billion cell capsule 4,000 mmu cells PO DAILY Rx Instructions: administer with a meal famotidine 20 mg tablet 20 mg PO DAILY PRN ezetimibe [Zetia] 10 mg tablet 10 mg PO DAILY amlodipine 5 mg tablet 5 mg PO DAILY PRN (Reason: BP) Rx Instructions: 5 mg PO daily, but if SP 150 or greater, take 10 mg daily; vitamin B complex [B Complex] Capsule 1 cap PO DAILY Fish Oil Capsule 1,250 mg PO DAILY Primary Care Provider: Carson Pierce Referrals: Carson Pierce, DO [Primary Care Provider] - 1 Week if not improving Disposition Disposition: Home, Self Care
[2022-07-02 16:26] LABS: Absolute Lymphocyte Count 1.28 X10^3/uL (0.83-4.51); Absolute Neutrophil Count 4.6 X10^3/uL (2.0-7.7); Basophil# 0.04 X10^3/uL; Basophil% 0.6 % (0-1); Eosinophil# 0.08 X10^3/uL; Eosinophils% 1.3 % (0-5); Hematocrit 39.1 % (37-47); Hemoglobin 13.2 g/dL (12.0-15.0); Lymphocyte # 1.28 X10^3/ul (0.83-4.51); Lymphocyte % 20.1 % (19-41); Mean Corp Hgb Conc 33.8 g/dL (32-36); Mean Corpuscular Hgb 29.5 pg (27.0-32.0); Mean Corpuscular Volume 87.3 fL (81-99); Mean Platelet Vol. 8.4 fl (6.2-12.0); Monocyte# 0.41 X10^3/uL; Monocyte% 6.4 % (0-10); NRBC Flagged by Analyzer 0 % (0-5); Neutrophil # 4.55 X10^3/uL (2.7-7.7); Neutrophil % 71.3 % (47-70); Platelet Count 337 K/mm3 (150-450); RBC Distribution Width CV 12.7 % (11.6-14.6); RBC Distribution Width SD 40.5 fl (35.1-43.9); Red Blood Count 4.48 M/mm3 (4.2-5.4); White Blood Count 6.4 K/mm3 (4.4-11.0)
[2022-07-02 16:45] LABS: Anion Gap 7 (5-15); BUN 22 mg/dL (7-18); Calcium,Total 9.4 mg/dL (8.5-10.1); Chloride 107 mmol/L (98-107); Creatinine, Serum 0.73 mg/dL (0.55-1.02); EST Glomerular Filtration Rate 83 mL/min (>60); Est Glom Filt Rate - Afr Amer 101 mL/min (>60); Glucose 113 mg/dL (74-106); Sodium Level 141 mmol/L (136-145); Troponin-I HS 5 pg/mL (3.0-54.0)
[2022-07-02 17:28] LABS: D-Dimer Quantitative (DVT/PE) 0.72 FEU/ug/m (0.27-0.49)
--- NOTE | 2022-07-02 18:45 | CT_ITS ---
STUDY: CTA CHEST REASON FOR EXAM: Female, 71 years old. Cough. RADIATION DOSAGE (If Supplied By Facility): CTDIvol = ( 7.38 ) mGy, DLP = ( 315.34 ) mGycm TECHNIQUE: The examination was performed with the intravenous administration of IV 100mL Isovue-370. Post-processing of the angiographic images was performed, with multiplanar reformation and 3D reconstruction. Individualized dose optimization techniques were used for this CT. COMPARISON: Chest x-ray July 02, 2022. CTA chest May 20, 2019. FINDINGS: No focal airspace consolidation, pleural effusion or pneumothorax. Normal enhancement of the main pulmonary artery and right and left pulmonary arteries. Normal enhancement of the bilateral peripheral pulmonary arteries. There is no demonstrated pulmonary embolism. Mildly enlarged caliber right main pulmonary artery, stable size, configuration. Normal caliber thoracic aorta. No dissection. Small degree of mural calcification. Normal heart size. No pericardial effusion. No significant coronary artery calcification is present. No mediastinal or hilar adenopathy. No mediastinal hematoma. Trachea and esophagus are unremarkable. Thyroid gland enhances normally. No acute abnormality in the visualized upper abdomen. Degenerative changes without acute osseous injury. CT/CTA Chest W/WO Contrast IMPRESSION: No pulmonary embolism or aortic dissection. Electronically Signed: Georges Diaz MD at 19:22 EDT ,
[2022-07-02 19:01] VITALS: BP 174/77; PULSE 58; RESP 13; O2SAT 98
[2022-07-02 19:40] VITALS: BP 181/87; PULSE 65; RESP 15; O2SAT 98
== END 2022-07-02 19:44 | disposition home or self-care (01) ==
PROVIDERS: Emergency Provider Emergency Medicine; PCP Family Medicine; Visit Provider Emergency Medicine
DX: M79.662 Pain in left lower leg (principal); E78.00 Pure hypercholesterolemia, unspecified; I10 Essential (primary) hypertension; Z86.718 Personal history of other venous thrombosis and embolism
CPT/HCPCS: 71045; 71275; 80048; 84484; 85025; 85379; 93005; 93971; 99283; Q9967; A4216

== ENCOUNTER → 2023-05-20 | Outpatient (CLI) | payer OTHER, SELFPAY ==
--- OUTSIDE RECORDS SUMMARY | 2023-05-20 07:04 | XMS RPT_ITS | CCD ---
Author Name Unknown Address [address] [place] [address] Organization [facility] Care Team Providers Care Wastewater Technician Name Role Phone CATALINA HAGEN DC Admitting Unavailable CATALINA HAGEN DC Primary Care Unavailable CATALINA HAGEN DC Attending Unavailable DARON GONZALEZ Consulting Unavailable PROVIDER, UNKNOWN Consulting [facility] Ad[facility] Primary Care [facility] Attending Unavailable DARON GONZALEZ Consulting Unavailable DARON GONZALEZ Referring Unavailable PROVIDER, UNKNOWN Consulting Unavailable SEGOVIA, LIAN WONG Admitting Unavailable SEGOVIA, WILL Primary Care Unavailable SEGOVIA, WILL Attending Unavailable DARON GONZALEZ Consulting Unavailable PROVIDER, UNKNOWN Consulting Unavailable Results Test Name Value Interpretation Reference Range Facil ity Encounters Encounter Date Encounter Type Care Provider Facility Start: 11-14-2022 End: 11-14-2022 ambulatory WILL MD SEGOVIA [facility] Start: 02-14-2022 End: 02-14-2022 [facility] Start: 01-29-2022 End: 01-29-2022 ambulatory CATALINA MARQUEZ [facility] Payers Date Payer Category Payer Unknown [id number] Unknown Summary Purpose Family History No Family History Records FoundNo Family History Records Found Advance Directives No Advanced Directives Records FoundNo Advanced Directives Records Found Additional Source Comments INFORMATION SOURCE (unrecogn ized section and content) DATE CREATED AUTHOR AUTHOR'S RONDA ATION 11/23/2022 [facility] FOR RECORDS PERTAINING TO PATIENTS WHO ARE OR HAVE BEEN ENROLLED IN A CHEMICAL DEPENDENCY/SUBSTANCEABUSE PROGRAM, SOME INFORMATION MAY BE OMITTED. This clinical summary was aggregated from multiple sources. Caution should be exercised in using it in the provision of clinical care. This summary normalizes information from multiple sources, and as a consequence, information in this document may materially change the coding, format and clinical context of patient data. In addition, data may be omitted in some cases. CLINICAL DECISIONS SHOULD BE BASED ON THE PRIMARY CLINICAL RECORDS. [facility] [facility]. provides no warranty or guarantee of the accuracy or completeness of information in this document.
[2023-05-20 07:58] LABS: Hematocrit 41.3 % (37-47); Hemoglobin 13.5 g/dL (12.0-15.0); Mean Corp Hgb Conc 32.7 g/dL (32-36); Mean Corpuscular Hgb 28.8 pg (27.0-32.0); Mean Corpuscular Volume 88.2 fL (81-99); Mean Platelet Vol. 9.2 fl (6.2-12.0); Platelet Count 395 K/mm3 (150-450); RBC Distribution Width CV 12.9 % (11.6-14.6); RBC Distribution Width SD 41.7 fl (35.1-43.9); Red Blood Count 4.68 M/mm3 (4.2-5.4); White Blood Count 6.3 K/mm3 (4.4-11.0)
--- NOTE | 2023-05-20 08:00 | RAD_ITS ---
STUDY: X-RAY - ESOPHAGUS (BARIUM SWALLOW) WITH FLUOROSCOPY REASON FOR EXAM: Female, 72 years old. DYSPHAGIA TECHNIQUE: 16 view(s) of the esophagus were obtained following swallowing of barium. FLUOROSCOPY TIME (if supplied): (24 seconds) minutes/seconds. 12.27 mGy COMPARISON: None. FINDINGS: There is no demonstrated esophageal foreign body. There is no demonstrated stricture or mucosal abnormality. Normal gastroesophageal junction, without a demonstrated hiatal hernia. The patient ingested a 12 mm tablet of barium without any issues. Normal visualized aortic arch and descending thoracic aorta. Normal visualized pulmonary parenchyma. Normal visualized osseous structures of the thorax. RAD/Esophagus Dual Contrast IMPRESSION: Normal plain film x-ray examination (barium swallow) of the esophagus. Electronically Signed: Arvin Norris MD at 8:39 EST ,
[2023-05-20 09:01] LABS: AST(SGOT) 16 U/L (15-37); Alanine Aminotransfer ALT/SGPT 22 U/L (13-56); Albumin, Serum 3.7 g/dL (3.2-5.0); Alkaline Phosphatase 95 U/L (45-117); Bilirubin, Direct 0.13 mg/dL (0.00-0.30); Cholesterol 231 mg/dL (200); Globulin 4.1 g/dL (2.2-4.2); High Density Lipoprotein 96 mg/dL; Protein, Total 7.8 g/dL (6.4-8.2); Triglycerides 77 mg/dL; Very Low Density Lipoprotein 15 mg/dL (5-40)
[2023-05-20 09:03] LABS: Anion Gap 3 (5-15); BUN 14 mg/dL (7-18); BUN/Creat Ratio 19.6 RATIO (10-20); Calcium,Total 9.9 mg/dL (8.5-10.1); Chloride 110 mmol/L (98-107); Creatinine, Serum 0.71 mg/dL (0.55-1.02); EST Glomerular Filtration Rate 86 mL/min (>60); Est Glom Filt Rate - Afr Amer 104 mL/min (>60); Glucose 102 mg/dL (74-106); Magnesium 2.4 mg/dL (1.6-2.6); Potassium 3.9 mmol/L (3.5-5.1); Sodium Level 141 mmol/L (136-145); Thyroid Stim Hormone (TSH) 2.71 uIU/mL (0.358-3.74)
== END | disposition home or self-care (01) ==
LOC: RAD 07:02
PROVIDERS: Nurse Practitioner Family; PCP Family Medicine; Referring Provider Internal Medicine Gastroenterology; Visit Provider Internal Medicine Gastroenterology
DX: R13.10 Dysphagia, unspecified (principal); E78.00 Pure hypercholesterolemia, unspecified; R00.2 Palpitations; I49.3 Ventricular premature depolarization; R00.0 Tachycardia, unspecified; R07.89 Other chest pain
CPT/HCPCS: 36415; 74221; 80048; 80061; 80076; 83735; 84443; 85027

== ENCOUNTER 2023-10-11 09:58 | Emergency (ER) | payer OTHER, SELFPAY ==
[2023-10-11 09:59] VITALS: BP 204/66; PULSE 68; RESP 15; TEMP 36.4; O2SAT 98; BMI 26.6
--- NOTE | 2023-10-11 10:06 | EKG12_ITS ---
Test Reason : CP Blood Pressure : / mmHG Vent. Rate : 068 BPM Atrial Rate : 068 BPM P-R Int : 182 ms QRS Dur : 082 ms QT Int : 416 ms P-R-T Axes : 049 050 054 degrees QTc Int : 442 ms Sinus rhythm with frequent Premature ventricular complexes Otherwise normal ECG Confirmed by Milind So ([id number]), technical writer and editor LUIS KAPOOR ([id number]) on 10/15/2023 5:57:09 AM Referred By: Confirmed By:Milind So
--- NOTE | 2023-10-11 10:11 | ED.VIS.CHEST ---
HPI History of Present Illness Chief Complaint: Chest Pain Informant: patient Onset/Context/Timing Onset: Days Activity at onset: gradual Timing: Intermittent Quality: Positive for Pain Location: Left Parasternal Current Severity: Mild Maximum Severity: Mild Worsened By: Nothing Relieved By: - (Patient believes it may be related to the heat. Better when she is in the air conditioning. It is intermittent. It is not specifically associated with exertion.) Associated Symptoms: Negative for Nausea, Vomiting, Diaphoresis, Dyspnea, Cough, Fever, Lightheadedness, Acid Reflux or Palpitations Narrative Narrative: 72-year-old female history of hypertension, reflux and borderline diabetes. Never been a smoker. Said for last week she has had intermittent left-sided chest discomfort. Denies any fall injury or trauma. No history of PE. Stop pleuritic. She is not short of breath. Is not associated with exertion. She thought it may be secondary to the recent heat wave. Says she feels much better and air conditioning. She has been kind of tired all week. Said before that he weighs started a week or 2 ago she was not having any symptoms. Denies any leg pain or swelling. No hemoptysis. She had a negative stress test 3 years ago and the only heart cath she ever had was 20 years ago and was negative. Prior Similar Symptoms: No Recent Illness/Hospitalization: No CVD Risk Factors: Negative for Hypertension PE Risk Factors: Negative for Recent Travel/Surgery, Recent Immobilization, Prior DVT or PE, Cancer or OCP + Smoking + >/=35 TAD Risk Factors: Negative for Marfan's Syndrome [facility] Medical History Esophageal spasm Wears dentures Wears glasses Post-menopausal Anxiety Arthritis High cholesterol Excessive bleeding Easy bruising Injury of back Back pain Injury of head and neck Difficulty swallowing History of hiatal hernia Gastric reflux Non-smoker Sleep apnea Leg cramps History of echocardiogram History of stress test History of irregular heartbeat Cardiology follow-up encounter Burning chest pain GERD (gastroesophageal reflux disease) Diastolic dysfunction Hyperlipemia Essential hypertension Premature ventricular contraction Home Medications ?Medication ?Instructions ?Recorded ?Last Taken ?Type ascorbic acid (vitamin C) 500 mg 1,000 mg PO DAILY 03/05/18 Unknown History tablet lactobacillus combination no.9 4 4,000 mmu cells PO DAILY 03/08/21 Unknown History billion cell capsule (Adult 50 Plus Probiotic) magnesium 250 mg tablet 250 mg PO DAILY 03/08/21 Unknown History omega-3 fatty acids 1,250 mg PO DAILY 07/18/21 Unknown History vitamin B complex 1 cap PO DAILY 07/18/21 Unknown History amlodipine 2.5 mg tablet 2.5 mg PO DAILY BP #90 tabs 06/03/23 Unknown Rx pantoprazole 40 mg tablet,delayed 40 mg PO DAILY 06/19/23 Unknown History release Allergy/AdvReac Type Severity Reaction Status Date / Time atorvastatin (From Lipitor) AdvReac Severe Myalgias Verified 10/11/23 10:01 pravastatin AdvReac Severe Myalgias Verified 10/11/23 10:01 epinephrine AdvReac Other Verified 10/11/23 10:01 Family History Father CAD (coronary artery disease) Myocardial infarction, Onset Age: 50 Mother TIA (transient ischemic attack) CVA (cerebral vascular accident) Hypertension Atrial fibrillation Surgical History History of cardiac catheterization History of total hysterectomy Social History Smoking Status: Never smoker alcohol intake: never substance use type: does not use ROS ROS ED ROS Narrative Nonexertional left-sided chest discomfort. Review of Systems ROS Unobtainable: Denies due to encephalopathy Constitutional Constitutional ED: Denies chills or fever(s) Eyes Eyes: Reports none ENT ENT ED: Denies ear pain or rhinorrhea Cardiovascular Cardiovascular: Reports as per HPI and chest pain; Denies palpitations or racing heartbeat Respiratory/Chest Respiratory/Chest: Denies cough or dyspnea Gastrointestinal Gastrointestinal: Denies abdominal pain, constipation, diarrhea, melena, nausea or vomiting Genitourinary Genitourinary ED: Denies dysuria or hematuria Musculoskeletal Musculoskeletal: Denies arthralgias or back pain Integumentary Denies abscess or Abrasions Neurologic Neurologic: Denies headache(s) Psychiatric Psychiatric: Denies anxiety Endocrine Endocrinology: Denies cold intolerance Hematologic/Lymphatic Hematologic/Lymphatic: Denies easy bleeding, easy bruising or lymphadenopathy Allergic/Immunologic Allergic/Immunologic ED: Denies mouth swelling, tongue swelling or urticaria EXAM Physical Exam Narrative Exam Narrative: 72-year-old female vital signs stable afebrile. Initial blood pressure is elevated 204 over 66. Pulse ox 90% on room air no signs of hypoxia. H EENT exam unremarkable. Neck nontender no JVD. Lungs clear to auscultation bilateral. Heart regular rate and rhythm rate about 68 no murmur. Chest wall she does have reproducible left parasternal chest wall discomfort in the specific area in her left upper medial chest. There is no ecchymosis or bruising. No redness or warmth. No history of trauma or signs of trauma. Abdomen soft nontender. Moving all 4 extremities. Calves are nontender without edema or cords. Equal symmetrical radial pulses. Back nontender. Neurologically she is awake and alert with no focal motor deficits. Answering questions following commands. present at bedside. Const Vital Signs: 10/11/23 09:59 10/11/23 10:20 Temperature 97.6 F L Temperature Source Temporal Pulse Rate 68 Respiratory Rate 15 Blood Pressure 204/66 H Blood Pressure Mean 112 Pulse Ox 98 Oxygen Delivery Method Room Air Room Air Positive well developed; Negative for well nourished, obese, cachectic, contractures or unkempt General Appearance ED: well developed and NAD; Negative for unkempt, cachectic, contractures or pallor Nutritional Appearance: Negative for cachectic or obese HEENT Reports moist mucous membranes normocephalic and atraumatic; Negative for trauma or tenderness Eyes PERRL and EOMs intact bilaterally General Eye ED: Negative for pale conjunctiva or scleral icterus Neck no lymphadenopathy, supple and no JVD General: Negative for tenderness Chest Wall inspection of chest normal; Negative for palpation of chest normal Chest Narrative: Reproducible chest wall pain left upper medial chest. Normal inspection Chest: Negative for tenderness or other Resp normal respiratory effort and clear to auscultation bilaterally Effort and Inspection: Negative for respiratory distress Auscultation: Negative for rales, rhonchi or wheezes Cardio regular rate, regular rhythm, S1 normal heart sound, S2 normal heart sound and no murmurs Rate: Negative for bradycardia or tachycardic Rhythm: Negative for abnormal rhythm Peripheral Pulses: pulses 2+ throughout GI normal to inspection, nondistended, normoactive bowel sounds, soft to palpation, non-tender, non-distended and no masses Auscultation: Negative for hyperactive bowel sounds Palpation: Negative for splenomegaly, mass or other Back/Spine no CVA tenderness and no thoracic nor lumbar tenderness General Back: Negative for CVA tenderness or other Cervical Spine: Negative for cervical spine tenderness Extremity normal to inspection General Extremety ED: Negative for edema, pulses abnormal or tenderness General Extremity: Negative for edema or pulses abnormal Neuro oriented x3 and CN's II-XII intact bilaterally Sensorium / Orientation: awake, alert, oriented to person, oriented to place and oriented to time; Negative for confused, lethargic or stuporous Motor Exam: strength 5/5 throughout; Negative for general weakness or strength abnormal Psych mental status grossly normal Appearance: Negative for unkempt Attitude: No agitated Mood & Affect: Negative for depressed, anxious or tearful Skin no rashes or lesions noted and no wounds General Skin Exam: Negative for jaundice or pallor Rashes: No rashes noted Trauma: Negative for abrasion or laceration Heart Score History: Slightly/Non-Suspicious ECG: Normal Age: >/= 65 years Risk Factors: 1 or 2 Risk Factors Troponin: </= Normal Limit Score: 3 MDM MDM MDM Narrative Medical decision making narrative: 72-year-old with atypical nonexertional chest pain. Non-smoker. Borderline diabetic. Negative stress test about 3 years ago at this facility. Benign exam except there is some mild reproducible left upper chest wall pain. Cardiac workup will be done. Repeat exam patient is doing well at 10:58 PM. She and I and her went over all of her test. I do not have a strong suspicion this is cardiac actually nonexertional. Seems to be heat related. Yesterday she worked in her garden and ran a [employer] for 30 minutes and then give her any problem at all. Both she and her are comfortable being discharged home she really does not want to be admitted for stress test and she will follow-up with her primary care physician. History & Record Review Discussion w/independent historian: Patient and Family Additional record(s) reviewed:: Prior inpatient record, Prior outpatient record, Prior ED visit and Prior labs Lab Data Attestation: I reviewed the patient's lab results. Lab results narrative: CBC normal. White count 7. H&H 13 and 41. Platelets 344. Electrolytes unremarkable gap 7. Normal BUN and creatinine is 0.7. Glucose 110. Troponin normal at 7. Labs: Laboratory Results - last 24 hr 10/11/23 10:20 WBC 7.5 RBC 4.69 Hgb 13.5 Hct 41.2 MCV 87.8 MCH 28.8 MCHC 32.8 RDW Std Deviation 43.2 RDW Coeff of Meir 13.4 Plt Count 344 MPV 9.1 Immature Gran % (Auto) 0.400 Neut % (Auto) 72.5 H Lymph % (Auto) 20.5 Bracken % (Auto) 5.5 Eos % (Auto) 0.4 Baso % (Auto) 0.7 Absolute Neuts (auto) 5.5 Absolute Lymphs (auto) 1.54 Nucleated RBC % 0 Sodium 140 Potassium 3.8 Chloride 108 H Carbon Dioxide 25.0 Anion Gap 7 BUN 18 Creatinine 0.70 Estim Creat Clear Calc 66.71 Est GFR (MDRD) Af Amer 106 Est GFR (MDRD) Non-Af 88 BUN/Creatinine Ratio 25.8 H Glucose 110 H Calcium 10.0 Troponin I High Sens 7 Radiography Chest X-Ray - ED: 1 View, Read by ED Physician, Read by Radiologist, Heart, Lungs, Mediastinum, Bony Structures, No Acute Disease and Chronic Changes Diagnostic Testing: Clinical Impression(s) from Imaging Studies Chest X-Ray 10/11/23 10:35 IMPRESSION: Hyperinflation. The lungs are clear. Electronically Signed: Arvin Norris MD at 10:49 EDT , Chest x-ray, portable, single view interpreted both by myself and the radiologist shows no acute abnormality. Normal cardiac silhouette. Normal mediastinum. Normal lung pittman. Rhythm Strip Rhythm Strip: Sinus Rhythm Rate: 68 Ectopy: PVC(s) EKG Initial EKG: Attestation: I personally reviewed and interpreted this EKG as follows: Interpretation: Sinus Rhythm and No Acute Injury Pattern Comments: Normal sinus rhythm with frequent PVCs. No acute signs of KS or ischemia. No inverted T waves or ST elevation or depression. Discharge Plan Triage Chief Complaint: Chest Pain ED Provider: Ethan Herzog Dx/Rx/DC Orders Clinical Impression: Chest pain, Acute chest wall pain, Hx of esophageal reflux Instructions: ED Chest Pain, Uncertain Cause Prescriptions: No Action ascorbic acid (vitamin C) 500 mg tablet 1,000 mg PO DAILY magnesium 250 mg tablet 250 mg PO DAILY Adult 50 Plus Probiotic 4 billion cell capsule 4,000 mmu cells PO DAILY Rx Instructions: administer with a meal amlodipine 2.5 mg tablet 2.5 mg PO DAILY Qty: 90 3RF vitamin B complex [B Complex] Capsule 1 cap PO DAILY Fish Oil Capsule 1,250 mg PO DAILY pantoprazole 40 mg tablet,delayed release (DR/EC) 40 mg PO DAILY Primary Care Provider: Carson Pierce Referrals: Carson Pierce, DO [Primary Care Provider] - 3-5 Days if not improving Activity Restrictions/Additional Instructions: Your blood work, EKG and chest x-ray were all normal today. Follow-up with your doctor if not improving. Return if you are feeling worse. You can use your home remedies for your reflux. You might also want to try Tums. Or [id number] Pepcid. Print Language: Azeri Disposition Disposition: Home, Self Care
[2023-10-11] MEDS: Aspirin 81 MG TAB.CHEW 324 MG PO (10:22)
[2023-10-11 10:24] LABS: Absolute Lymphocyte Count 1.54 X10^3/uL (0.83-4.51); Absolute Neutrophil Count 5.5 X10^3/uL (2.0-7.7); Basophil# 0.05 X10^3/uL; Basophil% 0.7 % (0-1); Eosinophil# 0.03 X10^3/uL; Eosinophils% 0.4 % (0-5); Hematocrit 41.2 % (37-47); Hemoglobin 13.5 g/dL (12.0-15.0); Lymphocyte # 1.54 X10^3/ul (0.83-4.51); Lymphocyte % 20.5 % (19-41); Mean Corp Hgb Conc 32.8 g/dL (32-36); Mean Corpuscular Hgb 28.8 pg (27.0-32.0); Mean Corpuscular Volume 87.8 fL (81-99); Mean Platelet Vol. 9.1 fl (6.2-12.0); Monocyte# 0.41 X10^3/uL; Monocyte% 5.5 % (0-10); NRBC Flagged by Analyzer 0 % (0-5); Neutrophil # 5.45 X10^3/uL (2.7-7.7); Neutrophil % 72.5 % (47-70); Platelet Count 344 K/mm3 (150-450); RBC Distribution Width CV 13.4 % (11.6-14.6); RBC Distribution Width SD 43.2 fl (35.1-43.9); Red Blood Count 4.69 M/mm3 (4.2-5.4); White Blood Count 7.5 K/mm3 (4.4-11.0)
--- NOTE | 2023-10-11 10:35 | RAD_ITS ---
STUDY: X-RAY CHEST REASON FOR EXAM: Female, 72 years old. Chest pain TECHNIQUE: Single AP portable view of the chest. COMPARISON: Comparison is made with prior study of July 02, 2022. FINDINGS: EKG electrodes are seen. Hyperinflation. The lungs are clear. There is no demonstrated pleural abnormality. Normal size heart. Normal mediastinum and tom. Normal visualized pulmonary arteries. Normal visualized aortic arch and descending thoracic aorta. There are diffuse degenerative changes of the visualized thoracic spine. Normal visualized ribs, clavicles, and shoulders. There is no demonstrated abnormality of the visualized soft tissue structures of the upper abdomen. RAD/Chest 1 View (Portable) IMPRESSION: Hyperinflation. The lungs are clear. Electronically Signed: Arvin Norris MD at 10:49 EDT ,
[2023-10-11 10:51] LABS: Anion Gap 7 (5-15); BUN 18 mg/dL (7-18); BUN/Creat Ratio 25.8 RATIO (10-20); Chloride 108 mmol/L (98-107); EST Glomerular Filtration Rate 88 mL/min (>60); Est Glom Filt Rate - Afr Amer 106 mL/min (>60); Estimated Creatinine Clearance 66.71 ml/min; Glucose 110 mg/dL (74-106); Potassium 3.8 mmol/L (3.5-5.1); Sodium Level 140 mmol/L (136-145); Troponin-I HS 7 pg/mL (3.0-54.0)
[2023-10-11 11:03] VITALS: BP 142/75; PULSE 82; RESP 18; TEMP 36.6; O2SAT 98
== END 2023-10-11 11:08 | disposition home or self-care (01) ==
PROVIDERS: Emergency Provider Emergency Medicine; PCP Family Medicine; Visit Provider Emergency Medicine
DX: R07.89 Other chest pain (principal); R73.03 Prediabetes; I10 Essential (primary) hypertension; E78.00 Pure hypercholesterolemia, unspecified; K21.9 Gastro-esophageal reflux disease without esophagitis; Z79.899 Other long term (current) drug therapy
CPT/HCPCS: 71045; 80048; 84484; 85025; 93005; 99284; A4216

== ENCOUNTER → 2024-03-26 | Outpatient (CLI) | payer OTHER, SELFPAY | END | disposition home or self-care (01) | LOC: LABSPEC 15:23 | PROVIDERS: PCP Family Medicine; Referring Provider Family Medicine; Visit Provider Family Medicine | DX: R30.0 Dysuria (principal) | CPT/HCPCS: 87086; 87088 ==

== ENCOUNTER → 2024-04-16 | Outpatient (CLI) | payer OTHER, SELFPAY ==
--- NOTE | 2024-04-16 12:43 | US_ITS ---
STUDY: RENAL ULTRASOUND - COMPLETE REASON FOR EXAM: Female, 73 years old. HEMATURIA TECHNIQUE: Ultrasound evaluation of the kidneys was performed with real-time and static barrett-scale imaging. COMPARISON: None. FINDINGS: RIGHT KIDNEY: Normal location of the right kidney, which is normal in size. The right kidney measures 10.3 cm. There is a normal cortex of the right kidney. The renal cortex measures cm. 8 mm cyst lower pole right kidney. There are no right renal calculi. There is no right hydronephrosis. DISTAL RIGHT URETER: There is non-visualization of the distal right ureter. There is no demonstrated right ureterovesical junction calculus. There is a visualized right ureteral jet. LEFT KIDNEY: Normal location of the left kidney, which is normal in size. The left kidney measures 11.3 cm. There is a normal cortex of the left kidney. The renal cortex measures 1.1 cm. There is no left renal mass or cyst. There are no left renal calculi. There is no left hydronephrosis. DISTAL LEFT URETER: There is non-visualization of the distal left ureter. There is no demonstrated left ureterovesical junction calculus. There is a visualized left ureteral jet. BLADDER: The distended urinary bladder has a volume of 226 ml. The empty urinary bladder has a volume of ml. There is a normal wall thickness of the distended urinary bladder. There is no demonstrated mass within the urinary bladder. There are no demonstrated bladder calculi. US/Kidney and Bladder IMPRESSION: Normal ultrasound of the kidneys and urinary bladder. Electronically Signed: Kamran Nye MD at 18:02 EST ,
== END | disposition home or self-care (01) ==
PROVIDERS: PCP Family Medicine; Referring Provider Urology; Visit Provider Urology
DX: R31.9 Hematuria, unspecified (principal)
CPT/HCPCS: 76770

== ENCOUNTER → 2024-05-25 | Outpatient (CLI) | payer SELFPAY, OTHER ==
--- NOTE | 2024-05-25 14:34 | CT_ITS ---
PROCEDURE: ABDOMEN/PELVIS WITHOUT CONTRAST REASON FOR EXAM: Urinary tract infection symptoms for 2 months. TECHNIQUE: Contiguous axial scans of 2.5 mm slice thicknesses. Sagittal and coronal reconstruction images were obtained. One or more dose reduction techniques were used (e.g., automated exposure control, adjustment of mA and/or kv according to patient size, use of iterative reconstruction technique). COMPARISON: Ultrasound kidneys and bladder dated 04/16/2024. FINDINGS: Lung bases: Mild subsegmental atelectasis and/or parenchymal scarring in the lung bases. Liver: Unremarkable. Gallbladder: Unremarkable. Contracted. Spleen: Unremarkable. A 1.2 cm splenule, axial image 58. Pancreas: Unremarkable. Adrenals: Unremarkable. Kidneys: Unremarkable. Bladder: Unremarkable. Reproductive Organs: Unremarkable. Bowel: Diverticulosis of the descending and sigmoid colon without signs of diverticulitis. Appendix: Normal. Lymph nodes: No suspicious lymph node enlargement. Vasculature: Major vascular structures are unremarkable. Phleboliths in the pelvis. Peritoneum / Retroperitoneum: No ascites. No free air. Bones: Multilevel spondylosis. Severe degenerative disc disease, L5-S1. CT/Abdomen/Pelvis without Cont IMPRESSION: 1. Diverticulosis without signs of diverticulitis. 2. Small splenule. Reading Location: [facility]
== END | disposition home or self-care (01) ==
PROVIDERS: PCP Family Medicine; Referring Provider Urology; Visit Provider Urology
DX: N21.0 Calculus in bladder (principal)
CPT/HCPCS: 74176

== ENCOUNTER → 2024-06-05 | Outpatient (CLI) | payer SELFPAY, OTHER ==
--- NOTE | 2024-06-05 14:01 | CDU_ITS ---
Reason For Study Reason For Study: Eval for Carotid Disease Rt. Velocities/BP Lt. Velocities/BP Prox CCA 107/30 cm/sec. Prox CCA 134/29 cm/sec. Mid CCA 97/31 cm/sec. Mid CCA 99/30 cm/sec. Dist CCA 86/28 cm/sec. Dist CCA 88/30 cm/sec. Prox ICA 73/25 cm/sec. Prox ICA 84/25 cm/sec. Mid ICA 91/29 cm/sec. Mid ICA 116/31 cm/sec. Dist ICA 101/38 cm/sec. Dist ICA 140/47 cm/sec. Rt. ICA/CCA = 1.1. Lt. ICA/CCA = 1.4. Prox ECA 99/18 cm/sec. Prox ECA 65/12 cm/sec. Rt. Vert. 66/17 cm/sec. Lt. Vert. 54/16 cm/sec. Right Extracranial There is intimal thickening but no significant atherosclerotic plaque noted in the right common carotid artery. There is heterogeneous, irregular atherosclerotic plaque noted in the right internal carotid artery. There is intimal thickening but no significant atherosclerotic plaque noted in the right external carotid artery. Antegrade flow is noted in the right vertebral artery. Left Extracranial There is intimal thickening but no significant atherosclerotic plaque noted in the left common carotid artery. There is heterogeneous, irregular atherosclerotic plaque noted in the left internal carotid artery. There is no significant atherosclerotic plaque noted in the left external carotid artery. Antegrade flow is noted in the left vertebral artery. Procedure Carotid Duplex [id number]. This is a Carotid Duplex examination using B-mode, color flow and specral Doppler. Exam performed in department. VL/Carotid Duplex Ultrasound Interpretation Summary Mild (<50%) stenosis right extracranial internal carotid. Moderate (50-69%) stenosis left extracranial internal carotid. Patent and antegrade vertebrals bilaterally. Ordering Physician: Trace To Referring Physician: Carson Pierce Performed By: Nai To, RDCS, RVT
== END | disposition home or self-care (01) ==
PROVIDERS: PCP Family Medicine; Referring Provider Nurse Practitioner Family; Visit Provider Nurse Practitioner Family
DX: I65.22 Occlusion and stenosis of left carotid artery (principal); R42 Dizziness and giddiness
CPT/HCPCS: 93880

== ENCOUNTER → 2024-07-06 | Outpatient (CLI) | payer OTHER, SELFPAY ==
--- NOTE | 2024-07-06 11:55 | FLU_PTH ---
PATIENT: RENEA MANN LOC: [facility] U#:[id number] AGE/SX: 73/F ROOM: RE07/06/[address]: SHRUTHI Dueñas : 1950 BED: DIS: 07/06/2024 SPEC #: [id number] RECD: 07/07/24 10:00 STATUS: SAGRARIO PAIGE #: [id number] CRISTHIAN: 07/06/24 11:[address]: Nai Goode DEPT: CYTOLOGY RECD BY: Ebenezer Mccain ENTERED: 07/07/24 10:01 SP TYPE: Fluid OTHR DR: Dr. Carson Pierce, DO Tissues: Urine Procedures: Special Stain Group II Surgery Specimen Level IV Cytospin Fluid HEADER OPERATION: Not noted PRE-OP DIAGNOSIS: Hematuria TISSUE SUBMITTED: Urine for cytology DIAGNOSIS CYTOLOGY Urine, cytology:Numerous benign squamous cellsNegative for malignant cellsOziel mane MD, 07/08/2024 CYTOLOGY STUDY Slides are reviewed. CYTOLOGY GROSS A- Received is 10 ml of yellow-cloudy fluid labeled with the patient's name and and designated per the requisition as urine. Submitted for cytology preparation. Mr 07/07/2024 CPT: 83142 , TC:4
[2024-07-06 11:57] LABS: Cytology, Body Fluid / CSF SEE PATHOLOGY REPORT
== END | disposition home or self-care (01) ==
LOC: BFHLAB 11:53 → LABSPEC 11:54
PROVIDERS: PCP Family Medicine; Visit Provider Nurse Practitioner Family
DX: R31.9 Hematuria, unspecified (principal)
CPT/HCPCS: 87086; 87088; 88108; 88305; 88313

== ENCOUNTER → 2024-11-27 | Outpatient (CLI) | payer OTHER, SELFPAY ==
--- OUTSIDE RECORDS SUMMARY | 2024-11-27 16:07 | XMS RPT_ITS | CCD ---
Author Organization [facility] Care Team Providers Care [employer] Ax Consultant Name Role Phone Dr. Daron Pierce Primary Care Provider Dr. Daron Pierce Referring Provider Dr. Georges Dale Attending Provider DARON PIERCE Consulting Unavailable SUPRIYA SMALL Attending Unavailable SUPRIYA SMALL Primary Care Unavailable SUPRIYA SMALL Admitting Unavailable PROVIDER, UNKNOWN Consulting Unavailable DARON PIERCE Attending Unavailable DARON PIERCE Consulting Unavailable DARON PIERCE Primary Care Unavailable DARON PIERCE Admitting Unavailable PROVIDER, UNKNOWN Consulting Unavailable Dr. Daron Pierce DO Primary Care Provider [phone] Dr. Daron Pierce DO Attending Provider Dr. Daron Pierce DO Referring Provider Dr. Supriya Small MD Attending Provider [phone] Dr. Supriya Small MD Referring Provider Zuleika PERSONNEL ASSISTANT-C, Trace Dominguez Attending Provider Zuleika PERSONNEL ASSISTANT-CTrace Referring Provider [phone] Ollie Lozano MD Attending Provider [phone] Russel PERSONNEL ASSISTANT-C, Nai Attending Provider [phone] Daron Pierce Primary Care Unavailable Trace To Attending Unavailable RoofTrace H Referring Unavailable StanDaron williamson Referring Unavailable Trace To H Attending Unavailable Daron Pierce Primary Care Unavailable Daron Pierce Primary Care Unavailable SailorsJose Attending Unavailable SailorsJose Referring Unavailable Daron Pierce Primary Care Unavailable Ollie Lozano Attending Unavailable Trace To Referring Unavailable Supriya Small Attending Unavailable Supriya Small Referring Unavailable Daron Pierce Primary Care Unavailable Supriya Small Attending Unavailable Supriya Small Referring Unavailable Daron Pierce Primary Care Unavailable Ethan Herzog Attending Unavailable StanDaron williamson Primary Care Unavailable StanDaron williamson Primary Care Unavailable Nai Goode Attending Unavailable Daron Pierce Attending Unavailable Daron Pierce Referring Unavailable StanDaron williamson Primary Care Unavailable Allergies Allergy Classification Reported Allergen(s) Allergy Type Date of Onset Reaction(s) Facility (3 sources) atorvastatin Drug Allergy 07-19-2021 Myalgias [facility] (3 sources) EPINEPHrine Drug Allergy 07-19-2021 Other [facility] Comment on above: HEART RACING (3 sources) Pravastatin Drug Allergy 07-19-2021 Myalgias [facility] (1 source) Ciprofloxacin Drug Allergy 05-14-2024 [facility] (1 source) levoFLOXacin Drug Allergy 05-14-2024 [facility] (1 source) atorvastatin Drug Allergy 05-14-2024 [facility] Repository (1 source) Ciprofloxacin Drug Allergy 05-14-2024 [facility] Rep[facility] (1 source) EPINEPHrine Drug Allergy 05-14-2024 [facility] Repository (1 source) levoFLOXacin Drug Allergy 05-14-2024 [facility] (1 source) Pravastatin Drug Allergy 05-14-2024 [facility] Repository Medications Current Medications Medication Drug Class(es) Dates Sig (Normalized) Sig (Original) amLODIPine 2.5 mg oral tablet (20 sources) Dihydropyridine Calcium Channel Toan Start: 06-03-2023 take 1 tablet by mouth once daily Amlodipine 2.5 mg tablet Active 2.5 mg PO DAILY June 03, 2023 4:03pm Start: 03-23-2020 End: 03-23-2020 take 1 tablet by mouth once daily Amlodipine 10 mg tablet Discontinued 10 mg PO DAILY March 23, 2020 1:00am March 23, 2020 3:43pm Start: 05-20-2019 End: 06-03-2023 take 1 tablet by mouth once daily, then take 2 tablets by mouth once daily Amlodipine 5 mg tablet Discontinued 5 mg PO .COMPLEX 180 October 26, 2020 2:50pm December 08, 2020 7:32pm 5 mg PO daily, but if SP 150 or greater, take 10 mg daily; Start: 07-24-2018 End: 03-13-2019 take 2 tablets by mouth once daily Amlodipine 5 mg tablet Discontinued 10 mg PO DAILY July 24, 2018 5:09pm March 13, 2019 4:34pm Start: 07-24-2018 End: 03-13-2019 take 10 mg by mouth once daily Amlodipine Discontinued 10 MG PO DAILY July 24, 2018 5:09pm March 13, 2019 4:34pm Start: 04-12-2017 End: 07-24-2018 take 1 tablet by mouth once daily as needed Amlodipine 5 mg tablet Discontinued 5 mg PO DAILY as needed March 05, 2018 2:06pm March 05, 2018 2:33pm asparagus allergenic extract (1 source) Non-Standardized Food Allergenic Extract Start: 05-14-2024 asparagus Active 1 NMA PO 3 times daily May 14, 2024 1:00am Cholecalciferol (4 sources) Vitamin D Start: 05-14-2024 cholecalcifero l (vitamin D3) Active SL May 14, 2024 1:00am Start: 04-12-2017 End: 03-05-2018 take 1 mL by mouth once daily Cholecalciferol (Vitamin D3) 15 ML drops Discontinued 15 mL PO DAILY April 12, 2017 1:00am March 05, 2018 2:06pm Start: 04-12-2017 End: 03-05-2018 take 1 mL by mouth once daily Cholecalciferol (Vitamin D3) Discontinued 15 ML PO DAILY April 12, 2017 1:00am March 05, 2018 2:06pm Cranberry (1 source) Non-Standardized Food Allergenic Extract, Non-Standardized Plant Allergenic Extract Start: 05-14-2024 take 1 capsule by mouth once daily at mealtime Cranberry 500 mg capsule Active 500 mg PO daily May 14, 2024 1:00am administer with meals Kidney Chi (1 source) Start: 05-14-2024 Kidney Chi Active 1 NMA PO 3 times daily May 14, 2024 1:00am Lactobacillus Combination No.9 (Adult 50 Plus Probiotic) 4 billion cell capsule (3 sources) Start: 03-08-2021 take 4 capsules by mouth once daily Lactobacillus Combination No.9 (Adult 50 Plus Probiotic) 4 billion cell capsule Active 4000 NMA PO DAILY March 08, 2021 1:00am administer with a meal Start: 03-08-2021 take 4 capsules by m outh once daily Lactobacillus Combination No.9 (Adult 50 Plus Probiotic) 4 billion cell capsule Active 4000 MMU CELLS PO DAILY March 08, 2021 1:00am administer with a meal Start: 03-08-2021 take 4 capsules by m outh once daily Lactobacillus Combination No.9 (Adult 50 Plus Probiotic) 4 billion cell capsule Active 4000 MMU CELLS PO DAILY March 08, 2021 12:00am administer with a meal Magnesium (4 sources) Start: 05-14-2024 take 1 tablet by allen th twice daily Magnesium 250 mg tablet Active 250 mg PO TWICE A DAY May 14, 2024 12:18pm Start: 03-08-2021 End: 05-14-2024 take 1 tablet by mouth once daily Magnesium 250 mg tablet Discontinued 250 mg PO DAILY March 08, 2021 1:00am May 14, 2024 12:20pm Start: 03-08-2021 take 250 mg by mouth once magdalene y Magnesium Active 250 MG PO DAILY March 08, 2021 1:00am Start: 03-08-2021 take 250 mg by mouth once magdalene y Magnesium Active 250 MG PO DAILY March 08, 2021 12:00am [place]-3 Fatty Acids (Fish Oil) Capsule (3 sources) Start: 07-18-2021 take 1 capsule by mouth once daily [place]-3 Fatty Acids (Fish Oil) Capsule Active 1250 mg PO DAILY July 18, 2021 12:00am Start: 07-18-2021 take 1 capsule by mouth once d aily C[place]-3 Fatty Acids (Fish Oil) Capsule Active 1250 MG PO DAILY July 18, 2021 12:00am Start: 07-18-2021 take 1 capsule by mouth once d aily [place]-3 Fatty Acids (Fish Oil) Capsule Active 1250 MG PO DAILY July 17, 2021 11:00pm Vitamin B Complex (B Complex ) Capsule (3 sources) Start: 07-18-2021 Vitamin B Comp bita (B Complex) Capsule Active 1 NMA PO DAILY July 18, 2021 12:00am Start: 07-18-2021 take 1 capsule by mo uth once daily Vitamin B Complex (B Complex) Capsule Active 1 CAP PO DAILY July 18, 2021 12:00am Start: 07-18-2021 take 1 capsule by mo ut once daily Vitamin B Complex (B Complex) Capsule Active 1 CAP PO DAILY July 17, 2021 11:00pm Completed/Discontinued Medications Medication Drug Class(es) Dates Sig (Normalized) Sig (Original) ascorbic acid 500 mg oral tablet (3 sources) Vitamin C Start: 03-05-2018 End: 05-14-2024 take 2 tablets by mouth once daily Ascorbic Acid (Vitamin C) 500 mg tablet Discontinued 1000 mg PO DAILY March 05, 2018 1:00am May 14, 2024 12:17pm Start: 03-05-2018 take 1000 mg by mouth once kody ly Ascorbic Acid (Vitamin C) Active 1000 MG PO DAILY March 05, 2018 1:00am Cod Liver Oil (2 sources) Start: 03-13-2019 End: 05-03-2021 take 1 capsule by mouth once daily Cod Liver Oil Discontinued 1 CAP PO DAILY March 13, 2019 1:00am May 03, 2021 11:26am Start: 03-13-2019 End: 05-03-2021 take 1 capsule by mouth once daily Cod Liver Oil Discontinued 1 CAP PO DAILY March 13, 2019 12:00am May 03, 2021 10:26am Cod Liver Oil capsule (1 source) Start: 03-13-2019 End: 05-03-2021 Cod Liver Oil capsule Discontinued 1 NMA PO DAILY March 13, 2019 1:00am May 03, 2021 11:26am ezetimibe 10 mg oral tablet (8 sources) Dietary Cholesterol Absorption Inhibitor Start: 03-22-2022 End: 06-03-2023 take 1 tablet by mouth once daily Ezetimibe (Zetia) 10 mg tablet Discontinued 10 mg PO DAILY March 22, 2022 1:00am June 03, 2023 3:40pm Start: 03-08-2021 End: 05-03-2021 take 1 tablet by mouth once daily Ezetimibe (Zetia) 10 mg tablet Discontinued 10 mg PO DAILY March 08, 2021 1:00am May 03, 2021 11:26am Start: 03-13-2019 End: 04-01-2019 take 1 tablet by mouth once daily Ezetimibe (Zetia) 10 mg tablet Discontinued 10 mg PO DAILY March 13, 2019 1:00am April 01, 2019 10:48am famotidine 20 mg oral tablet (5 sources) Histamine-2 Receptor Antagonist Start: 03-22-2022 End: 06-03-2023 take 1 tablet by mouth once daily as needed Famotidine 20 mg tablet Discontinued 20 mg PO DAILY as needed March 22, 2022 5:04pm June 03, 2023 3:40pm Start: 07-21-2021 End: 03-22-2022 take 1 tablet by mouth twice daily Famotidine 20 mg tablet Discontinued 20 mg PO TWICE A DAY 60 July 21, 2021 12:00am March 22, 2022 5:05pm gemfibrozil 600 mg oral tablet (9 sources) Peroxisome Proliferator Receptor alpha Agonist Start: 04-17-2019 End: 03-02-2020 take 0.5 tablet by mouth at dinner Gemfibrozil 600 mg tablet Discontinued 300 mg PO TWICE A DAY April 17, 2019 1:13pm March 02, 2020 3:04pm Take 1/2 tab by mouth 30 minutes prior to morning and evening meals Start: 04-17-2019 End: 03-02-2020 take 0.5 tablet by mouth at dinner Gemfibrozil Discontinued 300 MG PO TWICE A DAY April 17, 2019 1:13pm March 02, 2020 3:04pm Take 1/2 tab by mouth 30 minutes prior to morning and evening meals Start: 04-01-2019 End: 04-17-2019 take 1 tablet by mouth at dinner Gemfibrozil 600 mg tablet Discontinued 600 mg PO TWICE A DAY April 01, 2019 10:49am April 17, 2019 1:15pm Take 1 tab by mouth 30 minutes prior to morning and evening meals losartan potassium 25 mg oral tablet (9 sources) Angiotensin 2 Receptor Toan Start: 12-13-2016 End: 03-05-2018 take 1 tablet by mouth once daily Losartan 25 MG tablet Discontinued 25 mg PO DAILY June 05, 2017 12:03pm March 05, 2018 2:08pm magnesium lactate 84 mg extended release oral tablet (3 sources) Start: 12-14-2014 End: 03-05-2018 take 1 tablet by mouth twice daily Magnesium L-Lactate 84 MG tablet extended release Discontinued 84 mg PO TWICE A DAY December 14, 2014 12:00am March 05, 2018 2:07pm [place] 5-Rqp-Prj-Fish Oil (2 sources) Start: 12-13-2016 End: 03-13-2019 [place] 1-Saj-Ztt-Fish Oil Discontinued 1 EACH PO DAILY December 13, 2016 12:00am March 13, 2019 4:34pm Start: 12-13-2016 End: 03-13-2019 [place] 6-Qor-Fon-Fish Oil Dis continued 1 EACH PO DAILY December 12, 2016 11:00pm March 13, 2019 3:34pm [place] 1-Xhk-Btm-Fish Oil 1 EACH capsule,delayed release(DR/EC) (1 source) Start: 12-13-2016 End: 03-13-2019 take 1 capsule by mouth once daily [place] 8-Tdp-Poe-Fish Oil 1 EACH capsule,delayed release(DR/EC) Discontinued 1 NMA PO DAILY December 13, 2016 12:00am March 13, 2019 4:34pm pantoprazole 40 mg delayed release oral tablet (4 sources) Proton Pump Inhibitor Start: 06-19-2023 End: 05-14-2024 take 1 tablet by mouth once daily Pantoprazole 40 mg tablet,delayed release (DR/EC) Discontinued 40 mg PO DAILY June 19, 2023 1:00am May 14, 2024 12:18pm Start: 07-19-2021 End: 07-21-2021 take 1 tablet by mouth twice daily Pantoprazole 20 mg tablet,delayed release (DR/EC) Discontinued 20 mg PO TWICE A DAY 60 July 19, 2021 12:00am July 21, 2021 4:36pm RABEprazole sodium 20 mg delayed release oral tablet (1 source) Proton Pump Inhibitor Start: 06-03-2023 End: 06-19-2023 take 1 tablet by mouth once daily Rabeprazole 20 mg tablet,delayed release (DR/EC) Discontinued 20 mg PO DAILY June 03, 2023 1:00am June 19, 2023 10:22am ramipril 2.5 mg oral capsule (3 sources) Angiotensin Converting Enzyme Inhibitor Start: 03-05-2018 End: 03-05-2018 take 1 capsule by mouth once daily as needed Ramipril 2.5 mg capsule Discontinued 2.5 mg PO DAILY as needed March 05, 2018 1:00am March 05, 2018 2:29pm Turmeric extract (3 sources) Start: 03-13-2019 End: 03-02-2020 take 1 capsule by mouth once daily Turmeric 400 mg capsule Discontinued 117 mg PO DAILY March 13, 2019 1:00am March 02, 2020 3:04pm Start: 03-13-2019 End: 03-02-2020 take 117 mg by mouth once daily Turmeric Discontinued 117 MG PO DAILY March 13, 2019 1:00am March 02, 2020 3:04pm Start: 03-13-2019 End: 03-02-2020 take 117 mg by mouth once daily Turmeric Discontinued 117 MG PO DAILY March 13, 2019 12:00am March 02, 2020 2:04pm Vitamin B Comp And C No.3 (B Complex Plus Vitamin C) 41-46-42-5-300 mg capsule (3 sources) Start: 03-13-2019 End: 03-02-2020 Vitamin B Comp And C No.3 (B Complex Plus Vitamin C) 17-92-02-5-300 mg capsule Discontinued 1 NMA PO DAILY March 13, 2019 1:00am March 02, 2020 3:05pm Start: 03-13-2019 End: 03-02-2020 Vitamin B Comp And C No.3 (B Complex Plus Vitamin C) 04-14-01-5-300 mg capsule Discontinued 1 CAP PO DAILY March 13, 2019 1:00am March 02, 2020 3:05pm Start: 03-13-2019 End: 03-02-2020 Vitamin B Comp And C No.3 (B Complex Plus Vitamin C) 61-34-15-5-300 mg capsule Discontinued 1 CAP PO DAILY March 13, 2019 12:00am March 02, 2020 2:05pm vitamin b6 50 mg oral capsule (3 sources) Start: 03-13-2019 End: 03-22-2022 take 1 capsule by mouth once daily Pyridoxine (Vitamin B6) 50 mg capsule Discontinued 50 mg PO DAILY March 13, 2019 1:00am March 22, 2022 5:05pm Wine Extract (6 sources) Start: 03-13-2019 End: 05-03-2021 Wine Extract Discontinued 6 NMA PO DAILY March 13, 2019 4:32pm May 03, 2021 11:27am Start: 03-13-2019 End: 05-03-2021 take 6 capsules by mouth once daily Wine Extract Discontinued 6 CAP PO DAILY March 13, 2019 4:32pm May 03, 2021 11:27am Start: 03-13-2019 End: 05-03-2021 take 6 capsules by mouth once daily Wine Extract Discontinued 6 CAP PO DAILY March 13, 2019 3:32pm May 03, 2021 10:27am Start: 12-13-2016 End: 03-13-2019 Wine Extract Discontinued 4 NMA PO DAILY December 13, 2016 12:00am March 13, 2019 4:35pm Start: 12-13-2016 End: 03-13-2019 take 4 capsules by mouth once daily Wine Extract Discontinued 4 CAP PO DAILY December 13, 2016 12:00am March 13, 2019 4:35pm Start: 12-13-2016 End: 03-13-2019 take 4 capsules by mouth once daily Wine Extract Discontinued 4 CAP PO DAILY December 12, 2016 11:00pm March 13, 2019 3:35pm Problems Active Problems Problem Classification Problem Date Documented Da te Episodic/Chronic Calculus of urinary tract (1 source) Calculus in bladder; Translations: [Calculus in bladder] Onset: 5 Episodic Cardiac dysrhythmias (5 sources) Multiple premature ventricular complexes; Translations: [Ventricular premature depolarization] 03-03-2018 Chronic Cardiac dysrhythmias (2 sources) Palpitations; Translations: [Palpitations] 05-17-2023 Episodic Conditions associated with dizziness or vertigo (1 source) Dizziness and giddiness; Translations: [Dizziness and giddiness] Onset: 5 Episodic Disorders of lipid metabolism (5 sources) Hyperlipidemia; Translations: [Hyperlipidemia, unspecified] 03-05-2018 Chronic Esophageal disorders (6 sources) Gastroesophageal reflux disease; Translations: [Gastro-esophageal reflux disease without esophagitis] 08-10-2021 Chronic Esophageal disorders (3 sources) Esophagitis; Translations: [Esophagitis] 08-10-2021 Episodic Essential hypertension (5 sources) Essential hypertension; Translations: [Essential (primary) hypertension] 07-18-2021 Chronic Comment on above: USES BP MED PRN, HAS WHITE COAT SYNDROME Genitourinary symptoms and ill-defined conditions (2 sources) Hematuria, unspecified; Translations: [Dysuria] Onset: 5 Episodic Occlusion or stenosis of precerebral arteries (1 source) Occlusion and stenosis of left carotid artery; Translations: [Occlusion and stenosis of left carotid artery] Onset: 5 Chronic Other and ill-defined heart disease (3 sources) Diastolic dysfunction; Translations: [Other ill-defined heart diseases] 03-03-2018 Chronic Other circulatory disease (2 sources) Disorder of carotid artery; Translations: [Disorder of arteries and arterioles, unspecified] 05-14-2024 Chronic Other connective tissue disease (3 sources) Pain in left lower limb; Translations: [Pain in left leg] 12-13-2016 Episodic Other connective tissue disease (2 sources) Swelling of left lower limb; Translations: [Other specified soft tissue disorders] 07-02-2022 Episodic Other connective tissue disease (2 sources) Pain in calf; Translations: [Pain in left lower leg] 07-02-2022 Episodic Other gastrointestinal disorders (1 source) History of gastroesophageal reflux disease; Translations: [Personal history of other diseases of the digestive system] 10-19-2023 Episodic Other nervous system disorders (3 sources) Paresthesia; Translations: [Paresthesia of skin] 12-08-2020 Episodic Spondylosis; intervertebral disc disorders; other back problems (3 sources) Neck pain; Translations: [Cervicalgia] 12-08-2020 Episodic Past or Other Problems Problem Classification Problem Date Documented Da te Episodic/Chronic Nonspecific chest pain (7 sources) Chest pain; Translations: [Other chest pain] Onset: 10-17-2023 03-08-2021 Episodic Results Test Name Value Interpretation Reference Range Facility Urine Cultureon 07-09-2024 [facility] Mixed Gram Pos Gram Neg Org [place] Count 11,000-25,000 MIXC Mixed contaminants. Submit a new specimen if indicated. Normal [facility] Comment on above: Performed By: #### L 350.1000, M100.2200 ####[facility] [id number] [place], [address] Non-gynecologic cytology rep ortOrdered By: Jose Rodriguez on 07-08-2024 Study report [facility] Other Phone: Cytology report Cyto stain D oc (Body fld)Ordered By: Nai Goode on 07-06-2024 Miscellaneous Cytology SEE PATHOLOGY REPORT [facility] Comment on above: Specimen submitted t o Anatomical Pathology Department for testing. Cytology, Body Fluid / CSFon 07-06-2024 CYTOLOGY,BF/CSF SEE PATHOLOGY REPORT Normal [facility] Comment on above: Order Comment: URINE FOR CYTOLOGY Result Comment: Spec imen submitted to Anatomical Pathology Department for testing. Performed By: #### L 350.1000, M100.2200 ####[facility] [id number] [place], [place], [address] Special Stain Group IIon Special Stain Group II ------ Patient Age/Sex Location Account Attending Physician RENEA MANN 73/F LABSPEC [id number] SHRUTHI Dueñas Specimen: [id number] Received: 07/07/24 Status: SAGRARIO Alberto Num: [id number] Spec Type: Fluid Subm Dr: SHRUTHI Dueñas HEADER OPERATION: Not noted PRE-OP DIAGNOSIS: Hematuria TISSUE SUBMITTED: Urine for cytology DIAGNOSIS CYTOLOGY Urine, cytology:Numerous benign squamous cellsNegative for malignant cellsOziel rodriguez MD, 07/08/2024 CYTOLOGY STUDY Slides are reviewed. CYTOLOGY GROSS A- Received is 10 ml of yellow-cloudy fluid labeled with the patient's name and and designated per the requisition as urine. Submitted for cytology preparation. Mr 07/07/2024 CPT: 60353 , TC:4 Signed (signature on file) Dr. Jose Rodriguez MD 07/08/24 1143 Normal [facility] Comment on above: Performed By: #### P SSII ####[facility] [id number] [place], [place], [id number] Urine cultureOrdered By: Dilma Goode on 07-06-2024 Bacteria identified Cx Nom (U) Mixed Gram Pos & Gram Neg Org Abnormal [facility] URINE CULTURE [CCL]on 2024 Bacteria identified Cx Nom (U) URCUL See Results Below See Below CULTURE, URINE ENTEROCOCCUS FAECALIS 50,000-<100,000 CFU/ml Enterococcus faecalis Cephalosporins, clindamycin, and TMP-SMX are not effective for the treatment of CULTURE, URINE LACTOSE POSITIVE GRAM NEGATIVE BACILLI 10,000 -<50,000 CFU/ml Lactose positive gram negative bacilli Insignificant colony count. No further workup. ORGANISM: ENTEROCOCCUS FAECALIS ANTIBIOTIC MIREILLE DILUTN [place] INTERP Ampicillin <=2 Susceptible Vancomycin 1 Susceptible Nitrofurantoin <=16 Susceptible This test was developed and its performance characteristics determined by the [facility] [place] ([facility] It has not been cleared or approved by the FDA. [facility] is regulated under CLIA as qualified to perform high-complexity testing. This test is used for clinical purposes. It should not be regarded as investigational or for research. SOURCE: Urine (Nonspecific) [facility] [address] [place] [address] Darrion Nicholson III, M.D. [id number] SEND TO YES Normal [facility] Comment on above: Performed By: #### 2 [id number] #### [facility],[address] [place] [address] Bacteria Ur Culton 5 Bacteria identified Cx Nom (U) ORGANISM ID: 1 50,000-<100,000 CFU/ml Enterococcus faecalis Cephalosporins, clindamycin, and TMP-SMX are not effective for the treatment of enterococcal infections. ORGANISM ID: 2 10,000 -<50,000 CFU/ml Lactose positive gram negative bacilli Insignificant colony count. No further workup. ORGANISM ID: 1 (ENTEROCOCCUS FAECALIS) ANTIBIOTIC INTERPRETATION [place] STATUS REFERENCE RANGE Ampicillin S <=2 F Susceptible <=8 , Resistant >8 Vancomycin S 1 F Susceptible <=4 , Intermediate >4 , Resistant >16 Nitrofurantoin S <=16 F Susceptible <=32 , Intermediate >32 , Resistant >64 Abnormal [facility] Comment on above: Performed By: #### 6 30-4 #### [facility] CLIA [id number] [address] [place] [address] [place] Carotid Duplex Ultrasoundon 06-05-2024 Carotid Duplex Ultrasound [facility] [address] [place] [address] Carotid Duplex Ultrasound 06/05/24 1401 MR#: [id number] Acct: [id number] Name: RENEA MANN Rep #: [id number] : 1950 73 From: Ollie Lozano MD Attending Dr: Trace To, PERSONNEL ASSISTANT-C Status: REG CLI Ordering Dr: Trace To NP PERSONNEL ASSISTANT-C Date: 06/05/24 Location: [facility] Sex: F C Admitted: Reason For Study Reason For Study: Eval for Carotid Disease Rt. Velocities/BP Lt. Velocities/BP Prox CCA 107/30 cm/sec. Prox CCA 134/29 cm/sec. Mid CCA 97/31 cm/sec. Mid CCA 99/30 cm/sec. Dist CCA 86/28 cm/sec. Dist CCA 88/30 cm/sec. Prox ICA 73/25 cm/sec. Prox ICA 84/25 cm/sec. Mid ICA 91/29 cm/sec. Mid ICA 116/31 cm/sec. Dist ICA 101/38 cm/sec. Dist ICA 140/47 cm/sec. Rt. ICA/CCA = 1.1. Lt. ICA/CCA = 1.4. Prox ECA 99/18 cm/sec. Prox ECA 65/12 cm/sec. Rt. Vert. 66/17 cm/sec. Lt. Vert. 54/16 cm/sec. Right Extracranial There is intimal thickening but no significant atherosclerotic plaque noted in the right common carotid artery. There is heterogeneous, irregular atherosclerotic plaque noted in the right internal carotid artery. There is intimal thickening but no significant atherosclerotic plaque noted in the right external carotid artery. Antegrade flow is noted in the right vertebral artery. Left Extracranial There is intimal thickening but no significant atherosclerotic plaque noted in the left common carotid artery. There is heterogeneous, irregular atherosclerotic plaque noted in the left internal carotid artery. There is no significant atherosclerotic plaque noted in the left external carotid artery. Antegrade flow is noted in the left vertebral artery. Procedure Carotid Duplex [id number]. This is a Carotid Duplex examination using B-mode, color flow and specral Doppler. Exam performed in department. VL/Carotid Duplex Ultrasound Interpretation Summary Mild (<50%) stenosis right extracranial internal carotid. Moderate (50-69%) stenosis left extracranial internal carotid. Patent and antegrade vertebrals bilaterally. Ordering Physician: Trace To Referring Physician: Daron Pierce Performed By: Nai To, RDCS, RVT 06/08/24 1052 Date Ollie Lozano MD CC: PERSONNEL ASSISTANTLaura To; Dr. Daron Pierce, Date Dictated: 06/05/24 1401 Date Transcribed: 06/08/24 1052 Lens Finisher: Signed Normal [facility] Abdomen/Pelvis without Conto n 05-25-2024 Abdomen/Pelvis without Cont [facility] Imaging Services [address] [place] [address] Abdomen/Pelvis without Cont MR#: [id number] Acct: [id number] Name: RENEA MANN Rep #: [id number] : 1950 F 73 From: Ollie Brito MD PCP: Dr. Daron Pierce, Status: REG CLI Study: Abdomen/Pelvis without Cont Date of Exam: 07/14 Exam# [id number] Ordering Dr: Supriya Small MD PROCEDURE: ABDOMEN/PELVIS WITHOUT CONTRAST REASON FOR EXAM: Urinary tract infection symptoms for 2 months. TECHNIQUE: Contiguous axial scans of 2.5 mm slice thicknesses. Sagittal and coronal reconstruction images were obtained. One or more dose reduction techniques were used (e.g., automated exposure control, adjustment of mA and/or kv according to patient size, use of iterative reconstruction technique). COMPARISON: Ultrasound kidneys and bladder dated 04/16/2024. FINDINGS: Lung bases: Mild subsegmental atelectasis and/or parenchymal scarring in the lung bases. Liver: Unremarkable. Gallbladder: Unremarkable. Contracted. Spleen: Unremarkable. A 1.2 cm splenule, axial image 58. Pancreas: Unremarkable. Adrenals: Unremarkable. Kidneys: Unremarkable. Bladder: Unremarkable. Reproductive Organs: Unremarkable. Bowel: Diverticulosis of the descending and sigmoid colon without signs of diverticulitis. Appendix: Normal. Lymph nodes: No suspicious lymph node enlargement. Vasculature: Major vascular structures are unremarkable. Phleboliths in the pelvis. Peritoneum / Retroperitoneum: No ascites. No free air. Bones: Multilevel spondylosis. Severe degenerative disc disease, L5-S1. CT/Abdomen/Pelvis without Cont IMPRESSION: 1. Diverticulosis without signs of diverticulitis. 2. Small splenule. Reading Location: [facility] CC: Dr. Supriya Small MD; Dr. Daron Pierce DO Lens Finisher: Signed Normal [facility] Cardiology Visit Reporton Cardiology Visit Report [facility] [address] [place] [address]. [address] [place] [address] OFFICE VISIT Date of Service: 05/14/24 MR#: [id number] Acct: [id number] Name: RENEA MANN Rep #: [id number] : 1950 Provider: SHRUTHI arias Age/Sex: 73/F [place] [facility] [place]: Signed HPI HPI History of Present Illness Details: This is a 73-year-old white female who presents today for outpatient cardiovascular follow-up visit. She has a history of PVCs, hyperlipidemia, and hypertension. She states that she only takes her amlodipine on an as needed basis, and has not taken it recently. She states when she does take it, her blood pressure drops to 107/60. She denies chest, arm, jaw, or neck discomfort. She denies palpitations. She denies bilateral lower extremity edema. She denies claudication. She denies shortness of breath with activity, shortness of breath at rest, orthopnea, or PND. She denies chronic cough. She denies significant, sudden weight gain. She states intermittent, sudden dizziness. This can occur going up stairs or moving in bed. She denies lightheadedness, near-syncope, or syncope. She denies blood in urine, blood in stool, or epistaxis. He denies fever with chills. She denies myalgia. She denies fatigue. Her exercise level has remained stable. Intake Vital Signs 06/03/23 14:42 10/11/23 09:59 05/14/24 11:13 Height 5 ft 6 in 5 ft 6 in 5 ft 6 in Weight: 172 lb BMI 27.7 BP 148/86 H Blood Pressure Location Rt brachial Position Sitting Respiration 16 Pulse 68 Pulse Source NIBP Intake Visit Reasons: 1 Y FU/PREV PFM Lime Vat Tender Required: No Is patient in pain?: No Allergies atorvastatin (From Lipitor) Adverse Reaction (Severe, Verified 05/14/24 11:15) Myalgias pravastatin Adverse Reaction (Severe, Verified 05/14/24 11:15) Myalgias ciprofloxacin (From Cipro) Adverse Reaction (Intermediate, Verified 05/14/24 11:15) Fluttering levofloxacin Adverse Reaction (Intermediate, Verified 05/14/24 11:15) fluttering epinephrine Adverse Reaction (Verified 05/14/24 11:15) Other Medications ???Medication ???Instructions ???Recorded ???Confirmed ???Type lactobacillus combination no.9 4 4,000 mmu cells PO DAILY 03/08/21 05/14/24 History billion cell capsule (Adult 50 Plus Probiotic) omega-3 fatty acids 1,250 mg PO DAILY 07/18/21 05/14/24 History vitamin B complex 1 cap PO DAILY 07/18/21 05/14/24 History amlodipine 2.5 mg tablet 2.5 mg PO DAILY BP #90 tabs 06/03/23 05/14/24 Rx Kidney Chi 1 cap PO 3XD 05/14/24 History asparagus 1 cap PO 3XD 05/14/24 History cholecalciferol (vitamin D3) sublingual 05/14/24 05/14/24 History cranberry 500 mg capsule 500 mg PO QDAY 05/14/24 05/14/24 History magnesium 250 mg tablet 250 mg PO BID 05/14/24 05/14/24 History Ejection fraction %: 65 Have you fallen in the past year?: Yes (Slip and fall X 5 in a 1 month period) Nurse's Note: Needs refill on amlodipine [facility] Medical History (Updated 05/14/24 @ 13:18 by Trace To PERSONNEL ASSISTANT, PERSONNEL ASSISTANT-C) Esophageal spasm Wears dentures Wears glasses Post-menopausal Anxiety Arthritis High cholesterol Excessive bleeding Easy bruising Injury of back Back pain Injury of head and neck Difficulty swallowing History of hiatal hernia Gastric reflux Non-smoker Sleep apnea Leg cramps History of echocardiogram History of stress test History of irregular heartbeat Cardiology follow-up encounter Burning chest pain GERD (gastroesophageal reflux disease) Diastolic dysfunction Hyperlipemia Essential hypertension Premature ventricular contraction Surgical History History of cardiac catheterization History of total hysterectomy Family History Father CAD (coronary artery disease) Myocardial infarction, Onset Age: 50 Mother TIA (transient ischemic attack) CVA (cerebral vascular accident) Hypertension Atrial fibrillation Social History Smoking Status: Never smoker alcohol intake: never substance use type: does not use ROS Const Const: Negative for fatigue or weakness Eyes Eyes: Negative for change in vision ENT ENT: Positive for dizziness; Negative for balance problems Cardio Chest Pain: No Palpitations: No Edema: None Muscle aches with walking: None Resp Respiratory: Negative for SOB with activity, SOB at rest or SOB orthopnea SOB lying down GI GI: Negative nausea or heartburn : Negative for hematuria or frequent nighttime urination/ nocturia Musc Musc: Negative for balance problems Skin Skin: Negative non-healing lesions or rash Neuro Neuro: Positive for dizziness; Negative for lightheadedness, near syncope, syncope or weakness End (more content not included)... Normal [facility] Kidney and Bladderon 024 Kidney and Bladder [facility] Imaging Services [address] [place] [address] Kidney and Bladder MR#: [id number] Acct: [id number] Name: RENEA MANN Rep #: [id number] : 1950 F 73 From: Kamran Nye MD PCP: Dr. Daron Pierce, DO Status: REG CLI Study: Kidney and Bladder Date of Exam: 04/16/24 Exam# [id number] Ordering Dr: [place] [id number] STUDY: RENAL ULTRASOUND - COMPLETE REASON FOR EXAM: Female, 73 years old. HEMATURIA TECHNIQUE: Ultrasound evaluation of the kidneys was performed with real-time and static barrett-scale imaging. COMPARISON: None. FINDINGS: RIGHT KIDNEY: Normal location of the right kidney, which is normal in size. The right kidney measures 10.3 cm. There is a normal cortex of the right kidney. The renal cortex measures cm. 8 mm cyst lower pole right kidney. There are no right renal calculi. There is no right hydronephrosis. DISTAL RIGHT URETER: There is non-visualization of the distal right ureter. There is no demonstrated right ureterovesical junction calculus. There is a visualized right ureteral jet. LEFT KIDNEY: Normal location of the left kidney, which is normal in size. The left kidney measures 11.3 cm. There is a normal cortex of the left kidney. The renal cortex measures 1.1 cm. There is no left renal mass or cyst. There are no left renal calculi. There is no left hydronephrosis. DISTAL LEFT URETER: There is non-visualization of the distal left ureter. There is no demonstrated left ureterovesical junction calculus. There is a visualized left ureteral jet. BLADDER: The distended urinary bladder has a volume of 226 ml. The empty urinary bladder has a volume of ml. There is a normal wall thickness of the distended urinary bladder. There is no demonstrated mass within the urinary bladder. There are no demonstrated bladder calculi. US/Kidney and Bladder IMPRESSION: Normal ultrasound of the kidneys and urinary bladder. Electronically Signed: Kamran Nye MD at 18:02 EST , CC: Dr. Supriya Small MD; Dr. Daron Pierce DO Lens Finisher: Signed Normal [facility] Urine Cultureon 03-29-2024 URC CULT SENSITIVITY Below infection level. GNR Poss Pseudomonas sp [place] Count <1000 Normal [facility] Comment on above: Performed By: #### M 100.2200 #### [facility] Laboratory [address] [place] [address], [id number] Urine cultureOrdered By: Felisha Pierce on 03-26-2024 Bacteria identified Cx Nom (U) GNR Poss Pseudomonas sp Abnormal [facility] LIPID PROFILEon 10-23-2023 Cholesterol [Mass/Vol] 263 mg/dL High 0 - 240 [facility] Comment on above: Performed By: #### 2 06984 #### [facility],[address] [place] [address] Cholesterol in HDL [Mass/Vol] 93 mg/dL High 40 - 60 [facility] Comment on above: Performed By: #### 2 12190 #### [facility],[address] [place] [address] Cholesterol in LDL [Mass/Vol] 155 mg/dL High 0 - 129 [facility] Comment on above: Performed By: #### 2 67673 #### [facility],[address] [place] [address] Cholesterol.total/Chol esterol in HDL [Mass ratio] 2.8 {ratio} Normal 0.0 - 5.0 [facility] Comment on above: Performed By: #### 2 56945 #### [facility],[address] [place] [address] Lipid 1996 panel Normal [facility] Comment on above: Result Comment: LIPI D PROFILE Performed By: #### 2 02042 #### [facility],[address] [place] [address] Triglyceride [Mass/Vol] 74 mg/dL Normal 0 - 150 [facility] Comment on above: Performed By: #### 2 36879 #### [facility],[address] [place] [address] VITAMIN D, 25 HYDROXYon 07-0 VitD 44.40 ng/mL Normal 30.00 - 100 [facility] Comment on above: Result Comment: 25-O HD3 indicates both endogenous production and supplementation. 25-OHD2 is an indicator of exogenous sources, such as diet or supplementation. Therapy is based on measurement of Total 25-OHD, with levels <20 ng/mL indicative of Vitamin D deficiency, while levels between 20 ng/mL and 30 ng/mL suggest insufficiency. Optimal levels are >=30ng/mL. Vitamin D, 25-OH D3 Not Established Vitamin D, 25-OH D2 Not Established Performed By: #### 2 84643 #### [facility],[address] [place] [address] 12 Lead EKGon 10-11-2023 12 Lead EKG [facility] Cardiovascular Services [address] [place] [address] 12 Lead EKG 10/11/23 1014 MR#: [id number] Acct: [id number] Name: RENEA MANN Rep #: [id number] : 1950 72 From: Milind So MD Attending Dr: Status: DEP ER Ordering Dr: Ethan Herzog MD Date: 10/11/23 Location: ED Sex: F C Admitted: Test Reason : CP Blood Pressure : / mmHG Vent. Rate : 068 BPM Atrial Rate : 068 BPM P-R Int : 182 ms QRS Dur : 082 ms QT Int : 416 ms P-R-T Axes : 049 050 054 degrees QTc Int : 442 ms Sinus rhythm with frequent Premature ventricular complexes Otherwise normal ECG Confirmed by Milind So ([id number]), metropolitan editor LUIS KAPOOR ([id number]) on 2023 5:57:09 AM Referred By: Confirmed By:Milind So 10/15/23 0557 Date Milind So MD CC: Dr. Ethan Herzog MD; Dr. Daron Pierce DO Signed Normal [facility] Basic Metabolic Profile (BMP )on 10-11-2023 BUN/CRE 25.8 RATIO High 10-20 [facility] Comment on above: Order Comment: 'TROP ' Serial specimen #1, #2 or #3: 1 Performed By: #### L 501.4020, L500.2500, L100.0100 #### [facility] [address] [place], [address] CA,Total 10.0 mg/dL Normal 8.5-10.1 [facility] Comment on above: Order Comment: 'TROP ' Serial specimen #1, #2 or #3: 1 Performed By: #### L 501.4020, L500.2500, L100.0100 #### [facility] [address] [place], [address] Chloride [Moles/Vol] 108 mmol/L High 98-107 [facility] Comment on above: Order Comment: 'TROP ' Serial specimen #1, #2 or #3: 1 Performed By: #### L 501.4020, L500.2500, L100.0100 #### [facility] [address] [place], [address] CO2 [Moles/Vol] 25.0 mmol/L Normal 21.0-32.0 [facility] Comment on above: Order Comment: 'TROP ' Serial specimen #1, #2 or #3: 1 Performed By: #### L 501.4020, L500.2500, L100.0100 #### [facility] [address] [place], [address] Creatinine [Mass/Vol] 0.70 mg/dL Normal 0.55-1.02 [facility] Comment on above: Order Comment: 'TROP ' Serial specimen #1, #2 or #3: 1 Result Comment: The validity of the calculated GFR GFRAA in patients over 70 years has not been determined. Clinical correlation is essential. Performed By: #### L 501.4020, L500.2500, L100.0100 #### [facility] [address] [place], [address] ECRCL 66.71 ml/min Normal [facility] Comment on above: Order Comment: 'TROP ' Serial specimen #1, #2 or #3: 1 Performed By: #### L 501.4020, L500.2500, L100.0100 #### [facility] [address] [place], [address] EST GFR - AA 106 mL/min Normal >60 [facility] Comment on above: Order Comment: 'TROP ' Serial specimen #1, #2 or #3: 1 Result Comment: Afri can Japanese GFR Calc Performed By: #### L 501.4020, L500.2500, L100.0100 #### [facility] [address] [place], [address] GAP 7 Normal 5-15 [facility] Comment on above: Order Comment: 'TROP ' Serial specimen #1, #2 or #3: 1 Performed By: #### L 501.4020, L500.2500, L100.0100 #### [facility] [address] [place], [address] GFR/1.73 sq M.predicted among non-blacks MDRD (S/P/Bld) [Vol rate/Area] 88 mL/min/{1.73_m2} Normal >60 [facility] Comment on above: Order Comment: 'TROP ' Serial specimen #1, #2 or #3: 1 Result Comment: Non- GFR Calc Performed By: #### L 501.4020, L500.2500, L100.0100 #### [facility] [address] [place], [address] Glucose [Mass/Vol] 110 mg/dL High 74-106 [facility] Comment on above: Order Comment: 'TROP ' Serial specimen #1, #2 or #3: 1 Result Comment: Fast ing Glucose result from 100 to 125 mg/dL suggests IMPAIRED HOMEOSTASIS per A.D.A. criteria. Performed By: #### L 501.4020, L500.2500, L100.0100 #### [facility] [address] [place], [address] Potassium [Moles/Vol] 3.8 mmol/L Normal 3.5-5.1 [facility] Comment on above: Order Comment: 'TROP ' Serial specimen #1, #2 or #3: 1 Performed By: #### L 501.4020, L500.2500, L100.0100 #### [facility] [address] [place], [address] Sodium [Moles/Vol] 140 mmol/L Normal 136-145 [facility] Comment on above: Order Comment: 'TROP ' Serial specimen #1, #2 or #3: 1 Performed By: #### L 501.4020, L500.2500, L100.0100 #### [facility] [address] [place], [address] Urea nitrogen [Mass/Vol] 18 mg/dL Normal 7-18 [facility] Comment on above: Order Comment: 'TROP ' Serial specimen #1, #2 or #3: 1 Performed By: #### L 501.4020, L500.2500, L100.0100 #### [facility] [address] [place], [address] CBC W/Diff, Automatedon 06-2 1-2024 Absolute Lymph 1.54 X10 3/uL Normal 0.83-4.51 [facility] Comment on above: Performed By: #### L 501.4020, L500.2500, L100.0100 #### [facility] [address] [place], [address] Absolute Neut 5.5 X10 3/uL Normal 2.0-7.7 [facility] Comment on above: Performed By: #### L 501.4020, L500.2500, L100.0100 #### [facility] [address] [place], [address] Basophils/100 WBC (Bld) 0.7 % Normal 0-1 [facility] Comment on above: Performed By: #### L 501.4020, L500.2500, L100.0100 #### [facility] [address] [place], [address] Eosinophils/100 WBC (Bld) 0.4 % Normal 0-5 [facility] Comment on above: Performed By: #### L 501.4020, L500.2500, L100.0100 #### [facility] [address] [place], [address] Erythrocyte distribution width (RBC) [Ratio] 13.4 % Normal 11.6-14.6 [facility] Comment on above: Performed By: #### L 501.4020, L500.2500, L100.0100 #### [facility] [address] [place], [address] Hematocrit (Bld) [Volume fraction] 41.2 % Normal 37-47 [facility] Comment on above: Performed By: #### L 501.4020, L500.2500, L100.0100 #### [facility] [address] [place], [address] Hemoglobin (Bld) [Mass/Vol] 13.5 g/dL Normal 12.0-15.0 [facility] Comment on above: Performed By: #### L 501.4020, L500.2500, L100.0100 #### [facility] [address] [place], [address] IG% 0.400 Normal 0.0-0.9 [facility] Comment on above: Result Comment: IG% - Immature Granulocytes (promyelocytes, myelocytes and metamyelocytes) > 1% indicates that a LEFT SHIFT is Present. Performed By: #### L 501.4020, L500.2500, L100.0100 #### [facility] [address] [place], [address] Lymphocytes/100 WBC (Bld) 20.5 % Normal 19-41 [facility] Comment on above: Performed By: #### L 501.4020, L500.2500, L100.0100 #### [facility] [address] [place], [address] MCH (RBC) [Entitic mass] 28.8 pg Normal 27.0-32.0 [facility] Comment on above: Performed By: #### L 501.4020, L500.2500, L100.0100 #### [facility] [address] [place], [address] MCHC (RBC) [Mass/Vol] 32.8 g/dL Normal 32-36 [facility] Comment on above: Performed By: #### L 501.4020, L500.2500, L100.0100 #### [facility] [address] [place], [address] MCV (RBC) [Entitic vol] 87.8 fL Normal 81-99 [facility] Comment on above: Performed By: #### L 501.4020, L500.2500, L100.0100 #### [facility] [address] [place], [address] Monocytes/100 WBC (Bld) 5.5 % Normal 0-10 [facility] Comment on above: Performed By: #### L 501.4020, L500.2500, L100.0100 #### [facility] [address] [place], [address] Neutrophils/100 WBC (Bld) 72.5 % High 47-70 [facility] Comment on above: Performed By: #### L 501.4020, L500.2500, L100.0100 #### [facility] [address] [place], [address] Nucleated RBC (Bld) [#/Vol] 0 10*3/uL Normal 0-5 [facility] Comment on above: Performed By: #### L 501.4020, L500.2500, L100.0100 #### [facility] [address] [place], [address] Platelet mean volume (Bld) [Entitic vol] 9.1 fL Normal 6.2-12.0 [facility] Comment on above: Performed By: #### L 501.4020, L500.2500, L100.0100 #### [facility] [address] [place], [address] Platelets (Bld) [#/Vol] 344 10*3/uL Normal 150-450 [facility] Comment on above: Performed By: #### L 501.4020, L500.2500, L100.0100 #### [facility] [address] [place], [address] RBC (Bld) [#/Vol] 4.69 10*6/uL Normal 4.2-5.4 [facility] Comment on above: Performed By: #### L 501.4020, L500.2500, L100.0100 #### [facility] [address] [place], [address] RDW SD 43.2 fl Normal 35.1-43.9 [facility] Comment on above: Performed By: #### L 501.4020, L500.2500, L100.0100 #### [facility] [address] [place], [address] WBC (Bld) [#/Vol] 7.5 10*3/uL Normal 4.4-11.0 [facility] Comment on above: Performed By: #### L 501.4020, L500.2500, L100.0100 #### [facility] [address] [place], [address] Chest 1 View (Portable)on Chest 1 View (Portable) [facility] Imaging Services [address] [place] [address] Chest 1 View (Portable) MR#: [id number] Acct: [id number] Name: RENEA MANN Rep #: [id number] : 1950 F 72 From: Arvin sims MD PCP: Dr. Daron Pierce, DO Status: REG ER Study: Chest 1 View (Portable) Date of Exam: 10/11/23 Exam# [id number] Ordering Dr: [place] [id number] STUDY: X-RAY CHEST REASON FOR EXAM: Female, 72 years old. Chest pain TECHNIQUE: Single AP portable view of the chest. COMPARISON: Comparison is made with prior study of July 02, 2022. FINDINGS: EKG electrodes are seen. Hyperinflation. The lungs are clear. There is no demonstrated pleural abnormality. Normal size heart. Normal mediastinum and tom. Normal visualized pulmonary arteries. Normal visualized aortic arch and descending thoracic aorta. There are diffuse degenerative changes of the visualized thoracic spine. Normal visualized ribs, clavicles, and shoulders. There is no demonstrated abnormality of the visualized soft tissue structures of the upper abdomen. RAD/Chest 1 View (Portable) IMPRESSION: Hyperinflation. The lungs are clear. Electronically Signed: Arvin Norris MD at 10:49 EDT , CC: Dr. Ethan Herzog MD; Dr. Daron Pierce DO Lens Finisher: Signed Normal [facility] Emergency Department Summary on 10-11-2023 Emergency Department Summary [facility] Medical Records Department [address] [place] [address] Emergency Department Summary 10/11/23 MR#: [id number] Acct: [id number] Name: RENEA MANN Rep #: [id number] : 1950 72 From: Ethan Herzog MD PCP: Dr. Daron Pierce DO Status:REG ER Location: ED HPI History of Present Illness Chief Complaint: Chest Pain Informant: patient Onset/Context/Timing Onset: Days Activity at onset: gradual Timing: Intermittent Quality: Positive for Pain Location: Left Parasternal Current Severity: Mild Maximum Severity: Mild Worsened By: Nothing Relieved By: - (Patient believes it may be related to the heat. Better when she is in the air conditioning. It is intermittent. It is not specifically associated with exertion.) Associated Symptoms: Negative for Nausea, Vomiting, Diaphoresis, Dyspnea, Cough, Fever, Lightheadedness, Acid Reflux or Palpitations Narrative Narrative: 72-year-old female history of hypertension, reflux and borderline diabetes. Never been a smoker. Said for last week she has had intermittent left-sided chest discomfort. Denies any fall injury or trauma. No history of PE. Stop pleuritic. She is not short of breath. Is not associated with exertion. She thought it may be secondary to the recent heat wave. Says she feels much better and air conditioning. She has been kind of tired all week. Said before that he weighs started a week or 2 ago she was not having any symptoms. Denies any leg pain or swelling. No hemoptysis. She had a negative stress test 3 years ago and the only heart cath she ever had was 20 years ago and was negative. Prior Similar Symptoms: No Recent Illness/Hospitalization : No CVD Risk Factors: Negative for Hypertension PE Risk Factors: Negative for Recent Travel/Surgery, Recent Immobilization, Prior DVT or PE, Cancer or OCP + Smoking + >/=35 TAD Risk Factors: Negative for Marfan's Syndrome PFSH PFSH Medical History Esophageal spasm Wears dentures Wears glasses Post-menopausal Anxiety Arthritis High cholesterol Excessive bleeding Easy bruising Injury of back Back pain Injury of head and neck Difficulty swallowing History of hiatal hernia Gastric reflux Non-smoker Sleep apnea Leg cramps History of echocardiogram History of stress test History of irregular heartbeat Cardiology follow-up encounter Burning chest pain GERD (gastroesophageal reflux disease) Diastolic dysfunction Hyperlipemia Essential hypertension Premature ventricular contraction Home Medications ???Medication ???Instructions ???Recorded ???Last Taken ???Type ascorbic acid (vitamin C) 500 mg 1,000 mg PO DAILY 03/05/18 Unknown History tablet lactobacillus combination no.9 4 4,000 mmu cells PO DAILY 03/08/21 Unknown History billion cell capsule (Adult 50 Plus Probiotic) magnesium 250 mg tablet 250 mg PO DAILY 03/08/21 Unknown History omega-3 fatty acids 1,250 mg PO DAILY 07/18/21 Unknown History vitamin B complex 1 cap PO DAILY 07/18/21 Unknown History amlodipine 2.5 mg tablet 2.5 mg PO DAILY BP #90 tabs 06/03/23 Unknown Rx pantoprazole 40 mg tablet,delayed 40 mg PO DAILY 06/19/23 Unknown History release Allergy/AdvReac Type Severity Reaction Status Date / Time atorvastatin (From Lipitor) AdvReac Severe Myalgias Verified 10/11/23 10:01 pravastatin AdvReac Severe Myalgias Verified 10/11/23 10:01 epinephrine AdvReac Other Verified 10/11/23 10:01 Family History Father CAD (coronary artery disease) Myocardial infarction, Onset Age: 50 Mother TIA (transient ischemic attack) CVA (cerebral vascular accident) Hypertension Atrial fibrillation Surgical History History of cardiac catheterization History of total hysterectomy Social History Smoking Status: Never smoker alcohol intake: never substance use type: does not use ROS ROS ED ROS Narrative Nonexertional left-sided chest discomfort. Review of Systems ROS Unobtainable: Denies due to encephalopathy Constitutional Constitutional ED: Denies chills or fever(s) Eyes Eyes: Reports none ENT ENT ED: Denies ear pain or rhinorrhea Cardiovascular Cardiovascular: Reports as per HPI and chest pain; Denies palpitations or racing heartbeat Respiratory/Chest Respiratory/Chest: Denies cough or dyspnea Gastrointestinal Gastrointestinal: Denies abdominal pain, constipation, diarrhea, melena, nausea or vomiting Genitourinary Genitourinary ED: Denies dysuria or hematuria Musculoskeletal Musculoskeletal: Denies arthralgias or back pain Integumentary Denies abscess or Abrasions Neurologic Neurologic: Denies headache(s) (more content not included)... Normal [facility] L501.4020on 10-11-2023 TROPONIN-I HS 7 pg/mL Normal 3.0-54.0 [facility] Comment on above: Order Comment: 'TROP ' Serial specimen #1, #2 or #3: 1 Result Comment: Hanny gaytan Note: New Test Units and Gender Specific Reference Ranges. For more information see Policy Stat Procedure [place] High Sensitivity Troponin (TNIH) and attachments. Performed By: #### L 501.4020, L500.2500, L100.0100 #### [facility] [address] [place], [place], [id number] Absolute lymphocyte countOrd ered By: Dr. Garcia on 07-02-2022 Lymphocytes Auto (Unsp spec) [#/Vol] 1.28 10*3/uL 0.83-4.51 [facility] Basophil percentageOrdered B y: Dr. Garcia on 07-02-2022 Basophils/100 WBC (Bld) 0.6 % 0-1 [facility] Chloride [Moles/Vol] 107 mmol/L 98-107 [facility] Eosinophils/100 WBC (Bld) 1.3 % 0-5 [facility] Glucose [Mass/Vol] 113 mg/dL 74-106 [facility] Comment on above: Fasting Glucose resu lt from 100 to 125 mg/dL suggests IMPAIRED HOMEOSTASIS per A.D.A. criteria. Neutrophils (Bld) [#/Vol] 4.6 10*3/uL 2.0-7.7 [facility] Neutrophils/100 WBC (Bld) 71.3 % 47-70 [facility] Potassium [Moles/Vol] 4.0 mmol/L 3.5-5.1 [facility] Sodium [Moles/Vol] 141 mmol/L 136-145 [facility] WBC (Bld) [#/Vol] 6.4 10*3/uL 4.4-11.0 [facility] Blood erythrocytes count (nu mber/volume)Ordered By: Dr. Garcia on 07-02-2022 RBC (Bld) [#/Vol] 4.48 10*6/uL 4.2-5.4 [facility] Blood hemoglobin measurement (mass/volume)Ordered By: Dr. Garcia on 07-02-2022 Hemoglobin (Bld) [Mass/Vol] 13.2 g/dL 12.0-15.0 [facility] Blood lymphocytes/100 leukoc ytesOrdered By: Dr. Garcia on 07-02-2022 Lymphocytes/100 WBC (Bld) 20.1 % 19-41 [facility] Blood monocytes/100 leukocyt esOrdered By: Dr. Garcia on 07-02-2022 Monocytes/100 WBC (Bld) 6.4 % 0-10 [facility] Blood platelet mean volumeOr dered By: Dr. Garcia on 07-02-2022 Platelet mean volume (Bld) [Entitic vol] 8.4 fL 6.2-12.0 [facility] Determination of erythrocyte mean corpuscular volume (MCV)Ordered By: Dr. Garcia on 07-02-2022 MCV (RBC) [Entitic vol] 87.3 fL 81-99 [facility] Hematocrit Auto (Bld) [Volum e fraction]Ordered By: Dr. Garcia on 07-02-2022 Hematocrit (Bld) [Volume fraction] 39.1 % 37-47 [facility] - Chemistry and C hemistry - challengeOrdered By: Dr. Garcia on 07-02-2022 CO2 [Moles/Vol] 27.0 mmol/L 21.0-32.0 [facility] Urea nitrogen/Creatinine [Mass ratio] 30.0 mg/mg 10-20 [facility] - Hematology and Cell countsOrdered By: Dr. Garcia on 07-02-2022 Erythrocyte distribution width (RBC) [Entitic vol] 40.5 fL 35.1-43.9 [facility] Erythrocyte distribution width (RBC) [Ratio] 12.7 % 11.6-14.6 [facility] Immature granulocytes/100 WBC (Bld) 0.300 % 0.0-0.9 [facility] Comment on above: IG% - Immature Granu locytes (promyelocytes, myelocytes and metamyelocytes) > 1% indicates that a LEFT SHIFT is Present. MCH (RBC) [Entitic mass] 29.5 pg 27.0-32.0 [facility] Nucleated RBC/100 WBC (Bld) [Ratio] 0 % 0-5 [facility] MCHC Auto (RBC) [Mass/Vol]Or dered By: Dr. Garcia on 07-02-2022 MCHC (RBC) [Mass/Vol] 33.8 g/dL 32-36 [facility] No Panel InformationOrdered By: Dr. Garcia on 07-02-2022 D-Dimer Quantitative (PE/DVT) 0.72 FEU/ug/m 0.27-0.49 [facility] Comment on above: D-Dimer ELEVATED (>0 .49): Additional studies and clinicalassessments are indicated to conclude diagnosis of:Deep Vein Thrombosis (DVT) or Pulmonary Embolism (PE)CRITICAL VALUE VERIFIED. CALLED TO MARIBEL LUGO07/02/22 4718 Joanna Dumont.RESULTS READ BACK BY SAME. Estimated Creatinine Clearance Calc 49.00 ml/min [facility] Estimated GFR (MDRD) Amer 101 mL/min >60 [facility] Comment on above: GFR Calc Estimated GFR (MDRD) Non-Af Amer 83 mL/min >60 [facility] Comment on above: Non- GFR Calc Troponin I High Sensitivity 5 pg/mL 3.0-54.0 [facility] Comment on above: Please Note: New Ng[place] t Units and Gender Specific Reference Ranges. For more information see Policy Stat Procedure [place] High Sensitivity Troponin (TNIH) and attachments. Platelets bldOrdered By: Dr. Garcia on 07-02-2022 Platelets (Bld) [#/Vol] 337 10*3/uL 150-450 [facility] Serum or plasma calcium [place] urement (mass/volume)Ordered By: Dr. Garcia on 07-02-2022 Calcium [Mass/Vol] 9.4 mg/dL 8.5-10.1 [facility] Serum or plasma creatinine m easurement (mass/volume)Ordered By: Dr. Garcia on 07-02-2022 Creatinine [Mass/Vol] 0.73 mg/dL 0.55-1.02 [facility] Comment on above: The validity of the calculated GFR & GFRAA in patients over 70 years has not been determined. Clinical correlation is essential. Serum or plasma urea nitroge n measurement (mass/volume)Ordered By: Dr. Garcia on 07-02-2022 Urea nitrogen [Mass/Vol] 22 mg/dL 7-18 [facility] Thin prep Papanicolaou smear with manual screeningOrdered By: Dr. Garcia on 07-02-2022 Thin prep Papanicolaou smear with manual screening 7 5-15 [facility] Vital Signs Date Time Vital Sign Value Performing Clinician Guy trujillo 05-14-2024 11:13-0500 Body height 167.[address] Daron Pierce DO Work Phone: [facility] 05-14-2024 11:13-0500 Body mass index (BMI) [Ratio] 27.7 kg/m2 Dr. Daron Pierce DO Work Phone: [facility] 05-14-2024 11:13-0500 Body weight 78.[address] Daron Pierce DO Work Phone: [facility] 05-14-2024 11:13-0500 Diastolic blood pressure 86 mm[Hg] Dr. Daron Pierce DO Work Phone: [facility] 05-14-2024 11:13-0500 Heart rate 68 /min Dr. Daron Pierce DO Work Phone: [facility] 05-14-2024 11:13-0500 Respiratory rate 16 /min Dr. Daron Pierce DO Work Phone: [facility] 05-14-2024 11:13-0500 Systolic blood pressure 148 mm[Hg] Dr. Daron Pierce DO Work Phone: [facility] 07-02-2022 19:40-0400 Diastolic blood pressure 87 mm[Hg] Dr. Daron Pierce Work Phone: [facility] 07-02-2022 19:40-0400 Heart rate 65 /min Dr. Daron Pierce Work Phone: [facility] 07-02-2022 19:40-0400 Respiratory rate 15 /min Dr. Daron Pierce Work Phone: [facility] 07-02-2022 19:40-0400 SaO2% (BldA) [Mass fraction] 98 % Dr. Daron Pierce Work Phone: [facility] 07-02-2022 19:40-0400 Systolic blood pressure 181 mm[Hg] Dr. Daron Pierce Work Phone: [facility] 07-02-2022 14:43-0400 Body height 167.[address] Daron Pierce Work Phone: [facility] 07-02-2022 14:43-0400 Body mass index (BMI) [Ratio] 27.2 kg/m2 Dr. Daron Pierce Work Phone: [facility] 07-02-2022 14:43-0400 Body temperature 97.8 [degF] Dr. Daron Pierce Work Phone: [facility] 07-02-2022 14:43-0400 Body weight 76.[address] Daron Pierce Work Phone: [facility] 03-22-2022 16:03-0500 Body mass index (BMI) [Ratio] 25.7 kg/m2 Dr. Daron Pierce Work Phone: [facility] 03-22-2022 16:03-0500 Body weight 72.[address] Daron Pierce Work Phone: [facility] 03-22-2022 16:03-0500 Diastolic blood pressure 72 mm[Hg] Dr. Daron Pierce Work Phone: [facility] 03-22-2022 16:03-0500 Heart rate 64 /min Dr. Daron Pierce Work Phone: [facility] 03-22-2022 16:03-0500 Respiratory rate 16 /min Dr. Daron Pierce Work Phone: [facility] 03-22-2022 16:03-0500 Systolic blood pressure 142 mm[Hg] Dr. Daron Pierce Work Phone: [facility] Encounters Encounter Date Encounter Type Care Provider Facility Start: 07-06-2024 End: 07-06-2024 Patient encounter procedure Nai Goode PERSONNEL ASSISTANT-C -Laboratory, Specimen Work Phone: Start: 07-06-2024 End: 07-06-[address] Daron Pierce DO Work Phone: [facility] Work Phone: Start: 07-06-2024 End: 07-06-2024 ambulatory Daron Pierce Facility:[facility] Start: 06-15-2024 End: [facility]15[facility]: 06-05-2024 ambulatory Daron Pierce Facility: [facility] [place] Start: 06-05-2024 Non-patient / Non-visit Dr. Ollie robledo MD -[facility] Start: 06-05-2024 End: 06-05-2024 Patient encounter procedure Trace To PERSONNEL ASSISTANT-C -Cardiovascular Services Work Phone: Start: 06-05-2024 End: 06-05-2024 ambulatory Daron Pierce Facility:[facility] Start: 05-25-2024 End: 05-25-[address] Supriya Small MD -Cat Scan, [facility] Work Phone: Start: 05-25-2024 End: 05-25-2024 ambulatory [facility] Facility:[facility] Start: 05-14-2024 End: 05-14-2024 Patient encounter procedure Trace HAWKINS -[facility] Work Phone: Start: 05-14-2024 End: 05-14-2024 ambulatory [facility] Facility:[facility] [place] Start: 04-16-2024 End: 04-16-[address] Supriya Small MD -Ultrasound, [facility] Work Phone: Start: 04-16-2024 End: 04-16-2024 ambulatory [facility] Facility:[facility] Start: 03-26-2024 End: 03-26-[address] Daron Pierce DO -Laboratory, Specimen Work Phone: Start: 03-26-2024 End: 03-26-2024 ambulatory Daron Pierce Facility:[facility] Start: 10-23-2023 End: 10-23-2023 ambulatory DARON PIERCE [facility] Start: 10-11-2023 End: 10-11-2023 Emergency department patient visit Ethan Herzog Facility:[facility] Start: 07-02-2022 End: 07-02-2022 Emergency department patient visit Dr. Daron Pierce Work Phone: [facility]-Emergency Department Start: 03-22-2022 End: 03-22-[address] Daron Pierce Work Phone: [facility] Start: 03-14-2022 End: 03-14-2022 ambulatory [facility] Work Phone: Start: 03-14-2022 End: 03-14-2022 Patient encounter procedure [facility]-Outpatient Breast Imaging Procedures Date Procedure Procedure Detail Performing Clinician Start: 07-06-[address] Daron Pierce DO Work Phone: Start: 05-25-2024 CT of abdomen and pe lvis without contrast Dr. Daron Pierce DO Work Phone: Start: 04-16-[address] Joanne Pierce DO Work Phone: Start: 03-26-[address] Daron Pierce DO Work Phone: Start: 07-02-2022 CT angiography of ch est with contrast Dr. Daron Pierce Work Phone: Start: 07-02-2022 Plain chest X-ray Dr. Cheryl Pierce Work Phone: Start: 03-14-2022 Screening mammography Plan of Treatment Date Care Activity Detail Author Lipid 1996 panel - S alta or Plasma [facility] Patient Education ED Muscle Strain, Extre mity [facility] Work Phone: Patient referral [facility] Work Phone: [facility] Payers Date Payer Category Payer Unknown [id number] 2023 Self-pay [id number] 2023 Unknown [id number] 1950 Unknown [id number] 2.16.8 [id number] Unknown [id number] 1 Unknown [id number] 2.16.8 [id number] Unknown [id number] 2.16.8 [id number] Unknown [id number] 2.16.8 [id number] Unknown [id number] 2.16.8 [id number] Unknown [id number] 2.16.8 [id number] Unknown [id number] 2.16.8 [id number] Unknown [id number] 2.16.8 [id number] Unknown [id number] 2.16.8 [id number] Unknown [id number] 2.16.8 [id number] Social History Date Type Detail Facility Start: 08-10-2021 End: 07-02-2022 Tobacco smoking status ORIS Unknown if ever smoked [facility] Start: 08-30-2020 None [facility] Start: 08-30-2020 Non-smoker [facility] Start: 1950 Sex Assigned At Female W [facility] Start: 10-11-2023 [facility] Start: 07-11-2024 Sex Female (finding) [facility] Evaluation note 05-14-2024 Note Date & Type Note Facility 05-14-2024 Evaluation note Diagnosis Onset Date Resolution Carotid artery disease acute [facility] 2024 11:09am Essential hypertension chronic [facility] 2024 11:09am Hyperlipemia chronic April 11:09am Premature ventricular contraction chronic May 14 11:09am [facility] Work Phone: Discharge summary 07-02-2022 Note Date & Type Note Facility 07-02-2022 Discharge summary Note Date/Time July 02, 2022 4:20pm [facility] Medical Records Department [address] [place] [address] Emergency Department Summary 07/02/22 MR#: [id number] Acct: [id number] Name: RENEA MANN Rep #:[id number] : 1950 71 From: Max Garcia MD PCP: Dr. Daron Pierce, DO Status:REG ER Location: ED HPI History of Present Illness Chief Complaint: Lower Extremity Injury Informant: patient Narrative Narrative: Patient was referred by her primary for some left leg swelling that started on Saturday. She does not think she injured it. She did get up and down out of a chair many times that day but did not think that that really hurt it. She did have a DVT about 40 years ago but not sure which side. She is not on any anticoagulation now. Patient denies any other symptoms. But on specific review of symptoms I do findout that she has had just a slight cough occasionally over the last couple days. She is not short of breath. Its not pain. She just states she has a catching or feeling in her chest. No sputum production or hemoptysis. No pleuritic pain. No lightheadedness. No fevers or chills. PFSH [facility] Medical History Anxiety Arthritis Back pain Burning chest pain Cardiology follow-up encounter Diastolic dysfunction Difficulty swallowing Easy bruising Esophageal spasm Essential hypertension Excessive bleeding Gastric reflux GERD (gastroesophageal reflux disease) High cholesterol History of echocardiogram History of hiatal hernia History of irregular heartbeat History of stress test Hyperlipemia Injury of back Injury of head and neck Leg cramps Non-smoker Post-menopausal Premature ventricular contraction Sleep apnea Wears dentures Wears glasses Home Medications ascorbic acid (vitamin C) 500 mg tablet 1,000 mg PO DAILY 03/05/18 [History Last Taken Unknown] amlodipine 5 mg tablet 5 mg PO DAILY PRN BP 03/08/21 [History Last Taken 07/19/21 06:30] lactobacillus combination no.9 4 billion cell capsule (Adult 50 Plus Probiotic) 4,000 mmu cells PO DAILY 03/08/21 [History Last Taken Unknown] magnesium 250 mg tablet 250 mg PO DAILY 03/08/21 [History Last Taken Unknown] omega-3 fatty acids 1,250 mg PO DAILY 07/18/21 [History Last Taken Unknown] vitamin B complex 1 cap PO DAILY 07/18/21 [History Last Taken Unknown] ezetimibe 10 mg tablet (Zetia) 10 mg PO DAILY 03/22/22 [History Last Taken Unknown] famotidine 20 mg tablet 20 mg PO DAILY PRN 03/22/22 [History Last Taken Unknown] Allergy/AdvReac Type Severity Reaction Status Date / Time atorvastatin [From Lipitor] AdvReac Severe Myalgias Verified 07/02/22 14:46 pravastatin AdvReac Severe Myalgias Verified 07/02/22 14:46 epinephrine AdvReac Other Verified 07/02/22 14:46 Family History Father CAD (coronary artery disease) Myocardial infarction, Onset Age: 50 Mother TIA (transient ischemic attack) CVA (cerebral vascular accident) Hypertension Atrial fibrillation Surgical History History of cardiac catheterization History of total hysterectomy Social History Smoking Status: Never smoker alcohol intake: never substance use type: does not use ROS ROS ED Constitutional Constitutional ED: Denies chills, fever(s) or subjective Eyes Eyes: Denies blurry vision, change in vision or diplopia ENT ENT ED: Denies rhinorrhea or sore throat Cardiovascular Cardiovascular: Reports other Details: See history of present illness peer ; Denies chest pain, palpitations, paroxysmal nocturnal dyspnea or racing heartbeat Respiratory/Chest Respiratory/Chest: Reports cough; Denies dyspnea, dyspnea on exertion, paroxysmal nocturnal dyspnea or sputum Gastrointestinal Gastrointestinal: Denies abdominal pain, nausea or vomiting Genitourinary Genitourinary ED: Denies hematuria Musculoskeletal Musculoskeletal: Reports other Details: Soreness of her left calf. ; Denies arthralgias, back pain or neck pain Integumentary Denies rash Neurologic Neurologic: Denies headache(s), paresthesias or weakness Endocrine Endocrinology: Denies polydipsia or polyuria Hematologic/Lymphatic Hematologic/Lymphatic: Denies easy bleeding, easy bruising or lymphadenopathy Allergic/Immunologic Allergic/Immunologic ED: Denies urticaria EXAM Physical Exam Narrative Exam Narrative: Patient is awake alert no acute distress sitting comfortably in bed. HEENT shows no sign of trauma. Mucous membranes are moist. No sinus tenderness. Neck shows no JVD or stridor. Lungs are completely clear bilaterally. No pain with a deep breath. She is notcoughing. Her saturations are normal at 99% on room air showing no hypoxia. Heart is regular. I hear no murmur gallop or rub. Peripheral pulses are equal and normal. Abdomen is soft completely nontender shows no CVA or suprapubic tenderness Extremities does show some very mild swelling of her left calf. It does not extend proximal to the knee clinically. Although there is some tenderness I do not feel a cord. She does have some varicosities but these are evidently not new. No sign of arterial insufficiency. However, this is concerning for early DVT. Neurologically she is awake alert and appropriate. Const Vital Signs: 07/02/22 14:43 07/02/22 19:01 Temperature 97.8 F Temperature Source Temporal Pulse Rate 89 58 L Respiratory Rate 16 13 Blood Pressure 173/91 H 174/77 H Blood Pressure Mean 118 109 Pulse Ox 99 98 Oxygen Delivery Method Room Air Room Air MDM MDM MDM Narrative Medical decision making narrative: Patient's CBC was normal including platelets. Electrolytes were normal other than mildly high BUN to creatinine ratio. Troponin was negative. I talk with the automobile glass technician. There is no indication of DVT. But he did sayit looks like there may be some muscular injury with some fluid in the area. Patient's D-dimer was elevated. Considering she had leg pain and swelling, history of DVT, and some nonspecific chest symptoms and cough we did do a CTA ofher chest which happily was negative. Patient now states that her getting up and down on a chair was actually standingon a chair to do work on windows. Because she has sore knees she was bending and impacting the left leg more than the right. I think this likely caused her injury. But ice rest and gentle range of motion should get this to resolve. Ifit gets worse or more swelling she should come in because it is still possible to develop a DVT after this injury Lab Data Labs: Laboratory Results - last 24 hr 07/02/22 07/02/22 07/02/22 16:20 16:20 17:04 WBC 6.4 RBC 4.48 Hgb 13.2 Hct 39.1 MCV 87.3 MCH 29.5 MCHC 33.8 RDW Std Deviation 40.5 RDW Coeff of Meir 12.7 Plt Count 337 MPV 8.4 Immature Gran % (Auto) 0.300 Neut % (Auto) 71.3 H Lymph % (Auto) 20.1 [place] % (Auto) 6.4 Eos % (Auto) 1.3 Baso % (Auto) 0.6 Absolute Neuts (auto) 4.6 Absolute Lymphs (auto) 1.28 Nucleated RBC % 0 D-Dimer Quant (PE/DVT) 0.72 H* Sodium 141 Potassium 4.0 Chloride 107 Carbon Dioxide 27.0 Anion Gap 7 BUN 22 H Creatinine 0.73 Estim Creat Clear Calc 49.00 Est GFR (MDRD) Af Amer 101 Est GFR (MDRD) Non-Af 83 BUN/Creatinine Ratio 30.0 H Glucose 113 H Calcium 9.4 Troponin I High Sens 5 Radiography Diagnostic Testing: Clinical Impression(s) from Imaging Studies Chest X-Ray 07/02/22 16:13 IMPRESSION: No acute cardiopulmonary disease. Electronically Signed: Georges Diaz MD at 16:32 EDT , Chest CTA 07/02/22 18:45 IMPRESSION: No pulmonary embolism or aortic dissection. Electronically Signed: Georges Diaz MD at 19:22 EDT , EKG Initial EKG: Comments: My independent interpretation of EKG done for nonspecific chest symptoms shows sinus rhythm with bradycardic rate at 56. No ectopy. No acute ST elevation or depression. RI interval, QRS duration and QTc are normal. Discharge Plan Triage Chief Complaint: Lower Extremity Injury ED Provider: Max Garcia Dx/Rx/DC Orders Clinical Impression: Pain of left calf, Swelling of left lower extremity Instructions: ED Muscle Strain, Extremity Prescriptions: No Action ascorbic acid (vitamin C) 500 mg tablet 1,000 mg PO DAILY magnesium 250 mg tablet 250 mg PO DAILY Adult 50 Plus Probiotic 4 billion cell capsule 4,000 mmu cells PO DAILY Rx Instructions: administer with a meal famotidine 20 mg tablet 20 mg PO DAILY PRN ezetimibe [Zetia] 10 mg tablet 10 mg PO DAILY amlodipine 5 mg tablet 5 mg PO DAILY PRN (Reason: BP) Rx Instructions: 5 mg PO daily, but if SP 150 or greater, take 10 mg daily; vitamin B complex [B Complex] Capsule 1 cap PO DAILY Fish Oil Capsule 1,250 mg PO DAILY Primary Care Provider: Daron Pierce Referrals: Daron Pierce DO [Primary Care Provider] - 1 Week if not improving Disposition Disposition: Home, Self Care What to do if you have Problems For any increased pain, shortness of breath, bleeding, nausea or vomiting, chestpain, or any unexpected problems, contact your Primary Care Provider. Call [facility] ([phone]) or report to the closest Emergency Room. Call 911 if necessary. 07/02/221939 <Electronically signed by Max Garcia MD> Cosigner Signature (if applicable): CC: Dr. Daron Pierce, ~ Signed [facility] Work Phone: Evaluation note Note Date & Type Note Facility Evaluation note No assessment information availa ble [facility] Work Phone: Evaluation note Note Date & Type Note Facility Evaluation note Diagnosis Onset Date Burning chest pain acute Premature ventricular contraction acute Essential hypertension chron ic Hyperlipemia chronic [facility] Work Phone: Reason for referral (narrative) Note Date & Type Note Facility Reason for referral (narrative) No reason for referral information available [facility] Work Phone: Chief Complaint and Reason for Visit Chief Complaint SCREENING Chief Complaint SCREENING 1 y fu LEG PAIN Reason for Visit Burning chest pain Premature ventricular contraction Essential hypertension Hyperlipemia Chief Complaint Admit Date HEMATURIA April 16, 2024 12:42pm 1 Y FU/PREV PFM May 14, 2024 1 1:09am BLADDER STONE May 25, 2024 2 :12pm DIZZINESS June 05, 2024 2:00pm Reason for Visit Admit Date Carotid artery disease May 14 11:09am Essential hypertension May 14 11:09am Hyperlipemia May 14, 2024 1 1:09am Premature ventricular contraction Januar y 2024 11:09am Family History No Family History Records Found Relationship Condition Age at Onset Recorded Date/T claude father Coronary artery disease Unknown Myocardial infarction 50 mother Transient ischemic attack Unknown Cerebrovascular accident (CVA) Unknown Hypertension Unknown Atrial fibrillation Unknown Advance Directives No Advanced Directives Records Found Advance Directive Response Recorded Date/ Time Advance Directives No May 15, 2016 1:22pm Living Will No July 18, 2021 7:51am Power of Audio/Video Technician No July 18 7:51am Advance Directive Response Recorded Date/ Time Advance Directives No May 15, 2016 2:22pm Living Will No July 02, 2022 4:57pm Power of Audio/Video Technician No July 02 4:57pm Advance Directive Response Recorded Date/ Time Living Will No July 02, 2022 4:57pm Do you have a Healthcare Power of Audio/Video Technician? No July 02, 2022 4:57pm Advance Directives No May 15, 2016 2:22pm Summary Purpose Additional Source Comments Goals (unrecognized section and content) Goals may be documented in a n alternate sectionGoals may be documented in an alternate sectionGoals may be documented in an alternate section Care Teams (unrecognized sec tion and content) Team Status: Active Member Role Status Dates Dr. Daron Pierce DO Family Provider Active Dr. Daron Pierce DO Primary Care Provider Active Team Status: Inactive Member Role Status Dates Dr. Daron Pierce DO Primary Care Provider, Referrin g Provider Active Dr. Georges Dale MD Attending Provider Active Team Status: Inactive Member Role Status Dates Dr. Daron Pierce DO Primary Care Provider, Attendin g Provider Active Team Status: Inactive Member Role Status Dates Dr. Daron Pierce DO Primary Care Provider Active Dr. Max Garcia MD Emergency Provider Active Team Status: Active Member Role Status Dates Dr. Daron Pierce DO Primary Care Provider Active Team Status: Inactive Member Role Status Dates Dr. Daron Pierce DO Primary Care Provider Active Start: March 26, 2024 End: March 26, 2024 Dr. Daron Pierce DO Attending Provider Active Start: March 26, 2024 End: March 26, 2024 Dr. Daron Pierce DO Referring Provider Active Start: March 26, 2024 End: March 26, 2024 Team Status: Inactive Member Role Status Dates Dr. Daron Pierce DO Primary Care Provider Active Start: April 16, 2024 End: April 16, 2024 Dr. Supriya Small MD Attending Provider Active Start: April 16, 2024 End: April 16, 2024 Dr. Supriya Small MD Referring Provider Active Start: April 16, 2024 End: April 16, 2024 Team Status: Inactive Member Role Status Dates Dr. Daron Pierce DO Primary Care Provider Active Start: May 14, 2024 End: May 14, 2024 Dr. Daron Pierce DO Referring Provider Active Start: May 14, 2024 End: May 14, 2024 Trace To PERSONNEL ASSISTANT, PERSONNEL ASSISTANT-C Attending Provider Active S tart: May 14, 2024 End: May 14, 2024 Team Status: Inactive Member Role Status Dates Dr. Daron Pierce DO Primary Care Provider Active Start: May 25, 2024 End: May 25, 2024 Dr. Supriya Small MD Attending Provider Active Start: May 25, 2024 End: May 25, 2024 Dr. Supriya Small MD Referring Provider Active Start: May 25, 2024 End: May 25, 2024 Team Status: Inactive Member Role Status Dates Dr. Daron Pierce DO Primary Care Provider Active Start: June 05, 2024 End: June 05, 2024 Trace To PERSONNEL ASSISTANT, PERSONNEL ASSISTANT-C Attending Provider Active S tart: June 05, 2024 End: June 05, 2024 Trace To PERSONNEL ASSISTANT, PERSONNEL ASSISTANT-C Referring Provider Active S tart: June 05, 2024 End: June 05, 2024 Team Status: Active Member Role Status Dates Dr. Daron Pierce DO Primary Care Provider Active Start: June 05, 2024 Dr. Ollie Lozano MD Attending Provider Active S tart: June 05, 2024 Trace To PERSONNEL ASSISTANT, PERSONNEL ASSISTANT-C Referring Provider Active S tart: June 05, 2024 Team Status: Inactive Member Role Status Dates Dr. Daron Pierce DO Primary Care Provider Active Start: July 06, 2024 End: July 06, 2024 Nai Goode NP-C Attending Provider Active St art: July 06, 2024 End: July 06, 2024 INFORMATION SOURCE (unrecogn ized section and content) DATE CREATED AUTHOR 06/21/2024 [facility] DATE CREATED AUTHOR AUTHOR'S ORGANIZ ATION 06/21/2024 [facility] DATE CREATED AUTHOR AUTHOR'S ORGANIZ ATION 07/31/2024 [facility] FOR RECORDS PERTAINING TO PATIENTS WHO ARE [...] BE BASED ON THE PRIMARY CLINICAL RECORDS. [facility]. provides no warranty or guarantee of the accuracy or completeness of information in this document.
== END | disposition home or self-care (01) ==
LOC: LABSPEC 15:28
PROVIDERS: PCP Family Medicine; Referring Provider Family Medicine; Visit Provider Family Medicine
DX: R39.15 Urgency of urination (principal)
CPT/HCPCS: 87086; 87088

== ENCOUNTER → 2025-04-12 | Outpatient (CLI) | payer SELFPAY, OTHER | END | disposition home or self-care (01) | LOC: US 08:23 | PROVIDERS: PCP Family Medicine; Referring Provider Family Medicine; Visit Provider Family Medicine | DX: R10.11 Right upper quadrant pain (principal) | CPT/HCPCS: 76705 ==